=== PATIENT | male | born 1960 | race Caucasian/White ===

== ENCOUNTER 2016-05-26 13:34 | Inpatient (IN) ==
[2016-05-26] MEDS ORDERED: Ondansetron 4 MG/2 ML VIAL IV ONE (13:55)
[2016-05-26] MEDS ORDERED: Aspirin 81 MG TAB.CHEW PO ONE (13:55)
[2016-05-26] MEDS ORDERED: 0.9 % Sodium Chloride 1,000 ML IV SCH (14:00)
--- NOTE | 2016-05-26 14:17 | Emergency Department Note ---
Disposition Clinical Impression: Chest pain, Cough, Nausea and vomiting, Shortness of breath Disposition: Admitted As Inpatient Condition: Serious Referrals: Dara Perry MD [Primary Care Provider] - Forms: Work/School Release, ED Satisfaction Letter General Adult HPI - General Chief complaint: ED General Medical Stated complaint: body aches, yellow emesis Time Seen by Provider: 05/26/16 13:40 Source: patient Limitations: no limitations Nursing Notes Reviewed: Yes Vital Signs Reviewed: Yes - History of Present Illness Pain Scale: 9 - Related Data Home Medications Medication Instructions Recorded Confirmed BuPROPion XL (24 HR) [Wellbutrin 150 mg PO DAILY 12/31/15 05/26/16 XL] Cyclobenzaprine HCl 10 mg PO HS 12/31/15 05/26/16 Gabapentin [Neurontin] 1 - 2 cap PO BID 12/31/15 05/26/16 Lisinopril-HCTZ 10-12.5 [Prinzide 1 tab PO DAILY 12/31/15 05/26/16 10-12.5] Omeprazole [PriLOSEC] 40 mg PO DAILY 12/31/15 05/26/16 Tiotropium [Spiriva] 18 mcg IH DAILY 12/31/15 05/26/16 Etodolac [Lodine] 400 mg PO BID 05/26/16 05/26/16 Finasteride [Proscar] 5 mg PO DAILY 05/26/16 05/26/16 Tamsulosin HCl [Flomax] 0.4 mg PO DAILY 05/26/16 05/26/16 Allergies Allergy/AdvReac Type Severity Reaction Status Date / Time Penicillins [PCN] Allergy Hives Verified 05/26/16 14:35 Winston AdvReac Anaphylaxis Verified 05/26/16 14:35 Past Medical History - Past Medical History Medical history: Reports: COPD, GERD, hypertension, other Surgical history: Reports: appendectomy, herniorrhaphy, orthopedic, other Psychiatric history: Reports: no psych history - Social History Smoking Status: Current every day smoker Smokeless Tobacco Status: No Alcohol use: Reports: none Drug use: Reports: none Physical Exam - General Limitations: no limitations General appearance: alert, in no apparent distress Course Vital Signs Temperature 101 F H 05/26/16 13:36 Pulse Rate 108 05/26/16 13:36 Respiratory Rate 20 05/26/16 13:36 Blood Pressure 132/78 05/26/16 13:36 O2 Sat by Pulse Oximetry 93 L 05/26/16 13:36 Temperature 101 F H 05/26/16 13:36 Pulse Rate 108 05/26/16 14:39 Respiratory Rate 18 05/26/16 14:39 Blood Pressure 123/78 05/26/16 14:39 O2 Sat by Pulse Oximetry 92 L 05/26/16 14:39 Oxygen Delivery Oxygen Delivery Nasal Cannula Medical Decision Making - MDM Narrative Medical decision making narrative: I examined this patient and my medical decision-making was reviewed with the INSTRUMENT AND CONTROL TECHNICIAN/PA/Advanced Practice Nurse/Resident Physician. I agree with the documented findings, disposition and treatment plan as described except to the extent set forth below. Evaluate this patient on arrival with Dr. Barcenas, he presents today with chest pain, then resolved and back also fevers and not feeling well since this morning from 10:30. No cardiac history. Initial EKG was read as acute [place] by the computer when he compared to his old one it does not appear so. We sent it over to Dr. Bains and he says it is probably nonacute an MRI either he said to go ahead and work him up and speak with Dr. Gregoria Ross who is on for interventional cardiology. Nitroglycerin trial workup baby aspirin and reassess. Patient's in agreement with this plan. Chest X-Ray 05/26/16 13:55 IMPRESSION: Negative portable study. D/ / Caryn Jin Cha, MD / Caryn Jin Cha, MD Interpreting Provider: Caryn Jin Cha, MD 1426 hrs. Spoke with the broker associate they said do not call STEMI alert but he would like the patient tocome over to the Civil Technician now. They would lie Brelenta and aspirin. We will get that done and patient will be transferred over the Civil Technician labs are still pending chest x-ray looks good. No widened mediastinum. 1438 hrs.: Spoke with hospitalist also patient once he leaves Civil Technician wall seen a workup with his elevated LFTs. He does appear jaundiced to me also. Uncertain etiology. Patient has been taken by Civil Technician over to the catheter suite. - Lab Data Result diagrams: 05/26/16 14:19 05/26/16 14:19 Lab Results 05/26/16 05/26/16 05/26/16 Range/Units 14:19 14:19 14:19 WBC 14.6 H (4.3-11.1) K/mcL RBC 4.78 (4.19-5.50) M/mcL Hgb 14.4 (12.9-16.9) g/dL Hct 40.3 (37.5-50.1) % MCV 84.3 (83.0-100.0) fL MCH 30.1 (28.0-33.3) pg MCHC 35.7 H (31.6-35.5) g/dL RDW 18.6 H (11.5-14.5) % Plt Count 329 (140-400) K/mcL MPV 10.0 (9.4-12.4) fL Immature Gran % 0.3 (0-4) % Seg Neutrophils % 79.0 % Lymphocytes % 9.0 % Monocytes % 9.5 % Eosinophils % 1.7 % Basophils % 0.5 % Neutrophils # 11.5 H (1.6-8.9) K/mcL Lymphocytes # 1.3 (0.6-4.6) K/mcL Monocytes # 1.4 H (0.0-1.3) K/mcL Eosinophils # 0.3 (0.0-0.6) K/mcL Basophils # 0.1 (0.0-0.2) K/mcL PT 14.5 H (9.4-12.1) Seconds INR 1.3 APTT 30.5 (26.0-36.0) Seconds D-Dimer (0-500) ng/mLFEU Sodium 139 (136-145) mEq/L Potassium 4.4 (3.5-4.5) mEq/L Chloride 105 (98-109) mEq/L Carbon Dioxide 25 (19-29) mEq/L BUN 16 (8-26) mg/dL Creatinine 0.85 (0.72-1.25) mg/dL Est GFR ( Amer) > 60 (> 60) Est GFR (Non-Af Amer) > 60 (> 60) BUN/Creatinine Ratio 19 (6-26) Glucose 90 (70-99) mg/dL Calculated Osmolality 289 (280-300) Calcium 9.8 (8.6-10.8) mg/dL Total Bilirubin 5.4 H (0.2-1.2) mg/dL Direct Bilirubin 3.9 H (0.0-0.5) mg/dL Indirect Bilirubin 1.5 H (0.0-1.2) mg/dL AST 1332 H (5-34) Units/L ALT 1173 H (0-55) Units/L Alkaline Phosphatase 219 H (38-126) Units/L Troponin I (0-0.03) ng/mL Serum Total Protein 7.2 (6.0-8.3) g/dL Albumin 3.3 L (3.5-5.0) g/dL Globulin 3.9 H (2.4-3.5) g/dL Albumin/Globulin Ratio 0.8 L (1.1-2.2) Lipase 13 (8-78) Units/L 05/26/16 05/26/16 Range/Units 14:19 14:19 WBC (4.3-11.1) K/mcL RBC (4.19-5.50) M/mcL Hgb (12.9-16.9) g/dL Hct (37.5-50.1) % MCV (83.0-100.0) fL MCH (28.0-33.3) pg MCHC (31.6-35.5) g/dL RDW (11.5-14.5) % Plt Count (140-400) K/mcL MPV (9.4-12.4) fL Immature Gran % (0-4) % Seg Neutrophils % % Lymphocytes % % Monocytes % % Eosinophils % % Basophils % % Neutrophils # (1.6-8.9) K/mcL Lymphocytes # (0.6-4.6) K/mcL Monocytes # (0.0-1.3) K/mcL Eosinophils # (0.0-0.6) K/mcL Basophils # (0.0-0.2) K/mcL PT (9.4-12.1) Seconds INR APTT (26.0-36.0) Seconds D-Dimer 537 H (0-500) ng/mLFEU Sodium (136-145) mEq/L Potassium (3.5-4.5) mEq/L Chloride (98-109) mEq/L Carbon Dioxide (19-29) mEq/L BUN (8-26) mg/dL Creatinine (0.72-1.25) mg/dL Est GFR ( Amer) (> 60) Est GFR (Non-Af Amer) (> 60) BUN/Creatinine Ratio (6-26) Glucose (70-99) mg/dL Calculated Osmolality (280-300) Calcium (8.6-10.8) mg/dL Total Bilirubin (0.2-1.2) mg/dL Direct Bilirubin (0.0-0.5) mg/dL Indirect Bilirubin (0.0-1.2) mg/dL AST (5-34) Units/L ALT (0-55) Units/L Alkaline Phosphatase (38-126) Units/L Troponin I 0.00 (0-0.03) ng/mL Serum Total Protein (6.0-8.3) g/dL Albumin (3.5-5.0) g/dL Globulin (2.4-3.5) g/dL Albumin/Globulin Ratio (1.1-2.2) Lipase (8-78) Units/L
[2016-05-26] MEDS: Nitroglycerin 0.4 MG TAB.SUBL SL PRN ×3 (14:18→14:38)
[2016-05-26] MEDS ORDERED: *HR* Ticagrelor 90 MG TABLET PO ONE (14:26)
--- NOTE | 2016-05-26 14:26 | Emergency Department Note ---
Disposition Clinical Impression: Cough, Shortness of breath Chest pain Qualifiers: Chest pain type: unspecified Qualified Code(s): R07.9 - Chest pain, unspecified Nausea and vomiting Qualifiers: Vomiting type: unspecified Vomiting Intractability: non-intractable Qualified Code(s): R11.2 - Nausea with vomiting, unspecified Disposition: Admitted As Inpatient Condition: Serious Referrals: Dara Perry MD [Primary Care Provider] - Forms: ED Satisfaction Letter, Work/School Release Time of Disposition: 14:38 Chest Pain HPI - General Chief Complaint: ED General Medical Stated Complaint: body aches, yellow emesis Time Seen by Provider: 05/26/16 13:40 Source: patient Limitations: no limitations Vital Signs Reviewed: Yes Nursing Notes Reviewed: Yes - History of Present Illness HPI Narrative: Patient is a 56-year-old male with hypertension, COPD, GERD. He presents today due to chest pain, shortness of breath, productive cough, rigors. Patient said that the symptoms began this morning around 7 AM. He has had similar chest pain , no pressure, constant and worse with exertion. He has also had productive yellow phlegm. Patient has also had episodes of vomiting with yellow bile. He also admits to generalized abdominal pain. Admits to shortness of breath as well that worsens with exertion. Severity scale (1-10): 9 - Related Data Home Medications Medication Instructions Recorded Confirmed BuPROPion XL (24 HR) [Wellbutrin 150 mg PO DAILY 12/31/15 12/31/15 XL] Cyclobenzaprine HCl 10 mg PO HS 12/31/15 12/31/15 Gabapentin [Neurontin] 1 - 2 cap PO BID 12/31/15 12/31/15 Lisinopril-HCTZ 10-12.5 [Prinzide 1 tab PO DAILY 12/31/15 12/31/15 10-12.5] Omeprazole [PriLOSEC] 40 mg PO DAILY 12/31/15 12/31/15 Tiotropium [Spiriva] 18 mcg IH DAILY 12/31/15 12/31/15 Previous Rx's Medication Instructions Recorded Megestrol Acetate [Megace] 800 mg PO DAILY #400 mls 02/01/16 Hydrocodone/Acetaminophen [Bryant 1 tab PO Q6H PRN #8 tab 04/24/16 5-325 Tablet] Naproxen [Naprosyn] 500 mg PO BID PRN #10 tablet 04/24/16 Allergies Allergy/AdvReac Type Severity Reaction Status Date / Time Penicillins [PCN] AdvReac Hives Verified 04/24/16 17:40 Constitutional: Reports: chills, weakness Cardiovascular: Reports: chest pain Respiratory: Reports: cough, dyspnea Gastrointestinal: Reports: abdominal pain, nausea, vomiting Genitourinary: Denies: urgency, dysuria, frequency Musculoskeletal: Denies: back pain, neck pain Integumentary: Reports: rash Neurological: Reports: headache Chest Pain PMH - Past Medical History Medical history: Reports: COPD, GERD, hypertension, other Surgical history: Reports: appendectomy, herniorrhaphy, orthopedic, other Psychiatric history: Reports: no psych history - Social History Smoking Status: Current every day smoker Alcohol use: Reports: none Drug use: Reports: none Physical Exam - General Limitations: no limitations General appearance: alert, cachectic, other (Appears comfortable, lying on back in pain. ) - Head Head exam: atraumatic, normocephalic, normal inspection - Eye Eye exam: Present: normal appearance, PERRL, EOMI - ENT ENT exam: normal exam, normal oropharynx, mucous membranes moist - Neck Neck exam: Present: normal inspection, full ROM, trachea midline - Chest Chest inspection: Present: normal inspection, symmetric chest wall rise - Respiratory Respiratory exam: Present: wheezes (Mild wheeze in bilateral lower lobes) - Cardiovascular Cardiovascular exam: Present: normal rhythm, tachycardia, normal heart sounds - Abdominal Exam Abdominal exam: Present: soft, tenderness (Generalized abdominal tenderness). Absent: distention, guarding, rebound, rigidity - Extremities Exam Extremities exam: Present: normal inspection, full ROM. Absent: tenderness, pedal edema - Back Exam Back exam: Present: normal inspection, full ROM. Absent: tenderness - Neurological Exam Neurological exam: Present: alert, oriented X3, CN II-XII intact - Psychiatric Psychiatric exam: Present: normal affect, normal mood - Skin Skin exam: Present: warm, dry, intact, normal color Course Course Narrative: Patient is tachycardic, oxygen saturation 93% on room air. He appears cachectic , has active riders on exam. Appears uncomfortable. Complaining of chest pain centered rating it at a 10. We will give aspirin 325, nitroglycerin, his EKG showed elevation in lead V1, V2. This was discussed with both Dr. Bains and Dr. Kessler. Dr. Kessler did not want me to call STEMI but was concerned and wanted me to give the patient belligerent at 180, aspirin 325, and send the patient over to tanbark laborer without finishing his workup and then admit to medicine service. Dr. Chandra accepted patient for admission. Vital Signs Temperature 101 F H 05/26/16 13:36 Pulse Rate 108 05/26/16 13:36 Respiratory Rate 20 05/26/16 13:36 Blood Pressure 132/78 05/26/16 13:36 O2 Sat by Pulse Oximetry 93 L 05/26/16 13:36 Temperature 101 F H 05/26/16 13:36 Pulse Rate 92 05/26/16 14:19 Respiratory Rate 18 05/26/16 14:19 Blood Pressure 131/87 05/26/16 14:19 O2 Sat by Pulse Oximetry 95 05/26/16 14:19 Oxygen Delivery Oxygen Delivery Nasal Cannula Chest Pain - MDM Narrative Medical decision making narrative: Patient is tachycardic, oxygen saturation 93% on room air. He appears cachectic , has active riders on exam. Appears uncomfortable. Complaining of chest pain centered rating it at a 10. We will give aspirin 325, nitroglycerin, his EKG showed elevation in lead V1, V2. This was discussed with both Dr. Bains and Dr. Kessler. Dr. Kessler did not want me to call STEMI but was concerned and wanted me to give the patient belligerent at 180, aspirin 325, and send the patient over to tanbark laborer without finishing his workup and then admit to medicine service. Dr. Chandra accepted patient for admission. S.B.A.RSapphire - S.B.A.RSapphire Situation: Demographics, MOA Background: Presenting Complaint, Relevant PMH, Meds, & Allergies Assessment: Vital Signs, Course and respsone to treatment, Exam Concerns, Patient/Family Expectation, Pertinant Lab Results, Outstanding Labs Recommendation: Barrier(s) to disposition, Recommendation based on pending studies, treatments, or consults S.B.A.RSapphire Report Given to: Dr. Prateek Menezes Repor Time: 14:37
[2016-05-26 14:37] LABS: INR 1.3; Prothrombin Time 14.5 Seconds (9.4-12.1)
[2016-05-26 14:40] LABS: Activated Partial Thrombo Time 30.5 Seconds (26.0-36.0)
[2016-05-26 14:42] LABS: Alanine Aminotransferase 1173 Units/L (0-55); Albumin 3.3 g/dL (3.5-5.0); Albumin/Globulin Ratio 0.8 (1.1-2.2); Alkaline Phosphatase 219 Units/L (38-126); Aspartate Amino Transferase 1332 Units/L (5-34); BUN/Creatinine Ratio 19 (6-26); Bilirubin,Direct 3.9 mg/dL (0.0-0.5); Bilirubin,Indirect 1.5 mg/dL (0.0-1.2); Bilirubin,Total 5.4 mg/dL (0.2-1.2); Blood Urea Nitrogen 16 mg/dL (8-26); Calcium 9.8 mg/dL (8.6-10.8); Carbon Dioxide 25 mEq/L (19-29); Chloride 105 mEq/L (98-109); Globulin 3.9 g/dL (2.4-3.5); Glucose 90 mg/dL (70-99); Lipase 13 Units/L (8-78); Osmolality,Calculated 289 (280-300); Potassium 4.4 mEq/L (3.5-4.5); Sodium 139 mEq/L (136-145); Total Protein 7.2 g/dL (6.0-8.3); eGFR For African Americans > 60 (> 60); eGFR For Non-African Americans > 60 (> 60)
[2016-05-26 14:47] LABS: Basophils # 0.1 K/mcL (0.0-0.2); Basophils % 0.5 %; Eosinophils # 0.3 K/mcL (0.0-0.6); Eosinophils % 1.7 %; Hematocrit 40.3 % (37.5-50.1); Hemoglobin 14.4 g/dL (12.9-16.9); Immature Granulocytes % 0.3 % (0-4); Lymphocytes # 1.3 K/mcL (0.6-4.6); Mean Corpuscular HGB Conc 35.7 g/dL (31.6-35.5); Mean Corpuscular Hemoglobin 30.1 pg (28.0-33.3); Mean Corpuscular Volume 84.3 fL (83.0-100.0); Monocytes # 1.4 K/mcL (0.0-1.3); Monocytes % 9.5 %; Neutrophils # 11.5 K/mcL (1.6-8.9); Platelet Count 329 K/mcL (140-400); Red Blood Count 4.78 M/mcL (4.19-5.50); Red Cell Distribution Width 18.6 % (11.5-14.5)
[2016-05-26] MEDS ORDERED: *HR* Heparin 10,000 UNIT/10 ML VIAL ONE (14:53)
[2016-05-26] MEDS ORDERED: 0.9 % Sodium Chloride 1,000 ML ONE (14:53)
[2016-05-26] MEDS ORDERED: Heparin 1,000 UNITS/500 mL NS 500 ML ONE (14:53)
--- NOTE | 2016-05-26 14:56 | Cardiology Consult Note ---
Date of Encounter: 05/26/16 Time of Encounter: 14:55 Assessment and Plan (1) Unstable angina Current Visit: Yes Status: Acute Patient has ongoing it R 10 chest pain which he says is worse with exertion and associated with shortness of breath. He also has elevated LFTs suggestive of GI pathology. Workup in progress. Due to concerns with an abnormal EKG and ongoing severe chest pain which is concerning for unstable angina and is unrelieved patient will be will taken to the R[facility] Provider Relations. Risks benefits alternatives explained to patient all questions answered he agrees to proceed. He will also need to be worked up for his elevated LFTs fever cough and chills after his catheterization Discussion w patient/family: The assessment and plan as outlined above was discussed with the patient and/or family members who expressed understanding and agreement. All questions were answered. Thank you for involving us in the care of your patient. Please call with any questions. History of Present Illness Consult date: 05/26/16 Requesting physician: Kamari Sarabia Consult reason: Chest pain Chief complaint: Chest pain, unstable angina History of present illness: Mr. Cedeno is a 56 year old male with history of GERD COPD who presents with chest pain shortness of breath nausea vomiting abdominal pain. His EKG shows ST elevation in V1 and V2 and some suggestion of ST elevation 1 and aVL. Pattern somewhat similar to what he had with an EKG done in 2014. But patient complains of midsternal 8 out of 10 chest pain. He says chest pain is worse with exertion shortness of breath is worse with exertion and better with rest. He has no known history of coronary artery disease. His LFTs elevated. Chest x-ray was clear but he had productive cough and sputum was yellowish. On arrival to the catheter lab was complaining of severe irritation central chest pain which he said it started this morning with exertion. Past Med Surg Social Fam HX - Past Medical History Medical history: COPD, GERD, hypertension, other Psychiatric history: no psych history - Past Surgical History Surgical History: appendectomy, herniorrhaphy, orthopedic, other - Social History Smoking Status: Current every day smoker Smokeless Tobacco Status: No Alcohol use: none Drug use: none Medications and Allergies BuPROPion XL (24 HR) [Wellbutrin XL] 150 mg PO DAILY 12/31/15 [History] Cyclobenzaprine HCl 10 mg PO HS 12/31/15 [History] Gabapentin [Neurontin] 1 - 2 cap PO BID 12/31/15 [History] Lisinopril-HCTZ 10-12.5 [Prinzide 10-12.5] 1 tab PO DAILY 12/31/15 [History] Omeprazole [PriLOSEC] 40 mg PO DAILY 12/31/15 [History] Tiotropium [Spiriva] 18 mcg IH DAILY 12/31/15 [History] Etodolac [Lodine] 400 mg PO BID 05/26/16 [History] Finasteride [Proscar] 5 mg PO DAILY 05/26/16 [History] Tamsulosin HCl [Flomax] 0.4 mg PO DAILY 05/26/16 [History] Allergies Penicillins [PCN] Allergy (Verified 05/26/16 14:35) Hives Elkin Adverse Reaction (Verified 05/26/16 14:35) Anaphylaxis All Systems Review: A 10-system review of systems was performed and is negative for pertinent findings except as documented above in the HPI. Physical Examination Vital Signs, Last 4 Hours Temp Pulse Resp BP Pulse Ox 05/26/16 14:39 108 18 123/78 92 L 05/26/16 14:28 70 18 120/88 95 05/26/16 14:19 92 18 131/87 95 05/26/16 13:51 92 L 05/26/16 13:36 101 F H 108 20 132/78 93 L General: Conversant, No Apparent Distress HEENT: Atraumatic, Normocephaly, Mucus Membranes Moist Neck: No JVD, Normal carotid pulses Cardiac: Reg Rate and Rhythm, Normal S1 and S2, No Murmur Lungs: Normal Breath Sounds, No Wheeze, Rales, Rhonchi Neuro: Alert and responsive Abdomen: Soft Skin: No rashes noted on visualized skin Musculoskeletal: No Chest Wall Tenderness Extremities: No Clubbing, No Cyanosis, No Edema, Normal Pulses Results 05/26/16 14:19 05/26/16 14:19 Lab Results 05/26/16 05/26/16 05/26/16 14:19 14:19 14:19 WBC 14.6 H Hgb 14.4 Hct 40.3 Plt Count 329 INR 1.3 APTT 30.5 D-Dimer Sodium 139 Potassium 4.4 Chloride 105 Carbon Dioxide 25 BUN 16 Creatinine 0.85 Glucose 90 Calcium 9.8 Total Bilirubin 5.4 H AST 1332 H ALT 1173 H Alkaline Phosphatase 219 H Troponin I Lipase 13 05/26/16 05/26/16 14:19 14:19 WBC Hgb Hct Plt Count INR APTT D-Dimer 537 H Sodium Potassium Chloride Carbon Dioxide BUN Creatinine Glucose Calcium Total Bilirubin AST ALT Alkaline Phosphatase Troponin I 0.00 Lipase - EKG Interpretation EKG results cardiology: personally reviewed, normal ECG (ST elevations in V1 and V2, aVL. Pattern somewhat similar to EKG from August 2014) Consult Discharge Plan - Plan Referrals: Dara Perry MD [Primary Care Provider] -
[2016-05-26] MEDS ORDERED: Nitroglycerin 1,000 MCG/10 ML VIAL IV ONE (15:00)
--- NOTE | 2016-05-26 15:02 | Pre-Sedation Evaluation ---
Pre-sedation evaluation - Pre-sedation checklist Date of procedure: 05/26/16 Procedure: [facility] Recent Vitals: Last Vital Signs Temp 101 F H 05/26/16 13:36 Pulse 108 05/26/16 14:39 Resp 18 05/26/16 14:39 BP 123/78 05/26/16 14:39 Pulse Ox 92 L 05/26/16 14:39 H&P (including ROS) documented in medical record: Yes Previous reaction to sedatives/anesthetics: No Dietary Status: No solid food in preceding 4 hrs and no liquid in preceding 2 hrs Airway Assessment: Patient can open mouth completely, TMJ function normal Dentition: No loose teeth or bridges Possible difficult airway: No ASA Classification *see protocol: CLASS III-Severe systemic disease Plan of Care: Pt appropriate candidate for procedure/moderate/conscious sedation , Risks/benefits of procedure/sedation discussed w/ patient/family, If not NPO; Risk of intake outweiged by necessity to perform procedure
[2016-05-26] MEDS ORDERED: *HR* FentaNYL (PF) 100 MCG/2 ML VIAL ONE (15:09)
[2016-05-26] MEDS ORDERED: *HR* Midazolam HCl 5 MG/5 ML VIAL IVP ONE (15:09)
[2016-05-26] MEDS ORDERED: 0.9 % Sodium Chloride 1,000 ML IVC SCH ×2 (15:30→21:30)
--- NOTE | 2016-05-26 15:51 | Invasive Diagnostic Lab ---
Name: Christian Cedeno Date of Study: 05/26/2016 Date: 1960 Ht: 178.0 cm /70.1 in Medical Record#: [id number] Age: 56 Wt: 61.2 kg / 134.99 lb Account/Order#: [id number] Gender: Male BSA: 1.77 Order #: [id number] Fluoro Dose: 65 mGy BMI: 19.33 Procedure Physician: Gilles Kessler MD Referring MD: Referring MD: Procedures Performed: LEFT HEART CATH Indications: Unstable Angina Impressions: Coronary arteries are angiographically normal. The left ventricle is normal and has normal contractility EF 60% Recommendations: Optimal medical therapy of patient's disease. Aggressive risk factor modification. History/Risk Factors: Chest Pain GERD Hypertension Current/Recent Smoker Chronic Lung Disease Procedure Access obtained in the right Femoral artery by percutaneous puncture Complications: None, None, None Contrast: Isovue 63ml Closure Device: Perclose ProGlide Hemodynamics: Pressures Site Systolic/ A Wave Diastolic/ V Wave End Diastolic/ Mean HR LV 133 -6 11 96 LV 125 55 67 104 AO 100 39 74 89 LV 137 55 82 91 AO 97 58 77 93 LV Ventriculography Ejection Method: LV Gram Ejection Fraction: 60% Wall Motion: BADILLO Anterobasal Normal Anterolateral Normal Apical: Normal Inferoapical Normal Inferobasal Normal Coronary Dominance: right Lesion Findings/Interventions * Left Main Coronary Artery The LMCA is angiographically free of disease. * Left Anterior Descending The LAD is angiographically free of disease. The 1st Diagonal is angiographically free of disease. * Circumflex The Circumflex is angiographically free of disease. The 1st Marginal is angiographically free of disease. * Right Coronary Artery The RCA is angiographically free of disease. The Right PDA is angiographically free of disease. Updated by RT Kishan (R) on 05/26/2016 3:46:06 PM Gilles Kessler MD electronically signed on 05/26/2016 3:46:42 PM with status of Final
[2016-05-26] MEDS ORDERED: Acetaminophen 325 MG TABLET PO ONE (16:23)
[2016-05-26] MEDS ORDERED: 0.9 % Sodium Chloride 1,000 ML IVC ONE ×3 (16:23→21:30)
[2016-05-26] MEDS ORDERED: MetroNIDAZOLE 500 MG/100 ML 500 MG/100 ML BAG IVPB STA (16:25)
--- NOTE | 2016-05-26 16:25 | Invasive Diagnostic Lab Proc ---
Name: Christian Cedeno Date of Study: 05/26/2016 Date: 1960 Ht: 70.1in Medical Record#: [id number] Age: 56 Wt: 134.99lb Gender: Male BSA: 1.77 Order #: [id number] BMI: 19.33 Physicians Procedure Physician: Gilles Kessler MD Referring MD: Referring MD: Staff Name Position Time In Madi Bustillo RN [place] Boner 03:14 PM Caroline Donovan RT (R) Scrub 03:14 PM Virginia Chase RN Monitor 03:15 PM Indications Indication Unstable Angina Procedures Performed Procedure L HRT ARTERY/VENTRICLE ANGIO Pre-Procedure Checklist Informed consent is complete signed and on chart. H\\T\\P is on chart. ID band is on and ID verified with patient. Patient NPO for procedure The procedure was described for the patient and questions were answered. Blood Pressure: 113/81 ECG is on chart. Rhythm: NSR Plan of Care Patient will tolerate the procedure without complications. Adequate level of comfort will be maintained. Hemodynamics will remain stable Patient will recover from procedure without complications. Respiratory function will be maintained. Cardiac rhythm will remain stable. Patient temperature will be maintained. Patient and/or family have verbalized understanding of the procedure. Patient Education Chief Complaint/Reason for Test: Cardiac Cath Developmental Category: Adult (18-64 years) Developmentally Appropriate for Age: Yes Learning Barriers: None Education Needs: Procedure Education Method: Verbal Information Taught: Cardiac Cath Educational Evaluation: Able to repeat information Intravenous Access Time IV Size Location DC'd Fluid/Drip Rate Units RN 03:02 PM 18g 1 1/4" Patent On Arrival Lt Antecubital 0.9NaCl 25 ml/hr Virginia Chase RN 03:02 PM 18g 1 1/4" Patent On Arrival Rt Antecubital Allergies Penicillin strawberries PCN Vital Signs Time BP (mmHg) HR (bpm) O2 Sat. RR (bpm) LOC 03:03 PM 123 / 78 108 92 % 18 5 = Fully awake and oriented or at pre-proc level 03:16 PM / % 5 = Fully awake and oriented or at pre-proc level 03:16 PM / % 4 = Oriented but drowsy 03:15 PM 113 / 83 74 93 % 17 03:20 PM 120 / 73 86 93 % 30 03:25 PM 108 / 70 91 94 % 32 03:30 PM 126 / 76 91 95 % 28 03:48 PM 104 / 75 110 93 % 22 4 = Oriented but drowsy Procedural Medications Time Medication Dose Units Method Given By 03:15 PM Oxygen 2 L/min nasal cannula Madi Bustillo RN 03:16 PM Versed 1 mg Intravenous Madi Bustillo RN 03:16 PM Fentanyl 50 mcg Intravenous Madi Bustillo RN 03:18 PM Lidocaine 2% 18 ml Subcutaneous Gilles Kessler MD ASA Classification: CLASS III- Severe systemic disease (i.e. prior AMI, diabetes with vascular complications, morbid obesity) Lexii Score Preprocedure Postprocedure Activity 2- Moves 4 extremities sustained head lift Activity 2- Moves 4 extremities sustained head lift Circulation 2- SBP +/= 20 points of pre-anesthetic level Circulation 2- SBP +/= 20 points of pre-anesthetic level Consciousness 2- Awake and alert oriented x 3 Consciousness 2- Awake and alert oriented x 3 O2 Saturation 2- Able to maintain O2 satruation of 92% on room air O2 Saturation 2- Able to maintain O2 satruation of 92% on room air Respiratory 2- Able to deep breathe and cough well Respiratory 2- Able to deep breathe and cough well Total Score 10 Total Score 10 Contrast Agent: Isovue Diagnostic Contrast: 63 ml Total Contrast: 63 ml Fluoro Dose: 65 mGy Procedure Log Time Note Enter By 03:05 PM CathStat 03:10 PM Pt arrived to [facility] 1 at 15:10 dspell 03:10 PM Physician arrived 15:10 03:10 PM Ash and radha completed 03:10 PM Sign in performed according to hospital policy. 03:10 PM Procedure start 15:10 03:14 PM Vitals capture started with the following parameters, Patient=Adult, Interval=5 min, Initial Klyddxbr=215 mmHg, Deflation Rate=5 mmHg 03:14 PM Madi Bustillo RN Position: [place]er Time in: 15:14 03:15 PM Caroline Donovan RT (R) Position: Scrub Time in: 15:14 [facility] 03:15 PM Virginia Chase RN Position: Monitor Time in: 15:15 [facility] 03:15 PM Patient charges- Angio tray pack, Navilyst 3mm J, Pulse Oximetry and ACIST tubing and transducer dspell 03:15 PM Case Delayed No dspell 03:15 PM HR=74 bpm, CKOQ=359/83 mmhg, SpO2=93.0 %, Resp=17 B/min, Comment=nsr 03:15 PM Hair removed from procedure site in procedure lab using clippers. Bilateral groin prepped with Chloraprep by Angie Solorio RT (R) then patient draped. Skin intact. dsp 03:15 PM Time: 15:15 Oxygen on at 2 L/min per nasal cannula by Madi Bustillo RN kayleen 03:16 PM Time: 15:16 Versed 1 mg Intravenous Given by Madi Bustillo RN 03:16 PM Time: 15:16 Fentanyl 50 mcg Intravenous Given by Madi Bustillo RN 03:16 PM Time: 15:16 Patient comfortable and pain free: Yes dsp:16 PM Time: 15:16LOC: 5 = Fully awake and oriented or at pre-proc level dsp 03:16 PM Clinical Presentation: Unstable angina dsp 03:17 PM Recorded ECG: HR=89 Condition=Condition 1 03:18 PM Time out performed according to hospital policy dsp 03:20 PM Time: 15:18 18 ml Lidocaine 2% to right groin Subcutaneous Given by Gilles Kessler MD 03:20 PM HR=86 bpm, GOJD=537/73 mmhg, SpO2=93.0 %, Resp=30 B/min, Comment=nsr 03:20 PM Access obtained by percutaneous puncture. 6Fr 10cm Terumo [place] sheath placed in right Femoral artery. [id number] dspell 03:20 PM 5Fr FL 4 catheter inserted over the wire DN dspell 03:21 PM LCA angiography performed in multiple views. dspell 03:21 PM Catheter removed dspell 03:22 PM 5Fr FR 4 catheter inserted over the wire [facility] dspell 03:23 PM RCA angiography performed in multiple views. dspell 03:24 PM Catheter removed dspell 03:24 PM 5Fr Pigtail catheter inserted over the wire [facility] dspell 03:24 PM Recorded Pressure: LV, HR=96, Condition=Condition 1 (Left Ventricle) LV 133/-6/11 03:24 PM Recorded Pressure: LV, Ao, HR=92, Condition=Condition 1 (Left Ventricle) LV 137/55/82, (Aorta) Ao 97/58/77 03:24 PM Recorded Pressure: LV, Ao, HR=90, Condition=Condition 1 (Left Ventricle) LV 125/55/67, (Aorta) Ao 100/39/74 03:25 PM Catheter removed dspell 03:25 PM Coronary Dominance: right dspell 03:25 PM HR=91 bpm, FMIA=860/70 mmhg, SpO2=94.0 %, Resp=32 B/min, Comment=nsr 03:28 PM Procedure completed at 15:28 dspell 03:29 PM Sign out completed: Radiation Dose 65 mGy Fluoro Time: 1.1 Isovue 370 - 200ml contrast 63 ml given by Gilles Kessler MD. Complications: NoneCardiac Rehab Consult needed: NoConfirmed administered medications: Yes dspellman 03:29 PM Isovue 370 - 200ml,1 Bottle(s) used. dspell 03:30 PM Arterial sheath pulled, Perclose closure device used and was Successful S/N. dspellman 03:30 PM Post ECG NSR dspellman 03:30 PM HR=91 bpm, TEYN=737/76 mmhg, SpO2=95.0 %, Resp=28 B/min, Comment=nsr 03:30 PM Post Blood Pressure 126/76 dspellman 03:30 PM 15:30 Post Pulses Bilateral DP \\T\\ PT 1+ dspell 03:31 PM Information taught Cardiac Cath dspell 03:31 PM Education needs Procedure, Plan of Care, and Responsibilities of Patient in Care dspell 03:31 PM Learning barriers :None dspell 03:31 PM Education Methods Verbal dspell 03:31 PM Education evaluation Able to repeat information dspell 03:31 PM Site status No bleeding/hematoma - Rt Groin as reported by Carmen West RT at 15:31 dspell 03:31 PM Opsite applied dspell 03:31 PM Plavix, Effient or Brilinta given No dspellman 03:31 PM Delay to floor No dspellman 03:32 PM Time: 15:16LOC: 4 = Oriented but drowsy dspellman 03:32 PM Patient out of room: 15:32 dspellman 03:32 PM Family placed in consult room. dspellman 03:32 PM Complications: None dspellman 03:32 PM Fluoro Time: 1.1 dspellman 03:32 PM Isovue 370 - 200ml contrast 63 ml given by Gilles Kessler MD. dspellman 03:33 PM Radiation Dose 65 mGy dspellman 03:44 PM Report given to Fany ODELL Pt taken to E Room #14. 15:44 dspellman 03:44 PM Plavix, Effient or Brilinta given No dspellman 03:44 PM Delay to floor Room is dirty dspellman 03:45 PM Patient out of room: 15:45 dspellman 03:45 PM Family placed in consult room. dspellman 03:45 PM Complications: None dspellman 03:47 PM patient arrive to holding room 2 mprater 03:[address] ng aware of temp 101.5 tempanic , no new orders mprater 04:00 PM transfered patient to [facility], report given to fany sen Complications Complication None None None Hemodynamics Pressures Site Systolic/A Wave Diastolic/V Wave Mean LV 133 -6 11 LV 125 55 67 AO 100 39 74 LV 137 55 82 AO 97 58 77 Post Procedure Information Blood Pressure: 126/76 mmHg Rhythm: NSR Post procedural instructions were given Closure Device Time Device Success/Fail 05/26/2016 3:33:00 PM Perclose ProGlide Successful Site Checks Time Location Status Staff Sheath In? Note 03:31 PM Rt Groin No bleeding/hematoma Carmen West RT 03:48 PM Rt Groin No bleeding/ No Hematoma Zabrina Dunlap RN Pulses Time Site Pre-Procedure Post-Procedure Note 3:30:00 PM Bilateral DP \\T\\ PT 1+ 05/26/2016 3:00:00 PM Bilateral DP \\T\\ PT 1+ 05/26/2016 3:48:00 PM Bilateral DP \\T\\ PT 1+ Updated by Zabrina Dunlap RN on 05/26/2016 4:18:22 PM Zabrina Dunlap RN electronically signed on 05/26/2016 4:19:16 PM with status of Final
[2016-05-26] MEDS ORDERED: Naloxone 0.4 MG/ML INJ IVP PRN ×2 (16:29→21:30)
[2016-05-26] MEDS ORDERED: Acetaminophen 325 MG TABLET PO PRN ×2 (16:29→21:30)
[2016-05-26] MEDS ORDERED: *HR* Morphine 2 MG/ML SYRINGE IVP PRN ×2 (16:29→21:30)
[2016-05-26] MEDS ORDERED: Ondansetron 4 MG/2 ML VIAL IVP PRN ×2 (16:29→21:30)
[2016-05-26] MEDS ORDERED: Levofloxacin 500 MG/100 ML 500 MG/100 ML BAG IVPB ONE (17:00)
--- NOTE | 2016-05-26 17:16 | Internal Med History&Physical ---
Date of Encounter: 05/26/16 Time of Encounter: 17:30 Assessment and Plan (1) Sepsis Current visit: Yes Status: Acute source could be abdominal. LFT elevated: AST 1332. ALT 1173. TB 5.4. IV fluids. IV levaquin. IV flagyl. NPO. check UA. CT abdomen. US abdomen. Qualifiers: Sepsis type: sepsis due to unspecified organism Qualified Code(s): A41.9 - Sepsis, unspecified organism (2) Nausea and vomiting Current visit: Yes Status: Acute plan as above. Qualifiers: Vomiting type: unspecified Vomiting Intractability: non-intractable Qualified Code(s): R11.2 - Nausea with vomiting, unspecified Internal Medicine - H&P: HPI Chief complaint: nausea, vomiting, cough and chest pain this morning Admitted From: Home Plans for Post Hospital Care: Home History of present illness: Mr. Cedeno is a 56 year old male with past medical history of COPD, and HTN who felt sick yesterday evening but went to bed and slept well. This morning, he felt nauseous and vomited multiple times. He also complaint of cough and epigastric and mid-sternal chest pain. In our ED, his initial EKG showed possible STEMI, they called interventional cardiology who cancel the STEMi but took patient to cardiac cath technician. LHC showed normal coronaries. On arrival to the floor , patient was febrile temp 101.7, HR 92, RR 26, BP 152/81. Past Med Surg Social Fam HX - Past Medical History Medical history: COPD, GERD, hypertension, other Psychiatric history: no psych history - Past Surgical History Surgical History: appendectomy, herniorrhaphy, orthopedic, other - Social History Smoking Status: Current every day smoker Smokeless Tobacco Status: No Alcohol use: none Drug use: none - Family History Mother Hx Family Cardiac Disorders: Yes (diabetes) Internal Medicine - H&P: Meds BuPROPion XL (24 HR) [Wellbutrin XL] 150 mg PO DAILY 12/31/15 [History] Cyclobenzaprine HCl 10 mg PO HS 12/31/15 [History] Gabapentin [Neurontin] 1 - 2 cap PO BID 12/31/15 [History] Lisinopril-HCTZ 10-12.5 [Prinzide 10-12.5] 1 tab PO DAILY 12/31/15 [History] Omeprazole [PriLOSEC] 40 mg PO DAILY 12/31/15 [History] Tiotropium [Spiriva] 18 mcg IH DAILY 12/31/15 [History] Etodolac [Lodine] 400 mg PO BID 05/26/16 [History] Finasteride [Proscar] 5 mg PO DAILY 05/26/16 [History] Tamsulosin HCl [Flomax] 0.4 mg PO DAILY 05/26/16 [History] Allergies Penicillins [PCN] Allergy (Verified 05/26/16 14:35) Hives [place] Adverse Reaction (Verified 05/26/16 14:35) Anaphylaxis All Systems PM: A 10-system review of systems was performed and is negative for pertinent findings except as documented above in the HPI. - Constitutional Vitals: Temp Pulse Resp BP Pulse Ox 102.9 F H 92 24 152/81 92 L 05/26/16 16:30 05/26/16 16:30 05/26/16 16:30 05/26/16 16:30 05/26/16 16:30 General appearance: Present: cooperative, mild distress, A&O X 3, pleasant, answers questions appropriately - Eye Eye exam: Present: PERRL, scleral icterus - ENT ENT exam: Present: mucous membranes dry - Neck Neck exam general surgery: Present: supple, trachea midline. Absent: lymphadenopathy - Respiratory Respiratory exam: Present: CTAB. Absent: wheezes - Cardiovascular Cardiovascular exam: Present: tachycardia - GI/Abdominal GI/Abdominal exam: Present: soft. Absent: tenderness - Back Exam Back exam: Absent: CVA tenderness (L), CVA tenderness (R) - Neurological Exam Neurological exam: Present: alert, oriented X3, no focal deficits. Absent: facial droop, speech deficit - Skin Additional comments: jaundice Internal Med - H&P Results - Labs CBC & Chem 7: 05/26/16 14:19 05/26/16 14:19
[2016-05-26] MEDS ORDERED: *HR* Heparin 5,000 UNIT/ML VIAL SQ SCH (19:00)
[2016-05-26] MEDS ORDERED: Nitroglycerin 0.4 MG TAB.SUBL SL PRN (21:30)
[2016-05-26 21:46] LABS: Salicylate < 5.0 mg/dL (15-30)
[2016-05-26] MEDS ORDERED: Ketorolac 30 MG/ML VIAL IVP STA (22:27)
[2016-05-26] MEDS: Ipratropium/Albuterol Neb 3 ML IH SCH (22:27)
[2016-05-26] MEDS ORDERED: Ipratropium/Albuterol Neb 3 ML IH SCH (23:00)
[2016-05-26] MEDS: *HR* Morphine 2 MG/ML SYRINGE IVP PRN (23:50)
[2016-05-27] MEDS ORDERED: 0.9 % Sodium Chloride 500 ML ONE (00:07)
[2016-05-27 00:18] LABS: Basophils % 0.2 %; Hematocrit 29.7 % (37.5-50.1); Immature Granulocytes % 0.6 % (0-4); Immature Platelets 4.8 % (1.1-6.1); Lymphocytes # 1.9 K/mcL (0.6-4.6); Lymphocytes % 7.9 %; Mean Corpuscular Hemoglobin 30.6 pg (28.0-33.3); Mean Corpuscular Volume 84.9 fL (83.0-100.0); Monocytes # 2.1 K/mcL (0.0-1.3); Monocytes % 8.6 %; Platelet Count 312 K/mcL (140-400); Red Cell Distribution Width 18.8 % (11.5-14.5); Segmented Neutrophils % 82.7 %
[2016-05-27 00:19] LABS: Basophils # 0.1 K/mcL (0.0-0.2); Hemoglobin 10.7 g/dL (12.9-16.9)
[2016-05-27 00:23] LABS: INR 1.8; Prothrombin Time 19.5 Seconds (9.4-12.1)
[2016-05-27] MEDS ORDERED: MetroNIDAZOLE 500 MG/100 ML 500 MG/100 ML BAG IVPB SCH (00:30)
[2016-05-27 00:33] LABS: Alanine Aminotransferase 764 Units/L (0-55); Albumin/Globulin Ratio 0.9 (1.1-2.2); Alkaline Phosphatase 150 Units/L (38-126); Aspartate Amino Transferase 737 Units/L (5-34); BUN/Creatinine Ratio 18 (6-26); Bilirubin,Indirect 1.5 mg/dL (0.0-1.2); Blood Urea Nitrogen 19 mg/dL (8-26); Carbon Dioxide 18 mEq/L (19-29); Chloride 107 mEq/L (98-109); Globulin 2.8 g/dL (2.4-3.5); Glucose 126 mg/dL (70-99); Osmolality,Calculated 288 (280-300); Phosphorous 4.5 mg/dL (2.3-4.7); Potassium 4.1 mEq/L (3.5-4.5); Sodium 137 mEq/L (136-145); eGFR For African Americans > 60 (> 60); eGFR For Non-African Americans > 60 (> 60)
[2016-05-27 00:34] LABS: Albumin 2.5 g/dL (3.5-5.0); Bilirubin,Total 4.5 mg/dL (0.2-1.2); Calcium 8.1 mg/dL (8.6-10.8); Total Protein 5.3 g/dL (6.0-8.3)
[2016-05-27] MEDS ORDERED: *HR* Morphine 2 MG/ML SYRINGE IVP ONE ×2 (00:47→00:48)
[2016-05-27] MEDS ORDERED: 0.9 % Sodium Chloride 1,000 ML ONE ×4 (00:57→08:01)
--- NOTE | 2016-05-27 01:10 | Event Note ---
Date of Encounter: 05/27/16 Time of Encounter: 01:07 - Cardiology Event Note Patient had a left heart catheter earlier today. Following the catheter he had some mild mild abdominal pain. He had also presented with abdominal pain prior to the catheter. He had some oozing around the catheter site area and the nurse held pressure for 45 minutes. This was around 6:00 in the evening. At 9: 00 he had some oral oozing and pressure was applied for about 20 minutes with resolution. At that time his heart rate was in 80s blood pressure in the 120s. At close to midnight he developed some firmness in the abdomen. Prior to that he was coughing. There is noted he was tachycardic and his blood pressure dropped into the 70s systolic. CT abdomen showed a retroperitoneal bleed. Pressure was applied again and patient was transferred to the ICU. On examination ICU patient was tachycardic blood pressure in the 1 teens on 5 mics of dopamine. He received 2 units of blood getting 2 more units of blood. I manually applied pressure for 20+ minutes and then then placed a femstop device. Currently hemodynamically stable. He is also on a BiPAP. He will be monitored closely in ICU with further blood products as needed. Also appears to now be septic. Being treated for that. We will continue to monitor him closely.
--- NOTE | 2016-05-27 01:17 | Event Note ---
Date of Encounter: 05/26/16 Time of Encounter: 23:45 Rapid Response Called to bedside at 2344 hrs. to evaluate patient with rapid decline in mental status and vital signs. Patient had underwent left heart catheterization the day. He was made of possible right femoral pseudoaneurysm and retroperitoneal bleed. Patient was transferred from to unit from higher level medical attention. Left heart catheterization femoral artery artery approach showed evidence of oozing blood and enlarging groin hematoma. Blood pressure dropped from 126/87 at 2230 hrs. to 90/78 at 2344 hrs. Heart rate increased from 88 at 2230 hrs. to 121 at 2344 hrs. Respiratory rate at 2230 hrs. 18 at 2344 hrs. 26. Patient arousable but lethargic. Reporting pain at a 10 out of 10 in severity right lower quadrant. Direct application of pressure to femoral artery applied for compression tamponade. CT of abdomen and pelvis with intravenous contrast demonstrated a large right hematoma with evidence of active extravasation arising from the right external iliac/femoral artery extending retroperitoneal and intraperitoneal. Likely secondary to a ruptured pseudoaneurysm or cerebrovascular injury. Lesion measuring approximately 5.9 x 8.4 cm in axial dimension and 15.4 cm in craniocaudad extension. Mild patchy airspace opacities at the lung bases seen. Likely due to atelectasis versus edema versus infiltrate. Emergent interventions included: Infusion of 2 units universal donor/O negative/ packed red blood cells+ 2 units fresh frozen plasma+ 10 mg of vitamin K IV. Type and screen for 4 units of packed red blood cells plus additional blood products as indicated. IV dopamine drip+ 0.9 normal saline IV infusions. BiPAP application for respiratory support. IV morphine and Zofran for analgesic and antiemetic support. Services notified: Interventional cardiology, cardiology consulting service and vascular surgery. Patient transferred from to intensive care unit bed 4. Orders written. Vital Signs Temp Pulse Resp BP Pulse Ox 05/27/16 01:12 120 26 105/89 100 05/27/16 01:00 129 26 92/72 125 H 05/27/16 00:45 99.5 F 123 30 116/90 122 H 05/27/16 00:19 30 98 05/26/16 22:38 20 89 L 05/26/16 19:57 99.6 F 89 32 111/80 88 L 05/26/16 18:10 100.9 F H 86 18 126/82 94 L 05/26/16 17:45 102.7 F H 85 20 125/81 94 L 05/26/16 17:30 101.3 F H 83 20 127/86 94 L 05/26/16 17:15 102.3 F H 83 22 129/81 91 L 05/26/16 17:00 103.9 F H 88 22 150/79 94 L 05/26/16 16:45 102.9 F H 87 24 146/74 93 L 05/26/16 16:30 102.9 F H 92 24 152/81 92 L 05/26/16 16:15 101.7 F H 87 26 131/76 92 L 05/26/16 15:08 18 121/81 05/26/16 14:39 108 18 123/78 92 L 05/26/16 14:28 70 18 120/88 95 05/26/16 14:19 92 18 131/87 95 05/26/16 13:51 92 L 05/26/16 13:36 101 F H 108 20 132/78 93 L Intake and Output 05/26/16 05/26/16 05/27/16 15:59 23:59 07:59 Intake Total 3001 / 3001 Output Total 625 / 625 Balance -625 / -625 3001 / 3001 Intake: IV Fluids 2351 / 2351 0.9 % Sodium Chloride 1, 1000 / 1000 000 ML @ 500 mls/hr IV CONT CORTNEY Rx#:[id number] 0.45% Sodium Chloride 300 / 300 1000 Ml 1000 Ml 1,000 ML @ 100 mls/hr IVC .Q10H CORTNEY Rx#:[id number] 0.9 % Sodium Chloride 1, 1000 / 1000 000 ML @ 3750 mls/hr IVC .Q16M ONE Rx#:[id number] AquaMephyton 10 MG In 0.9 51 / 51 % Sodium Chloride 50 ML @ 100 mls/hr IVPB ONCE STA Rx#:[id number] Blood Product 650 / 650 Rbcs Leuko Poor As-1 325 / 325 Unit [id number] Rbcs Leuko Poor As-1 325 / 325 Unit [id number] Output: Urine 625 / 625 Other: Weight 61.235 kg 59.9 kg Blood Glucose* 122 Short CBC 05/27/16 05/26/16 Range/Units 00:08 14:19 WBC 24.2 H D 14.6 H (4.3-11.1) K/mcL Hgb 10.7 L D 14.4 (12.9-16.9) g/dL Hct 29.7 L 40.3 (37.5-50.1) % Plt Count 312 329 (140-400) K/mcL Neutrophils # 20.0 H 11.5 H (1.6-8.9) K/mcL BMP 05/27/16 05/26/16 Range/Units 00:08 14:19 Sodium 137 139 (136-145) mEq/L Potassium 4.1 4.4 (3.5-4.5) mEq/L Chloride 107 105 (98-109) mEq/L Carbon Dioxide 18 L 25 (19-29) mEq/L BUN 19 16 (8-26) mg/dL Creatinine 1.06 0.85 (0.72-1.25) mg/dL Glucose 126 H 90 (70-99) mg/dL Calcium 8.1 L D 9.8 (8.6-10.8) mg/dL Cardiac Enzymes 05/26/16 Range/Units 14:19 Troponin I 0.00 (0-0.03) ng/mL Liver Function 05/27/16 05/26/16 Range/Units 00:08 14:19 Total Bilirubin 4.5 H 5.4 H (0.2-1.2) mg/dL Direct Bilirubin 3.0 H 3.9 H (0.0-0.5) mg/dL AST 737 H 1332 H (5-34) Units/L ALT 764 H 1173 H (0-55) Units/L Alkaline Phosphatase 150 H 219 H (38-126) Units/L Albumin 2.5 L D 3.3 L (3.5-5.0) g/dL Abnormal lab results WBC 24.2 K/mcL (4.3-11.1) H D 05/27/16 00:08 RBC 3.50 M/mcL (4.19-5.50) L 05/27/16 00:08 Hgb 10.7 g/dL (12.9-16.9) L D 05/27/16 00:08 Hct 29.7 % (37.5-50.1) L 05/27/16 00:08 MCHC 36.0 g/dL (31.6-35.5) H 05/27/16 00:08 RDW 18.8 % (11.5-14.5) H 05/27/16 00:08 Neutrophils # 20.0 K/mcL (1.6-8.9) H 05/27/16 00:08 Monocytes # 2.1 K/mcL (0.0-1.3) H 05/27/16 00:08 PT 19.5 Seconds (9.4-12.1) H 05/27/16 00:08 D-Dimer 537 ng/mLFEU (0-500) H 05/26/16 14:19 Carbon Dioxide 18 mEq/L (19-29) L 05/27/16 00:08 Glucose 126 mg/dL (70-99) H 05/27/16 00:08 POC Glucose 122 (58-89) H 05/27/16 00:47 Calcium 8.1 mg/dL (8.6-10.8) L D 05/27/16 00:08 Magnesium 1.0 mg/dL (1.6-2.6) L 05/27/16 00:08 Total Bilirubin 4.5 mg/dL (0.2-1.2) H 05/27/16 00:08 Direct Bilirubin 3.0 mg/dL (0.0-0.5) H 05/27/16 00:08 Indirect Bilirubin 1.5 mg/dL (0.0-1.2) H 05/27/16 00:08 AST 737 Units/L (5-34) H 05/27/16 00:08 ALT 764 Units/L (0-55) H 05/27/16 00:08 Alkaline Phosphatase 150 Units/L (38-126) H 05/27/16 00:08 Serum Total Protein 5.3 g/dL (6.0-8.3) L D 05/27/16 00:08 Albumin 2.5 g/dL (3.5-5.0) L D 05/27/16 00:08 Albumin/Globulin Ratio 0.9 (1.1-2.2) L 05/27/16 00:08 Salicylates < 5.0 mg/dL (15-30) L 02/06/17 21:18 Acetaminophen 3.0 mcg/mL (10-30) L 05/26/16 21:18 Chest X-Ray 05/26/16 13:55 IMPRESSION: Negative portable study. D/ / Caryn Jin Cha, MD / Caryn Jin Cha, MD Interpreting Provider: Caryn Jin Cha, MD Abdomen Ultrasound 05/26/16 16:27 IMPRESSION: 1. 0.35 cm gallbladder polyp or non shadowing gallstone. No evidence of cholecystitis. D/ / Jorge Gandara MD / Jorge Gandara MD Interpreting Provider: Jorge Gandara MD Abdomen/Pelvis CT 05/26/16 17:46 IMPRESSION: 1. Large right hematoma with evidence of active extravasation arising from the right external iliac/femoral artery extending both retroperitoneal and intraperitoneal. This could be secondary to a ruptured pseudoaneurysm or other vascular injury. 2. Mild patchy airspace opacities at the lung bases could be due to atelectasis, edema, or infiltrate. Critical results were called by Dr. Kevin Brown to Dr. Carr on 05/26/2016 at 21:12. D/ / Kevin Brown MD / Kevin Brown MD Interpreting Provider: Kevin Brown MD
[2016-05-27] MEDS ORDERED: Ondansetron 4 MG/2 ML VIAL IVP PRN (01:19)
[2016-05-27] MEDS ORDERED: *HR* LORazepam 2 MG/ML VIAL IVP PRN (01:19)
[2016-05-27] MEDS ORDERED: *HR* Morphine 2 MG/ML SYRINGE IVP PRN (01:19)
[2016-05-27] MEDS ORDERED: Metoclopramide 10 MG/2 ML VIAL IVP PRN (01:19)
--- NOTE | 2016-05-27 01:27 | Vascular/Endovasc Consult Note ---
Date of Encounter: 05/27/16 Time of Encounter: 01:10 Assessment and Plan (1) Retroperitoneal hematoma Current Visit: Yes Status: Acute CT scan reviewed. The patient has a large right retroperitoneal hematoma. Contrast enhanced hematoma is noted to be present along the right external iliac artery on the CT scan. He has received PRBCs and FFP. He was initially on dopamine, but is have been discontinued. He was tachycardia, but nos is in normal sinus rhythms and is normotensive. Direct pressure was held over his hematoma and a FEM-Stop is now in place. He has a right lower quadrant hematoma. Continue with rescuscitation and correction of coagulopathy. Follow serial hemoglobins and coags. If the patient does not improve clinically, will consider angiography with possible intervention versus surgical exploration. Patient discussed with interventional cardiology. (2) Hypertension Current Visit: Yes Status: Chronic Qualifiers: Hypertension type: essential hypertension Qualified Code(s): I10 - Essential (primary) hypertension (3) Tobacco abuse Current Visit: Yes Status: Chronic - History of Present Illness Consult date: 05/27/16 Requesting physician: Bethel Carr Consult reason: Retroperitoneal hematoma Chief complaint: Hypotension after left heart cath History of present illness: Mr. Cedeno is a 56 year old male who present to [facility] with abdominal and chest pain. The patient underwent a left heart cath via the right common femoral artery. The left heart cath was unremarkable. The patient was transferred to the floor. After the procedure, the patient developed a hematoma and had saturation of several bandages. He then was transferred to to . An ultrasound revealed a retroperitoneal bleed. The patient then underwent a CT scan that revealed a retroperitoneal hematoma. The patient became progressively hypotensive. He was seen by the Hospitalist Service and then given crystalloid and PRBCs. He was noted to have an elevated INR and FFP was given as well. He was started on Dopamine and transferred to the ICU where he is now normotensive and no longer requiring pressors. He remains tachycardic. He has COPD and is now receiving BIPAP. He is responsive and alert. Complains of right lower quadrant pain. Past Med Surg Social Fam HX - Past Medical History Medical history: COPD, GERD, hypertension, other Psychiatric history: no psych history - Past Surgical History Surgical History: appendectomy, herniorrhaphy, orthopedic, other - Social History Smoking Status: Current every day smoker Smokeless Tobacco Status: No Alcohol use: none Drug use: none - Family History Father History Unknown: Yes Mother Hx Family Cardiac Disorders: Yes (diabetes) Medications and Allergies BuPROPion XL (24 HR) [Wellbutrin XL] 150 mg PO DAILY 12/31/15 [History] Cyclobenzaprine HCl 10 mg PO HS 12/31/15 [History] Gabapentin [Neurontin] 1 - 2 cap PO BID 12/31/15 [History] Lisinopril-HCTZ 10-12.5 [Prinzide 10-12.5] 1 tab PO DAILY 12/31/15 [History] Omeprazole [PriLOSEC] 40 mg PO DAILY 12/31/15 [History] Tiotropium [Spiriva] 18 mcg IH DAILY 12/31/15 [History] Etodolac [Lodine] 400 mg PO BID 05/26/16 [History] Finasteride [Proscar] 5 mg PO DAILY 05/26/16 [History] Tamsulosin HCl [Flomax] 0.4 mg PO DAILY 05/26/16 [History] Allergies Penicillins [PCN] Allergy (Verified 05/26/16 14:35) Hives [place] Adverse Reaction (Verified 05/26/16 14:35) Anaphylaxis All Systems Review: A 10-system review of systems was performed and is negative for pertinent findings except as documented above in the HPI. Exam Vital Signs, Last 4 Hours Temp Pulse Resp BP Pulse Ox 05/27/16 01:15 110 48 114/86 99 05/27/16 01:12 120 26 105/89 100 05/27/16 01:05 123 28 110/80 100 05/27/16 01:00 129 26 92/72 100 05/27/16 00:45 99.5 F 123 30 116/90 100 05/27/16 00:19 30 98 05/26/16 22:38 20 89 L General: Present: Conversant HEENT: Present: Trachea midline, Pupils equal Neck: Absent: JVD Cardiac: Present: Reg Rate and Rhythm, Normal S1 and S2, No Murmur Lungs: Present: Normal Breath Sounds Neuro: Present: Alert and responsive, No focal deficits noted, Motor nerves grossly intact, Sensory nerves grossly intact Abdomen: Present: Soft (except at right lower quadrant. Patient has RLQ hematoma and tenderness) Vascular: Present: Normal capillary refill, Pulse, normal, Other (nor right femoral hematoma). Absent: Cyanosis, Edema Skin: Present: No rashes noted on visualized skin Musculoskeletal: Present: No Chest Wall Tenderness Consult Discharge Plan - Plan Referrals: Dara Perry MD [Primary Care Provider] -
[2016-05-27 01:48] LABS: Alanine Aminotransferase 763 Units/L (0-55); Albumin 2.5 g/dL (3.5-5.0); Albumin/Globulin Ratio 0.9 (1.1-2.2); Alkaline Phosphatase 151 Units/L (38-126); Aspartate Amino Transferase 739 Units/L (5-34); BUN/Creatinine Ratio 18 (6-26); Blood Urea Nitrogen 19 mg/dL (8-26); Carbon Dioxide 16 mEq/L (19-29); Chloride 107 mEq/L (98-109); Globulin 2.8 g/dL (2.4-3.5); Glucose 125 mg/dL (70-99); Osmolality,Calculated 288 (280-300); Potassium 4.2 mEq/L (3.5-4.5); Sodium 137 mEq/L (136-145); Total Protein 5.3 g/dL (6.0-8.3); eGFR For African Americans > 60 (> 60); eGFR For Non-African Americans > 60 (> 60)
[2016-05-27 01:49] LABS: Bilirubin,Total 4.5 mg/dL (0.2-1.2)
[2016-05-27] MEDS: MetroNIDAZOLE 500 MG/100 ML 500 MG/100 ML BAG IVPB SCH ×4 (02:08→23:25)
[2016-05-27] MEDS: *HR* Morphine 2 MG/ML SYRINGE IVP PRN ×5 (02:09→20:42)
[2016-05-27] MEDS ORDERED: 0.9 % Sodium Chloride 250 ML ONE ×2 (03:11→09:00)
[2016-05-27 03:16] LABS: Bilirubin,Urine Small (Negative); Blood,Urine Negative (Negative); Clarity,Urine Clear (Clear); Color,Urine Dark Yellow (Yellow); Glucose,Urine (UA) Normal (Normal); Ketones,Urine Negative (Negative); Leukocyte Esterase,Urine Negative (Negative); Nitrite,Urine Negative (Negative); PH,Urine 5.5 pH Units (5.0-8.0); Protein,Urine Negative (Neg-Trace); Specific Gravity,Urine > 1.030 (1.010-1.025); Urobilinogen,Urine Normal (Normal)
[2016-05-27 03:23] LABS: Amphetamine Screen,Urine Negative ng/mL (Cutoff=1000); Barbiturate Screen,Urine Negative ng/mL (Cutoff=200); Benzodiazepines Screen,Urine Positive ng/mL (Cutoff=200); Cannabinoid Screen,Urine Positive ng/mL (Cutoff = 50); Cocaine Screen,Urine Negative ng/mL (Cutoff= 300); Opiate Screen,Urine Positive ng/mL (Cutoff=300); Phencyclidine Screen,Urine Negative ng/mL (Cutoff=25)
[2016-05-27] MEDS: 0.9 % Sodium Chloride 1,000 ML IVC SCH ×2 (03:34→12:21)
[2016-05-27 06:12] LABS: Phosphorous 3.7 mg/dL (2.3-4.7)
[2016-05-27 06:46] LABS: INR 1.4; Prothrombin Time 15.7 Seconds (9.4-12.1)
[2016-05-27] MEDS ORDERED: Albumin 25% 25gram/100mL 25 GM/100 ML IV.SOLN ONE (07:02)
[2016-05-27] MEDS ORDERED: 0.9 % Sodium Chloride 500 ML IVC STA (07:08)
[2016-05-27] MEDS ORDERED: Potassium Phosphate 44 MEQ in 0.9 % Sodium Chloride 250 ML IVPB PRN (07:17)
[2016-05-27] MEDS ORDERED: Potassium Chloride 40 MEQ/200 ML BAG IVPB PRN (07:17)
[2016-05-27] MEDS ORDERED: Sodium Phosphate 30 MMOL in D5% in Water 100 ML IVPB PRN (07:17)
[2016-05-27 07:22] LABS: ABG Base Excess -9.9 mEq/L (-2.0 to 3.0); ABG HCO3 14.8 mEQ/L (21-27); ABG Oxygen Saturation 97 % (95-98); ABG PCO2 28 mmHg (35-45); ABG PH 7.33 pH Units (7.32-7.45); ABG PO2 92 mmHg (85-104); ABG TCO2 15.7 mEq/L (20-26)
[2016-05-27 07:23] LABS: Blood Gas FiO2 30 %
[2016-05-27 07:23] LABS: Hematocrit 34.3 % (37.5-50.1); Hemoglobin 11.9 g/dL (12.9-16.9); Mean Corpuscular HGB Conc 34.7 g/dL (31.6-35.5); Mean Corpuscular Hemoglobin 30.6 pg (28.0-33.3); Mean Corpuscular Volume 88.2 fL (83.0-100.0); Mean Platelet Volume 10.3 fL (9.4-12.4); Platelet Count 196 K/mcL (140-400); Red Blood Count 3.89 M/mcL (4.19-5.50); Red Cell Distribution Width 17.2 % (11.5-14.5)
[2016-05-27] MEDS ORDERED: *HR* Heparin 10,000 UNIT/10 ML VIAL ONE (07:28)
[2016-05-27] MEDS ORDERED: Heparin 1,000 UNITS/500 mL NS 500 ML ONE (07:28)
[2016-05-27] MEDS: Ipratropium/Albuterol Neb 3 ML IH SCH ×3 (07:33→23:27)
[2016-05-27 07:49] LABS: Hematocrit 31.7 % (37.5-50.1); Hemoglobin 10.7 g/dL (12.9-16.9); Mean Corpuscular HGB Conc 33.8 g/dL (31.6-35.5); Mean Corpuscular Hemoglobin 30.4 pg (28.0-33.3); Mean Corpuscular Volume 90.1 fL (83.0-100.0); Platelet Count 193 K/mcL (140-400); Red Blood Count 3.52 M/mcL (4.19-5.50); Red Cell Distribution Width 17.2 % (11.5-14.5)
[2016-05-27 07:54] LABS: INR 1.5; Prothrombin Time 16.2 Seconds (9.4-12.1)
[2016-05-27 07:59] LABS: Ionized Calcium 0.98 mmol/L (1.15-1.35)
[2016-05-27] MEDS: Magnesium Sulfate 2 GM in D5% in Water 100 ML IVPB PRN ×2 (08:00→17:39)
[2016-05-27 08:06] LABS: Alanine Aminotransferase 496 Units/L (0-55); Albumin/Globulin Ratio 1.3 (1.1-2.2); Alkaline Phosphatase 108 Units/L (38-126); Aspartate Amino Transferase 434 Units/L (5-34); BUN/Creatinine Ratio 20 (6-26); Blood Urea Nitrogen 22 mg/dL (8-26); Calcium 7.8 mg/dL (8.6-10.8); Carbon Dioxide 15 mEq/L (19-29); Chloride 110 mEq/L (98-109); Globulin 2.4 g/dL (2.4-3.5); Glucose 137 mg/dL (70-99); Magnesium 1.2 mg/dL (1.6-2.6); Osmolality,Calculated 295 (280-300); Phosphorous 4.8 mg/dL (2.3-4.7); Potassium 4.5 mEq/L (3.5-4.5); Sodium 140 mEq/L (136-145); Total Protein 5.6 g/dL (6.0-8.3); eGFR For African Americans > 60 (> 60); eGFR For Non-African Americans > 60 (> 60)
[2016-05-27 08:07] LABS: Albumin 3.2 g/dL (3.5-5.0); Bilirubin,Total 4.5 mg/dL (0.2-1.2)
[2016-05-27 08:09] LABS: Lymphocytes # 2.3 K/mcL (0.6-4.6); Monocytes # 1.9 K/mcL (0.0-1.3); Neutrophils # 19.2 K/mcL (1.6-8.9); Platelet Estimate Normal (Normal)
[2016-05-27 08:11] LABS: Anisocytosis 1+ (Not Present)
[2016-05-27 08:18] LABS: Lymphocytes # 0.9 K/mcL (0.6-4.6); Monocytes # 1.7 K/mcL (0.0-1.3); Neutrophils # 19.1 K/mcL (1.6-8.9); Platelet Estimate Normal (Normal)
[2016-05-27 08:19] LABS: Anisocytosis 1+ (Not Present)
--- NOTE | 2016-05-27 08:24 | Procedure Note ---
Date of procedure: 05/27/16 Pre-op diagnosis: Acute retroperitoneal hemorrhage Post-op diagnosis: same Procedure: 1. Abdominal aortogram. 2. Right lower extremity selective angiogram. 3. Placement of right external iliac artery 7 x 38mm Atrium covered stent. Anesthesia: local Surgeon: Joe Spain Estimated blood loss (cc): 5 Pathology: none sent Condition: stable (no complications) Disposition: ICU
--- NOTE | 2016-05-27 08:37 | Invasive Diagnostic Lab Proc ---
Name: Christian Cedeno Date of Study: 05/27/2016 Date: 1960 Ht: 178.0 in Medical Record#: [id number] Age: 56 Wt: 60 lb Gender: Male BSA: 1.75 Order #: [id number] BMI: 18.94 Physicians Performing MD: Joe Spain MD Referring MD: Referring MD: Staff Name Position Time In Jenna Carmen RT Scrub Radha Burnham RN Machine Zipper Trimmer Angie Solorio RT (R) Monitor Virginia Chase RN Machine Zipper Trimmer Indications Groin Hematoma Procedures Performed AORTOGRAPHY, ABDOMINAL S\\T\\I ILIAC REVASC W/STENT Add'l Complete exam Pre-Procedure Checklist Informed consent is complete signed and on chart. H\\T\\P is on chart. ID band is on and ID verified with patient. Patient NPO for procedure The procedure was described for the patient and questions were answered. Blood Pressure: 135/91 ECG is on chart. Rhythm: Sinus Tachycardia Plan of Care Patient will tolerate the procedure without complications. Adequate level of comfort will be maintained. Hemodynamics will remain stable Patient will recover from procedure without complications. Respiratory function will be maintained. Cardiac rhythm will remain stable. Patient temperature will be maintained. Patient and/or family have verbalized understanding of the procedure. Patient Education Chief Complaint/Reason for Test: Peripheral angiogram Developmental Category: Adult (18-64 years) Learning Barriers: None Education Needs: Procedure Education Method: Verbal Information Taught: Peripheral angiogram Educational Evaluation: Able to repeat information Intravenous Access Time IV Size Location DC'd Fluid/Drip Rate Units RN 07:55 18g 1 1/4" Patent On Arrival Rt Hand magnesium 50 ml/hr 07:55 18g 1 1/4" Patent On Arrival Rt Antecubital Blood 07:55 18g 1 1/4" Patent On Arrival Lt Arm 0.9NaCl 25 ml/hr Allergies Penicillins [place] Penicillin strawberries PCN Vital Signs Time BP Systolic BP Diastolic HR O2 Sats ASA 07:52 AM 135 91 100 98 07:58 AM 135 91 103 08:03 AM 135 85 92 92 08:08 AM 123 81 96 08:13 AM 147 85 92 08:18 AM 148 80 103 99 08:23 AM 146 82 91 99 Procedure Medications Time Medication Dose Units Method Route 07:51 AM Oxygen 8 L/min 07:58 AM Lidocaine 2% 4 ml Subcutaneous 08:14 AM Lidocaine 2% 10 ml Subcutaneous ASA Classification: CLASS II- Mild systemic disease (i.e. well-controlled diabetes, hypertension, asthma, cigarette smoking) Lexii Score Preprocedure Postprocedure Activity 2- Moves 4 extremities sustained head lift Activity 2- Moves 4 extremities sustained head lift Circulation 2- SBP +/= 20 points of pre-anesthetic level Circulation 2- SBP +/= 20 points of pre-anesthetic level Consciousness 2- Awake and alert oriented x 3 Consciousness 2- Awake and alert oriented x 3 O2 Saturation 1- Needs O2 inhalation to maintain O2 saturation of 90% O2 Saturation 1- Needs O2 inhalation to maintain O2 saturation of 90% Respiratory 1- Labored or limited respiration requires airway Respiratory 1- Labored or limited respiration requires airway Total Score 8 Total Score 8 Contrast: Isovue 250- 150ml Contrast Amount: 20 ml Fluoro Dose: 188 mGy Procedure Log Time Note Entered By 07:50 AM 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 Bilateral groin prepped with Chloraprep by Barbara Long RT (R) then patient draped. Skin intact. [email or web address] 07:51 AM Physician arrived 07:51 [email or web address] 07:51 AM Ash and radha completed [email or web address] 07:51 AM Sign in performed according to hospital policy. [email or web address] 07:51 AM Procedure start 07:51 [email or web address] 07:52 AM 07:51 Oxygen at 8 L/min per mechanical ventilator by [email or web address] 07:52 AM Time: 07:52 Is patient comfortable and pain free?: Yes [email or web address] 07:52 AM Time: 07:52LOC: 4 = Oriented but drowsy [email or web address] 07:57 AM Time out perfomed [email or web address] 07:58 AM 07:58 4 ml Lidocaine 2% to left groin Subcutaneous Given By Joe Spain MD [email or web address] 07:59 AM Access obtained in the left femoral artery by percutaneous puncture. 4 Fr. 10 cm Terumo [place] sheath placed in left femoral artery [email or web address] 07:59 AM 0.035 180cm Bentson wire utilized to assist with catheter placement [email or web address] 08:00 AM 4Fr Omniflush catheter inserted over the wire [email or web address] 08:01 AM Abdominal aorta angiography performed in 10 contrast injected 20 mls. [email or web address] 08:02 AM Catheter repositioned up and over to Rt iliac artery. [email or web address] 08:03 AM Right common femoralc angiography performed in AP contrast injected 4/10 mls. [email or web address] 08:05 AM Catheter removed [email or web address] 08:06 AM Sheath exchanged for a 7 Fr 45 cm Terumo Destination sheath inserted into left femoral artery [email or web address] 08:07 AM Critical lab result Lactic acid 6.6 [email or web address] 08:08 AM 4 mls of contrast injected into Rt PIZZA DRIVER. [email or web address] 08:09 AM Inflation device [email or web address] 08:10 AM 7 mm x 38 mm Atrium iCast covered stent placed in right external iliac Serial number- [id number] [email or web address] 08:11 AM Balloon inflated @ 8 bing for 15 seconds [email or web address] 08:12 AM Stent delivery system removed intact [email or web address] 08:12 AM Blood administration complete and no reactions noted. [email or web address] 08:12 AM 4 mls contrast injected into rt Iliac artery. [email or web address] 08:13 AM BP 123/81 NSR HR 92. [email or web address] 08:13 AM Procedure completed at 08:13 [email or web address] 08:14 AM Sign Out completed: Radiation Dose 187.84 mGy Fluoro Time: 2.9 minutes. Isovue 250- 150ml contrast 20 ml given by Joe Spain MD. Complications: None. Confirmed administered medications:Yes [email or web address] 08:14 AM 08:14 10 ml Lidocaine 2% to left groin Subcutaneous Given By Joe Spain MD [email or web address] 08:14 AM Arterial sheath pulled. [email or web address] Starclose closure device used and was Successful S/N. [email or web address] 08:15 AM Post Blood Pressure: 147/85 [email or web address] 08:15 AM Post EKG: NSR [email or web address] 08:15 AM Information taught: Peripheral angiogram and Starclose [email or web address] 08:15 AM Education needs: Procedure and Plan of Care [email or web address] 08:15 AM Learning barriers: None [email or web address] 08:15 AM Education methods: Verbal [email or web address] 08:15 AM Education evaluation: Able to repeat information [email or web address] 08:15 AM Delay to floor: No [email or web address] 08:15 AM Pt taken to ICU Room# 4 [email or web address] 08:15 AM Complications: None [email or web address] 08:16 AM Fluoro Time: 2.9 minutes [email or web address] 08:19 AM Manual pressure held to rt groin by Carmen West RTR [email or web address] 08:23 AM Site status No bleeding/hematoma - Lt Groin as reported by Carmen West RT at 08:23 [email or web address] 08:03 AM HR=92 bpm, CTYA=922/85 mmhg, SpO2=92.0 %, Resp=21 B/min, Comment=NSR 08:08 AM HR=96 bpm, CJSL=430/81 mmhg, Resp=24 B/min, Comment=NSR 08:10 AM Recorded ECG: HR=98 Condition=Condition 1 08:13 AM HR=92 bpm, UPBO=228/85 mmhg, Resp=25 B/min, Comment=NSR 08:18 AM ZV=212 bpm, BINA=037/80 mmhg, SpO2=99.0 %, Resp=24 B/min, Comment=NSR 08:23 AM HR=91 bpm, KAJF=907/82 mmhg, SpO2=99.0 %, Resp=24 B/min, Comment=NSR 07:47 AM NIBP STAT measurement started. 07:49 AM PVIStat 07:49 AM Recorded ECG: UE=749 Condition=Condition 1 07:49 AM Vitals capture stopped. 07:50 AM Vitals capture started with the following parameters, Patient=Adult, Interval=5 min, Initial Nrqjviga=197 mmHg, Deflation Rate=5 mmHg 07:50 AM Vitals capture stopped. 07:57 AM Vitals capture started with the following parameters, Patient=Adult, Interval=5 min, Initial Czbdoaeb=550 mmHg, Deflation Rate=5 mmHg 07:58 AM RK=969 bpm, XNVE=686/91 mmhg, Resp=30 B/min, Comment=ST 08:00 AM Recorded ECG: BF=745 Condition=Condition 1 08:23 AM Opsite applied [email or web address] 08:[address] Spain aware of critical lab result. [email or web address] 08:26 AM Report given to Dayanara ODELL. Pt taken to ICU, Room # 4 08:26 [email or web address] 08:28 AM Family placed not available. [email or web address] 08:29 AM Patient out of room 08:29 [email or web address] Post Procedure Information Blood Pressure: 147/85 mmHg Rhythm: NSR Site Checks Time Location Status Staff Sheath In? Note 8:23:00 AM Lt Carmen Elizabeth RT Pulses Time Site Pre Procedure Post Procedure Note 05/27/2016 7:57:00 AM Bilateral DP \\T\\ PT 1+ 1+ Updated by Angie Solorio, RT(R) on 05/27/2016 8:29:42 AM electronically signed on 05/27/2016 8:30:27 AM with status of Final
--- NOTE | 2016-05-27 08:53 | Invasive Diagnostic Lab ---
Name: Christian Cedeno Date of Study: 05/27/2016 Date: 1960 Ht: 178.0 in Medical Record#: [id number] Age: 56 Wt: 60 lb Gender: Male BSA: 1.75 Order #: [id number] Fluoro: 188 mGy BMI: 18.94 Procedure MD: Joe Spain MD Procedures Performed: AORTOGRAPHY, ABDOMINAL S\T\I ILIAC REVASC W/STENT Add'l Complete exam ANGIOGRAM, EXT UNILAT S\T\I Indications: Retroperitoneal hematoma Right external iliac artery laceration with active hemorrhage Impressions: The renal arteries are patent. The aorta is patent. The bilateral iliac and femoral arteries are patent. Acute arterial hemorrhage was identifed arising from the right extrenal iliac artery. Successful treatment of acute right external iliac artery hemorrhage with 7 x 38mm Atrium covered stent. No residual extravasation of contrast noted after stent placement. No complications. Recommendations: Bedrest today. Clopidogrel 75mg daily. History/ Risk Factors: Technique: The patient was identified in the preoperative area and taken to the catheterization lab. The patient was prepped and draped in the normal sterile fashion. After the timeout procedure was performed, local anesthetic was infused over the left groin. Under ultrasound guidance, the left common femoral artery was cannulated with a large bore needle. A Graymaticsson wire was advanced though the needle into the aorta under fluoroscopic view. The needle was exchanged for a 4 bolivian sheath and an omniflush catheter was advanced into the suprarenal aorta. The wire was removed and an abdominal aortogram was performed. The catheter was then withdrawn to the aortic bifurcation and the right common iliac artery was selected with a catheter and a wire was advanced into the right superficial femoral artery. The catheter was then advanced over the wire into the right external iliac artery and additional selective imaging was then performed to further evaluate the right iliac vessels. At this time it was noted that the patient had signficcant extravasation of contrast from the right extrenal iliac artery. The 4 bolivian sheath was exchanged over the wire for a long 7 bolivian sheath. The tip of the sheath was positioned in the right external iliac artery. An agiogram was then performed to identify the exact location of the hemorrhage. A 7 x 38mm Atrium covered stent was advanced over the wire and deployed across the area of hemorrhage. A completion angiogram revealed no evidence of contrast extravasation and patentcy of all [place] vessels. The sheath was then removed over a wire and a starclose device was deployed in the usual fashion to aid in hemostasis. Pressure was used to further aid in hemostasis with a V-Pad. A sterile bandage was applied and the patient was taken to the intensive care unit in stable condition. Vessel Findings: * Upper Extremity/Thoracic Arteries The Desc. thoracic aorta is angiographically free of disease. * Abdominal Arteries The Right internal iliac is angiographically free of disease. The Left internal iliac is angiographically free of disease. The Left external iliac is angiographically free of disease. The Celiac trunk is angiographically free of disease. The Left renal is angiographically free of disease. The Right renal is angiographically free of disease. The Abd. aorta infrarenal is angiographically free of disease. The Superior mesenteric is angiographically free of disease. The Inferior mesenteric is angiographically free of disease. The Right common iliac is angiographically free of disease. The Left common iliac is angiographically free of disease. * Lower Extremity Arteries The Right Femoral is angiographically free of disease. The Left Femoral is angiographically free of disease. There is acute hemorrhage present in the Right External Iliac. A covered stent was placed in the Right External Iliac. There were no complications in the vessel segment during the procedure. 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
[2016-05-27] MEDS: Albumin 25% 25gram/100mL 25 GM/100 ML IV.SOLN IVPB SCH ×4 (09:15→15:14)
[2016-05-27] MEDS: Nystatin SUSP 5 ML UD.LIQ PO SCH ×4 (09:15→20:24)
--- NOTE | 2016-05-27 09:51 | Event Note ---
Date of Encounter: 05/27/16 Time of Encounter: 20:00 Pt came back from candlemaking laborer after vascular procedure to stop the active bleeding. Saw pt bedside, still weak, c/o cold. Pt has tachypnea, SpO2 is 97% on 3L NC O2. BP is stable. Severe abd pain on right side. Pt's active bleeding has been stopped per vascular surgeon. He still has lactic acidosis and tachypnea, need close monitoring in ICU. Value Stream Manager consult was called and sign out to ICU attending.
--- NOTE | 2016-05-27 10:27 | Pulmonology Consult Note ---
<Justin Parker - Last Filed: 05/27/16 11:52> Date of Encounter: 05/27/16 Time of Encounter: 10:27 Assessment and Plan (1) Transaminitis Current Visit: Yes Status: Acute Patient presented to the ED with complaint of nausea, vomiting, generalized abdominal pain x1 day prior to admission. Patient denies history of liver disease, gallbladder disease, or taking large amounts of medications. Labs on admission revealed AST 1332, ALT 1173, Total bili 5.4, Direct bili 3.9, and Indirect bili 1.5. Acetaminophen level of 3.0, salicylate level <5.0, and Ethyl alcohol level <10. Labs today revealed AST 434, ALT 496, Total bili 4., Direct bili 3.0, and Indirect bili 1.5. CT abdomen pelvis reveals no liver abnormalities, small gallbladder polyp noted. Exam reveals a mildly cachectic, jaundiced, and scleral icteric individual. Suspect acute transaminitis as most likely cause of nausea and vomiting upon admission. Possibly secondary to acute viral infection vs ingestion of unknown hepatotoxic substance. GI consulted Continue to follow Liver enzymes Hepatitis profile ordered. (2) Sepsis Current Visit: Yes Status: Acute Patient developed fever, tachypnea, hypotension, and has had borderline tachycardia throughout the morning. Hospitalist suspected sepsis from unknown source last evening when patient returned from biological lab technician. Urine was negative, Influenza panel negative. Blood cultures ordered and received. CXR negative. CT abdomen/pelvis revealed large right hematoma, mild patchy airspace opacities in lung bases. WBC elevated at 21.7 from 14.6. Lactic acid 6.6 Review of current vitals is stable. Temp 97.6, pulse 76, Respiration 20, bp 133 /87, and 97% on 3L nasal cannula. Suspect sepsis-like presentation likely due to hemorrhagic shock due to retroperitoneal bleed complication of heart cath. Elevated WBC likely due to stress reaction in the absence of source of infection. Lactic acidosis likely due to decreased perfusion resulting from hemorrhagic shock. Infection cannot fully be ruled out at this time, workup is currently pending including hepatitis panel and blood cultures. Continue with levaquin and flagyl Continue following labs and vitals. Repeat CMP and lactic acid levels ordered. Qualifiers: Sepsis type: sepsis due to unspecified organism Qualified Code(s): A41.9 - Sepsis, unspecified organism (3) Retroperitoneal hematoma Current Visit: Yes Status: Acute Secondary to cath complication. Likely cause of hemorrhagic shock. Per Dr. Spain, covered stent placement this morning in right external iliac artery. Vitals have been stable. Continue to monitor serial Hb/Hct and monitor vitals. (4) Unstable angina Current Visit: Yes Status: Acute Chest pain present upon admission with ST elevations on V1 and V2 in ED and troponins 0.00. Patient underwent left heart cath which was unremarkable. Continue to follow cardio recommendations for management. (5) Hypertension Current Visit: Yes Status: Chronic Bp stable, vitals stable. Continue to monitor. Qualifiers: Hypertension type: essential hypertension Qualified Code(s): I10 - Essential (primary) hypertension (6) Tobacco abuse Current Visit: Yes Status: Chronic Nicotine patch ordered. (7) DVT prophylaxis Current Visit: Yes Status: Acute Continue per cardio recommendations. Plavix started, Heparin held. History of Present Illness Consult date: 05/27/16 Requesting physician: Pratibha Mancuso Reason for consult: other (hemorrhagic shock, acidosis) Chief complaint: Transaminitis, hemorrhagic shock, lactic acidosis History of present illness: Mr. Cedeno is a 56 year old male with history of COPD, htn, gerd, unexplained weight loss (12/2015 seen by oncology with negative workup including CT chest abd/pelvis and gallbladder us) and surgical history of appendectomy and hernia repair who presented to the ED yesterday with nausea and multiple episodes of yellow emesis in addition to 9/10 epigastric and mid- sternal chest pain with shortness of breath and productive cough. Patient reported the chest pain was constant and worse with exertion. Patient reports that he did not feel very well the evening before and went to bed at home. ED workup revealed possible STEMI with ST elevations in V1 and V2, troponin was 0.00. Patient was taken to biological lab technician and left heart cath was unremarkable. Upon return to the floor the patient was febrile and tachypneic. Hospitalist suspected sepsis from possible abdominal source and started patient on levaquin and flagyl. On exam, patient had scleral icterus and global jaundice. Labs on admission revealed AST 1332, ALT 1173, Total bili 5.4, Direct bili 3., and Indirect bili 1.5. Toxicology revealed <5.0 salicylates, acetaminophen 3.0, and ethyl alcohol <10. Complete abdominal ultrasound revealed 0.35cm gallbladder polyp or non-shadowing gallstone without evidence of cholecystitis, liver with normal echogenicity without ductal dilation, kidneys without hydronephrosis, and unremarkable spleen. CT abdomen/pelvis revealed large right hematoma with evidence of active extravasation arising from the right external iliac/femoral artery extending both retroperitoneal and intraperitoneal. Critical results were called 21:12pm to night hospitalist. Overnight rapid response was called on patient due to declining mental status, drop in bp, tachycardia, tachypnea, oozing around catheter site area. 2 Units pRBC, 2 Units FFP, vit K, fluids, and dopamine drip was ordered. Patient was transferred to the ICU this morning. Dr. Spain reviewed the case and performed an adominal aortoram, right lower extremity angiogram, and placed a covered right external iliac artery stent. Critical care was consulted for hemorrhagic shock, sepsis, and transaminitis. Patient currently conversing and reports he is doing better. Denies current fevers, chills, sweats, headache, dizziness, lightheadedness, chest pain, shortness of breath, dysuria, weakness, or loss of sensation. Patient does report RLQ abdominal pain and groin pain. Past Med Surg Social Fam HX - Past Medical History Medical history: COPD, GERD, hypertension, other Psychiatric history: no psych history - Past Surgical History Surgical History: appendectomy, herniorrhaphy, orthopedic, other - Social History Smoking Status: Current every day smoker Smokeless Tobacco Status: No Alcohol use: none Drug use: none - Family History Father History Unknown: Yes Mother Hx Family Cardiac Disorders: Yes (diabetes) Medications and Allergies BuPROPion XL (24 HR) [Wellbutrin XL] 150 mg PO DAILY 12/31/15 [History] Cyclobenzaprine HCl 10 mg PO HS 12/31/15 [History] Gabapentin [Neurontin] 1 - 2 cap PO BID 12/31/15 [History] Lisinopril-HCTZ 10-12.5 [Prinzide 10-12.5] 1 tab PO DAILY 12/31/15 [History] Omeprazole [PriLOSEC] 40 mg PO DAILY 12/31/15 [History] Tiotropium [Spiriva] 18 mcg IH DAILY 12/31/15 [History] Etodolac [Lodine] 400 mg PO BID 05/26/16 [History] Finasteride [Proscar] 5 mg PO DAILY 05/26/16 [History] Tamsulosin HCl [Flomax] 0.4 mg PO DAILY 05/26/16 [History] Allergies Penicillins [PCN] Allergy (Verified 05/26/16 14:35) Hives [place] Adverse Reaction (Verified 05/26/16 14:35) Anaphylaxis All Systems: A 10-system review of systems was performed and is negative for pertinent findings except as documented above in the HPI. - Constitutional Constitutional: as per HPI, weight loss, no chills, no fatigue, no fever(s), no headache(s), no weakness - EENT Eyes: as per HPI Ears: as per HPI Nose, mouth and throat: as per HPI, no dysphagia, no headache(s), no neck pain - Cardiovascular Cardiovascular: as per HPI, chest pain, chest pain with activity, dyspnea, dyspnea on exertion, no edema, no lightheadedness, no palpitations - Respiratory Respiratory: as per HPI, cough, dyspnea, dyspnea on exertion, no wheezing - Gastrointestinal Gastrointestinal: as per HPI, abdominal pain, nausea, vomiting, no diarrhea, no hematemesis - Genitourinary Genitourinary: as per HPI, no dysuria, no flank pain, no hematuria - Musculoskeletal Musculoskeletal: joint pain, as per HPI - Integumentary Integumentary: as per HPI, no erythema, no rash - Neurological Neurological: as per HPI, no confusion, no headache(s), no weakness Physical Examination Vital Signs: Vital Signs, Last 4 Hours Temp Pulse Resp BP Pulse Ox 05/27/16 10:10 76 20 96 05/27/16 09:56 97.7 F 95 22 126/82 97 05/27/16 09:55 97.7 F 77 20 134/88 97 05/27/16 09:41 97.6 F 95 22 126/82 97 05/27/16 09:40 80 22 126/82 97 05/27/16 09:25 82 20 121/87 97 05/27/16 09:10 82 20 112/82 97 05/27/16 09:00 99 22 120/84 96 05/27/16 08:50 100 22 125/81 96 05/27/16 08:40 97.2 F L 102 22 124/89 99 05/27/16 08:11 91 146/82 05/27/16 07:52 97.4 F L 102 22 105/66 98 05/27/16 07:20 97.4 F L 105 34 86/77 05/27/16 07:00 116 29 129/51 90 L 05/27/16 06:45 112 38 86/69 98 Results - Laboratory Findings CBC and BMP: 05/27/16 07:40 05/27/16 07:40 ABG ABG pH 7.33 pH Units (7.32-7.45) 05/27/16 07:15 ABG pCO2 28 mmHg (35-45) L 05/27/16 07:15 ABG pO2 92 mmHg (85-104) 05/27/16 07:15 ABG O2 Saturation 97 % (95-98) 05/27/16 07:15 PT/INR, D-dimer PT 16.2 Seconds (9.4-12.1) H 05/27/16 07:40 D-Dimer 537 ng/mLFEU (0-500) H 05/26/16 14:19 Abnormal lab findings: Abnormal lab results WBC 21.7 K/mcL (4.3-11.1) H 05/27/16 07:40 RBC 3.52 M/mcL (4.19-5.50) L 05/27/16 07:40 Hgb 10.7 g/dL (12.9-16.9) L 05/27/16 07:40 Hct 31.7 % (37.5-50.1) L 05/27/16 07:40 RDW 17.2 % (11.5-14.5) H 05/27/16 07:40 Band Neutrophils % 6.0 % (0-4) H 05/27/16 07:40 Neutrophils # 19.1 K/mcL (1.6-8.9) H 05/27/16 07:40 Monocytes # 1.7 K/mcL (0.0-1.3) H 05/27/16 07:40 Anisocytosis 1+ (Not Present) A 05/27/16 07:40 PT 16.2 Seconds (9.4-12.1) H 05/27/16 07:40 D-Dimer 537 ng/mLFEU (0-500) H 05/26/16 14:19 ABG pCO2 28 mmHg (35-45) L 05/27/16 07:15 ABG HCO3 14.8 mEQ/L (21-27) L 05/27/16 07:15 ABG Total CO2 15.7 mEq/L (20-26) L 05/27/16 07:15 ABG Base Excess -9.9 mEq/L (-2.0 to 3.0) L 05/27/16 07:15 Chloride 110 mEq/L (98-109) H 05/27/16 07:40 Carbon Dioxide 15 mEq/L (19-29) L 05/27/16 07:40 Glucose 137 mg/dL (70-99) H 05/27/16 07:40 POC Glucose 146 (58-89) H 05/27/16 08:40 Lactic Acid 6.6 mmol/L (0.5-2.2) H* 05/27/16 07:40 Calcium 7.8 mg/dL (8.6-10.8) L 05/27/16 07:40 Ionized Calcium 0.98 mmol/L (1.15-1.35) L 05/27/16 07:40 Phosphorus 4.8 mg/dL (2.3-4.7) H 05/27/16 07:40 Magnesium 1.2 mg/dL (1.6-2.6) L 05/27/16 07:40 Total Bilirubin 4.5 mg/dL (0.2-1.2) H 05/27/16 07:40 Direct Bilirubin 3.0 mg/dL (0.0-0.5) H 05/27/16 00:08 Indirect Bilirubin 1.5 mg/dL (0.0-1.2) H 05/27/16 00:08 AST 434 Units/L (5-34) H 05/27/16 07:40 ALT 496 Units/L (0-55) H 05/27/16 07:40 Serum Total Protein 5.6 g/dL (6.0-8.3) L 05/27/16 07:40 Albumin 3.2 g/dL (3.5-5.0) L D 05/27/16 07:40 Ur Specific [place] > 1.030 (1.010-1.025) H 05/27/16 02:55 Urine Bilirubin Small (Negative) H 05/27/16 02:55 Salicylates < 5.0 mg/dL (15-30) L 05/26/16 21:18 Urine Opiates Screen Positive ng/mL (Czschp=304) H 05/27/16 02:55 Acetaminophen 3.0 mcg/mL (10-30) L 05/26/16 21:18 U Benzodiazepines Scrn Positive ng/mL (Mminqc=934) H 05/27/16 02:55 U Marijuana (THC) Screen Positive ng/mL (Cutoff = 50) H 05/27/16 02:55 - Clinical Findings Intake & Output: Intake & Output 05/26/16 05/27/16 05/27/16 23:59 07:59 15:59 Intake Total 6913 / 6913 1454 / 1454 Output Total 325 / 625 475 / 475 Balance -325 / -625 6438 / 6438 1454 / 1454 Weight 59.9 kg Consult Discharge Plan - Plan Referrals: Dara Perry MD [Primary Care Provider] - <Aayush Almanzar - Last Filed: 05/27/16 12:58> All Systems: A 10-system review of systems was performed and is negative for pertinent findings except as documented above in the HPI. Physical Examination Vital Signs: Vital Signs, Last 4 Hours Temp Pulse Resp BP Pulse Ox 05/27/16 12:26 97.6 F 05/27/16 12:04 97.7 F 78 20 127/88 97 05/27/16 12:00 97.6 F 79 20 127/88 96 05/27/16 11:10 97.6 F 76 20 133/87 97 05/27/16 11:00 97.6 F 86 18 133/87 96 05/27/16 10:40 72 20 132/81 96 05/27/16 10:10 76 20 96 05/27/16 10:00 77 20 134/88 97 05/27/16 09:56 97.7 F 95 22 126/82 97 05/27/16 09:55 97.7 F 77 20 134/88 97 05/27/16 09:41 97.6 F 95 22 126/82 97 05/27/16 09:40 80 22 126/82 97 05/27/16 09:25 82 20 121/87 97 05/27/16 09:10 82 20 112/82 97 05/27/16 09:00 99 22 120/84 96 05/27/16 08:50 100 22 125/81 96 Results - Laboratory Findings CBC and BMP: 05/27/16 07:40 05/27/16 07:40 ABG ABG pH 7.33 pH Units (7.32-7.45) 05/27/16 07:15 ABG pCO2 28 mmHg (35-45) L 05/27/16 07:15 ABG pO2 92 mmHg (85-104) 05/27/16 07:15 ABG O2 Saturation 97 % (95-98) 05/27/16 07:15 PT/INR, D-dimer PT 16.2 Seconds (9.4-12.1) H 05/27/16 07:40 D-Dimer 537 ng/mLFEU (0-500) H 05/26/16 14:19 Abnormal lab findings: Abnormal lab results WBC 21.7 K/mcL (4.3-11.1) H 05/27/16 07:40 RBC 3.52 M/mcL (4.19-5.50) L 05/27/16 07:40 Hgb 10.7 g/dL (12.9-16.9) L 05/27/16 07:40 Hct 31.7 % (37.5-50.1) L 05/27/16 07:40 RDW 17.2 % (11.5-14.5) H 05/27/16 07:40 Band Neutrophils % 6.0 % (0-4) H 05/27/16 07:40 Neutrophils # 19.1 K/mcL (1.6-8.9) H 05/27/16 07:40 Monocytes # 1.7 K/mcL (0.0-1.3) H 05/27/16 07:40 Anisocytosis 1+ (Not Present) A 05/27/16 07:40 PT 16.2 Seconds (9.4-12.1) H 05/27/16 07:40 D-Dimer 537 ng/mLFEU (0-500) H 05/26/16 14:19 ABG pCO2 28 mmHg (35-45) L 05/27/16 07:15 ABG HCO3 14.8 mEQ/L (21-27) L 05/27/16 07:15 ABG Total CO2 15.7 mEq/L (20-26) L 05/27/16 07:15 ABG Base Excess -9.9 mEq/L (-2.0 to 3.0) L 05/27/16 07:15 Chloride 110 mEq/L (98-109) H 05/27/16 07:40 Carbon Dioxide 15 mEq/L (19-29) L 05/27/16 07:40 Glucose 137 mg/dL (70-99) H 05/27/16 07:40 POC Glucose 160 (58-89) H 05/27/16 11:14 Lactic Acid 6.6 mmol/L (0.5-2.2) H* 05/27/16 07:40 Calcium 7.8 mg/dL (8.6-10.8) L 05/27/16 07:40 Ionized Calcium 0.98 mmol/L (1.15-1.35) L 05/27/16 07:40 Phosphorus 4.8 mg/dL (2.3-4.7) H 05/27/16 07:40 Magnesium 1.2 mg/dL (1.6-2.6) L 05/27/16 07:40 Total Bilirubin 4.5 mg/dL (0.2-1.2) H 05/27/16 07:40 Direct Bilirubin 3.0 mg/dL (0.0-0.5) H 05/27/16 00:08 Indirect Bilirubin 1.5 mg/dL (0.0-1.2) H 05/27/16 00:08 AST 434 Units/L (5-34) H 05/27/16 07:40 ALT 496 Units/L (0-55) H 05/27/16 07:40 Troponin I 0.04 ng/mL (0-0.03) H* 05/27/16 11:45 Serum Total Protein 5.6 g/dL (6.0-8.3) L 05/27/16 07:40 Albumin 3.2 g/dL (3.5-5.0) L D 05/27/16 07:40 Ur Specific [place] > 1.030 (1.010-1.025) H 05/27/16 02:55 Urine Bilirubin Small (Negative) H 05/27/16 02:55 Salicylates < 5.0 mg/dL (15-30) L 05/26/16 21:18 Urine Opiates Screen Positive ng/mL (Excpau=940) H 05/27/16 02:55 Acetaminophen 3.0 mcg/mL (10-30) L 05/26/16 21:18 U Benzodiazepines Scrn Positive ng/mL (Sswvgo=299) H 05/27/16 02:55 U Marijuana (THC) Screen Positive ng/mL (Cutoff = 50) H 05/27/16 02:55 - Clinical Findings Intake & Output: Intake & Output 05/26/16 05/27/16 05/27/16 23:59 07:59 15:59 Intake Total 6913 / 6913 2027 Output Total 325 / 625 475 / 475 400 / 400 Balance -325 / -625 6438 / 6438 1628 / 1628 Weight 59.9 kg - Attending Attestation I examined this patient and my medical decision-making was reviewed with the TECH ED/WOODSHOP TEACHER/PA/Advanced Practice Nurse/Resident Physician. I agree with the documented findings, disposition and treatment plan as described except to the extent set forth below. Patient seen and examined at bedside Labs, radiology, chart personally reviewed. Neuropsych: Awake and alert no distress. Pulm: Acute respiratory failure s/t volume overload possibly complicated by PNA. No evidence of TRALI/ARDS. Cont supplemental O2. Strict monitoring of volume status. NIPPV if needed. Cont ABx. Wean Fio2 to keep sats 92-94% Cards: Concern for UA s/p LHC complicated by RP bleeding s/p iliac stent placement by Vasc Surgery. Shock overnight likely s/t hemorrhage now resolved and off pressor. Trend lactate expect lag in clearance with acute liver injury FEN-GI: Acute transaminitis in a direct liver injury pattern of unclear etiology (imaging iwthout clear cause). Viral Panel Pending. APAP level WNL but concern for chronic ingestion of large amounts of APAP (no other ingestions suggested from history taking or lab values). Currently Transmaninatis are half of previous days values with no signficant RUQ pain. In this situation use of NAC as antidote of very limited utility. GI consult pending. Overall picture likely worsened by chronic weight loss/malnutrition Renal: Stable kindey function monitor UOP. ID: Severe sepsis ?CAP vs intraabdominal source. cont Levaquin and Flagyl Heme/Onc: Mechanical SCDs at this time given concern for hemorrhage Endo: Glucose monitored Integ/MSK: No evidence of skin break down cont IMPORT/EXPORT CLERK protocol to prevent ulcers CODE: Full family including updated at bedside.
[2016-05-27] MEDS: Calcium Gluconate 1,000 MG in D5% in Water 100 ML IVPB PRN ×2 (10:39→17:39)
--- NOTE | 2016-05-27 11:06 | Cardiology Progress Note ---
Date of Encounter: 05/27/16 Time of Encounter: 10:30 Assessment and Plan (1) Retroperitoneal hematoma Current Visit: Yes Status: Acute Mgmt per Vascular surgery--Dr. Spain following. CT demonstrated RP bleed; s/p multiple PRBC infusions. s/p successful treatment of acute right external iliac artery hemorrhage with covered stent (Atrium 7x38 mm) per Dr. Spain--started on Plavix 75 mg daily. Hemodynamically stable, not on pressors upon exam. (2) Chest pain Current Visit: Yes Status: Acute ECG upon presentation demonstrated ST elevation in V1, V2, 1, and avL--similar to previous ECG however noted to be more pronounced. He was taken urgently to the clinical laboratory manager; LHC demonstrated angiographically normal coronary arteries, EF 60%. Unfortunately developed RP bleed late last night with subsequent placement of covered stent to external iliac artery hemorrhage per Dr. Spain. No further inpt. Cardiology recommendations. Qualifiers: Chest pain type: precordial pain Qualified Code(s): R07.2 - Precordial pain (3) Transaminitis Current Visit: Yes Status: Acute Initial presentation nausea and vomiting. Markedly elevated AST/ALT upon presentation; improved this AM. Appears jaundiced upon exam. Critical care following. Discussion w patient/family: The assessment and plan as outlined above was discussed with the patient and/or family members who expressed understanding and agreement. All questions were answered. Thank you for involving us in the care of your patient. Please call with any questions. The patient will be discussed and reviewed with Dr. Lloyd Bains; changes to be made accordingly. Subjective Principal diagnosis: Chest pain; n/v; RP bleed Interval history: Seen and examined. Lying supine s/p covered stent placement this AM. Off pressors--hemodynamically stable. Alert and oriented x3. Objective Vital Signs, Last 4 Hours Temp Pulse Resp BP Pulse Ox 05/27/16 10:40 72 20 132/81 96 05/27/16 10:10 76 20 96 05/27/16 10:00 77 20 134/88 97 05/27/16 09:56 97.7 F 95 22 126/82 97 05/27/16 09:55 97.7 F 77 20 134/88 97 05/27/16 09:41 97.6 F 95 22 126/82 97 05/27/16 09:40 80 22 126/82 97 05/27/16 09:25 82 20 121/87 97 05/27/16 09:10 82 20 112/82 97 05/27/16 09:00 99 22 120/84 96 05/27/16 08:50 100 22 125/81 96 05/27/16 08:40 97.2 F L 102 22 124/89 99 05/27/16 08:11 91 146/82 05/27/16 07:52 97.4 F L 102 22 105/66 98 05/27/16 07:20 97.4 F L 105 34 86/77 General: Conversant, Other (jaunice appearing) HEENT: Atraumatic, Normocephaly Cardiac: Reg Rate and Rhythm, Normal S1 and S2 Lungs: Normal Breath Sounds (anterior only) Neuro: Alert and responsive Abdomen: Soft Extremities: No Edema, Other (R PT/DP +2; L PT/DP +1) Other: R groin cath site 05/26/16: open to air, mild amount of bruising at site, no oozing. L groin cath site 05/27/16: dressing C/D/I Results 05/27/16 07:40 05/27/16 07:40 Lab Results 05/27/16 05/27/16 05/27/16 00:08 00:08 00:08 WBC 24.2 H D Hgb 10.7 L D Hct 29.7 L Plt Count 312 INR 1.8 Sodium 137 Potassium 4.1 Chloride 107 Carbon Dioxide 18 L BUN 19 Creatinine 1.06 Glucose 126 H Calcium 8.1 L D Magnesium 1.0 L Total Bilirubin 4.5 H AST 737 H ALT 764 H Alkaline Phosphatase 150 H Troponin I 05/27/16 05/27/16 05/27/16 00:08 05:49 05:49 WBC Hgb Hct Plt Count INR 1.4 Sodium 137 Potassium 4.2 Chloride 107 Carbon Dioxide 16 L BUN 19 Creatinine 1.06 Glucose 125 H Calcium 8.0 L Magnesium 1.0 L Total Bilirubin 4.5 H AST 739 H ALT 763 H Alkaline Phosphatase 151 H Troponin I 05/27/16 05/27/16 05/27/16 05:49 06:49 07:40 WBC 23.4 H 21.7 H Hgb 11.9 L 10.7 L Hct 34.3 L 31.7 L Plt Count 196 193 INR Sodium Potassium Chloride Carbon Dioxide BUN Creatinine Glucose Calcium Magnesium Total Bilirubin AST ALT Alkaline Phosphatase Troponin I 0.03 05/27/16 05/27/16 07:40 07:40 WBC Hgb Hct Plt Count INR 1.5 Sodium 140 Potassium 4.5 Chloride 110 H Carbon Dioxide 15 L BUN 22 Creatinine 1.09 Glucose 137 H Calcium 7.8 L Magnesium 1.2 L Total Bilirubin 4.5 H AST 434 H ALT 496 H Alkaline Phosphatase 108 Troponin I - Imaging and Cardiology Chest Xray: report reviewed Cardiac cath: report reviewed Other Results: Telemetry review: avg HR=89 SR. Occasional PVC. - EKG Interpretation EKG results cardiology: personally reviewed Consult Discharge Plan - Plan Referrals: Dara Perry MD [Primary Care Provider] -
--- NOTE | 2016-05-27 11:33 | Gastroenterology Consult Note ---
<Jai David Christina - Last Filed: 05/27/16 11:31> Date of Encounter: 05/27/16 Time of Encounter: 10:50 - Assessment and plan (1) Nausea and vomiting Current Visit: Yes Status: Acute Assessment and plan: Improved. Continue antiemetics. Qualifiers: Vomiting type: unspecified Vomiting Intractability: non-intractable Qualified Code(s): R11.2 - Nausea with vomiting, unspecified (2) Retroperitoneal hematoma Current Visit: Yes Status: Acute Assessment and plan: He had a covered stent placed in right external iliac artery today. (3) Sepsis Current Visit: Yes Status: Acute Assessment and plan: Management per primary team Qualifiers: Sepsis type: sepsis due to unspecified organism Qualified Code(s): A41.9 - Sepsis, unspecified organism (4) Transaminitis Current Visit: Yes Status: Acute Assessment and plan: Concern for cholangitis with elevated WBC and transaminitis. On admission labs revealed TB 5.4, DB 3.9, AST 1332, and ALT 1173. Today labs are improved TB 4.5 , DB 3, AST 434, ALT 496. Complete MRCP today if newly placed stent compatible with MRI. (5) Unstable angina Current Visit: Yes Status: Acute Assessment and plan: Management per Cardiology. - Time Spent With Patient Total time spent is greater than 50% in coordination of care (as documented) at patient's floor/unit and/or counseling patient: GI History of Present Illness - Data of Consult Patient: new to practice Consult date: 05/27/16 Requesting Physician: Pratibha Mancuso MD - Consult Narrative Reason for consult: Transaminitis History of present illness: Mr. Cedeno is a 56 year old male with PMHx of GERD, COPD, HTN who presented to the ED with SOB, chest pain, nausea, vomiting, and abdominal pain. 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 He became febrile and tachycardic. Abdominal US showed 0.35cm gallbladder polyn or non-shadowing gall stone without evidence of cholecystitis, liver with normal echogenicity without ductal dilation, kidneys without hydronephrosis, and unremarkable spleen. CT demonstrated retroperitoneal bleed. He had a covered stent placed in right external iliac artery today. On admission labs revealed TB 5.4, DB 3.9, AST 1332, and ALT 1173. Procedures: EGD 06/27/[address] Nix: Chronic gastritis and medium-sized hiatal hernia. NSAIDs: None Anticoagulation: None Past Med Surg Social Fam HX - Past Medical History Medical history: COPD, GERD, hypertension, other Psychiatric history: no psych history - Past Surgical History Surgical History: appendectomy, herniorrhaphy, orthopedic, other - Social History Smoking Status: Current every day smoker Smokeless Tobacco Status: No Alcohol use: none Drug use: none - Family History Father History Unknown: Yes Mother Hx Family Cardiac Disorders: Yes (diabetes) - Gastrointestinal Gastrointestinal: Present: as per HPI - Constitutional Constitutional: as per HPI - EENT Eyes: as per HPI Ears: Present: as per HPI Nose, mouth and throat: Present: as per HPI - Cardiovascular Cardiovascular ROS: Present: as per HPI - Respiratory Respiratory IM: Present: as per HPI - Genitourinary Genitourinary: Absent: change in color, Urinary frequency - Neurological ROS Neurological GI: Present: as per HPI - Hematologic/Lymphatic Hematologic/Lymphatic pediatric: Present: as per HPI - Musculoskeletal Musculoskeletal ROS GI: Present: as per HPI - Integumentary Integumentary GI: Present: as per HPI - Psychiatric ROS Psychiatric GI: Present: as per HPI - Endocrine Endocrine IM: Present: as per HPI - Constitutional Vitals: Temp Pulse Resp BP Pulse Ox 97.7 F 72 20 132/81 96 05/27/16 09:56 05/27/16 10:40 05/27/16 10:40 05/27/16 10:40 05/27/16 10:40 General appearance: Present: cooperative, A&O X 3, no acute distress, answers questions appropriately - Head Head exam: Present: atraumatic, normocephalic - Eye Eye exam: Present: scleral icterus - ENT ENT exam: Present: mucous membranes dry - Neck Neck exam general surgery: Present: normal inspection, trachea midline - Respiratory Respiratory exam: Present: CTAB. Absent: rales, rhonchi - Cardiovascular Cardiovascular exam: Present: RRR, +S1, +S2 - GI/Abdominal GI/Abdominal exam: Present: soft, no peritoneal signs. Absent: distended, firm , guarding, tenderness - Rectal Rectal exam: Present: deferred - Extremities Exam Extremities exam: Present: warm - Neurological Exam Neurological exam: Present: no focal deficits - Psychiatric Psychiatric exam: Present: normal affect, normal mood - Skin Skin exam: Present: dry, intact, warm Additional comments: Jaundiced Results - Labs CBC & Chem 7: 05/27/16 07:40 05/27/16 07:40 Labs: Last Result Calcium 7.8 mg/dL (8.6-10.8) L 05/27/16 07:40 Troponin I 0.03 ng/mL (0-0.03) 05/27/16 05:49 Salicylates < 5.0 mg/dL (15-30) L 05/26/16 21:18 Urine Opiates Screen Positive ng/mL (Qrtamh=326) H 05/27/16 02:55 Entire Visit Hgb 10.7 g/dL (12.9-16.9) L 05/27/16 07:40 Hct 31.7 % (37.5-50.1) L 05/27/16 07:40 PT 16.2 Seconds (9.4-12.1) H 05/27/16 07:40 Total Bilirubin 4.5 mg/dL (0.2-1.2) H 05/27/16 07:40 AST 434 Units/L (5-34) H 05/27/16 07:40 ALT 496 Units/L (0-55) H 05/27/16 07:40 Lipase 13 Units/L (8-78) 05/26/16 14:19 Acetaminophen 3.0 mcg/mL (10-30) L 05/26/16 21:18 - ABG ABG results: ABG ABG pH 7.33 pH Units (7.32-7.45) 05/27/16 07:15 ABG pCO2 28 mmHg (35-45) L 05/27/16 07:15 ABG pO2 92 mmHg (85-104) 05/27/16 07:15 ABG O2 Saturation 97 % (95-98) 05/27/16 07:15 PT/INR, D-dimer PT 16.2 Seconds (9.4-12.1) H 05/27/16 07:40 D-Dimer 537 ng/mLFEU (0-500) H 05/26/16 14:19 - Impressions Impressions Chest X-Ray 05/27/16 04:00 IMPRESSION: Negative portable chest. D/ / Román Perez MD / Román Perez MD Interpreting Provider: Román Perez MD Consult Discharge Plan - Plan Referrals: Dara Perry MD [Primary Care Provider] - <Qasim Augustine - Last Filed: 05/27/16 17:58> Time of Encounter: 15:00 - Time Spent With Patient Total time spent is greater than 50% in coordination of care (as documented) at patient's floor/unit and/or counseling patient: GI History of Present Illness - Data of Consult Requesting Physician: Pratibha Mancuso MD - Consult Narrative History of present illness: Mr. Cedeno is a 56 year old male - Constitutional Vitals: Temp Pulse Resp BP Pulse Ox 98.2 F 96 20 126/83 93 L 05/27/16 15:26 05/27/16 17:00 05/27/16 17:00 05/27/16 17:00 05/27/16 17:00 Results - Labs CBC & Chem 7: 05/27/16 16:17 05/27/16 13:06 Labs: Last Result Calcium 8.4 mg/dL (8.6-10.8) L 05/27/16 13:06 Troponin I 0.04 ng/mL (0-0.03) H* 05/27/16 11:45 Salicylates < 5.0 mg/dL (15-30) L 05/26/16 21:18 Urine Opiates Screen Positive ng/mL (Cnweez=278) H 05/27/16 02:55 Entire Visit Hgb 7.3 g/dL (12.9-16.9) L 05/27/16 16:17 Hct 20.2 % (37.5-50.1) L 05/27/16 16:17 PT 16.0 Seconds (9.4-12.1) H 05/27/16 16:17 Total Bilirubin 3.9 mg/dL (0.2-1.2) H 05/27/16 13:06 AST 309 Units/L (5-34) H 05/27/16 13:06 ALT 346 Units/L (0-55) H 05/27/16 13:06 Lipase 13 Units/L (8-78) 05/26/16 14:19 Acetaminophen < 1.0 mcg/mL (10-30) L 05/27/16 11:45 - ABG ABG results: ABG ABG pH 7.33 pH Units (7.32-7.45) 05/27/16 07:15 ABG pCO2 28 mmHg (35-45) L 05/27/16 07:15 ABG pO2 92 mmHg (85-104) 05/27/16 07:15 ABG O2 Saturation 97 % (95-98) 05/27/16 07:15 PT/INR, D-dimer PT 16.0 Seconds (9.4-12.1) H 05/27/16 16:17 D-Dimer 537 ng/mLFEU (0-500) H 05/26/16 14:19 - Impressions Impressions Chest X-Ray 05/27/16 04:00 IMPRESSION: Negative portable chest. D/ / Román Perez MD / Román Perez MD Interpreting Provider: Román Perez MD Retroperitoneum Ultrasound 05/27/16 14:00 IMPRESSION: Minimal right-sided hydronephrosis. There is a small amount fluid within the hepatorenal recess which may be related to the patient's known hematoma. D/ / Radha Cassidy MD / Radha Cassidy MD Interpreting Provider: Radha Cassidy MD - Attending Attestation I examined this patient and my medical decision-making was reviewed with the ADMINISTRATIVE SERVICES MANAGER/PA/Advanced Practice Nurse/Resident Physician. I agree with the documented findings, disposition and treatment plan as described except to the extent set forth below. abnormal LFTs. As has a positive urine tox for marijuana and positive hepatitis B surface antigen. Rest of hepatitis B labs are pending. As patient on admission did had several onset of abdominal pain and also he had a high white count I will do an MRCP to make sure he does not have any CBD stone that could be causing obstruction with cholangitis.
[2016-05-27] MEDS: *HR* Heparin 5,000 UNIT/ML VIAL SQ SCH (12:18)
[2016-05-27] MEDS: Vasopressin 40 UNIT in D5% in Water 100 ML IV SCH (12:21)
[2016-05-27] MEDS: Nicotine 14 MG PATCH.TD24 TD SCH (12:44)
[2016-05-27 13:00] LABS: Hepatitis B Surface Antigen Reactive (Nonreactive)
[2016-05-27 13:25] LABS: Hematocrit 22.1 % (37.5-50.1)
[2016-05-27 13:27] LABS: Hemoglobin 7.7 g/dL (12.9-16.9)
[2016-05-27 13:40] LABS: Alanine Aminotransferase 346 Units/L (0-55); Albumin/Globulin Ratio 2.1 (1.1-2.2); Alkaline Phosphatase 74 Units/L (38-126); Aspartate Amino Transferase 309 Units/L (5-34); BUN/Creatinine Ratio 23 (6-26); Bilirubin,Total 3.9 mg/dL (0.2-1.2); Blood Urea Nitrogen 28 mg/dL (8-26); Calcium 8.4 mg/dL (8.6-10.8); Carbon Dioxide 20 mEq/L (19-29); Chloride 107 mEq/L (98-109); Globulin 1.9 g/dL (2.4-3.5); Glucose 123 mg/dL (70-99); Osmolality,Calculated 293 (280-300); Potassium 3.9 mEq/L (3.5-4.5); Sodium 138 mEq/L (136-145); Total Protein 5.9 g/dL (6.0-8.3); eGFR For African Americans > 60 (> 60); eGFR For Non-African Americans > 60 (> 60)
--- NOTE | 2016-05-27 13:47 | Invasive Diagnostic Lab Proc ---
Name: Christian Cedeno Date of Study: 05/26/2016 Date: 1960 Ht: 70.1in Medical Record#: [id number] Age: 56 Wt: 134.99lb Gender: Male BSA: 1.77 Order #: [id number] BMI: 19.33 Physicians Procedure Physician: Gilles Kessler MD Referring MD: Referring MD: Staff Name Position Time In Madi Bustillo RN Mail Distributor 03:14 PM Caroline Donovan RT (R) Scrub 03:14 PM Virginia Chase RN Monitor 03:15 PM Indications Indication Unstable Angina Procedures Performed Procedure L HRT ARTERY/VENTRICLE ANGIO Pre-Procedure Checklist Informed consent is complete signed and on chart. H\\T\\P is on chart. ID band is on and ID verified with patient. Patient NPO for procedure The procedure was described for the patient and questions were answered. Blood Pressure: 113/81 ECG is on chart. Rhythm: NSR Plan of Care Patient will tolerate the procedure without complications. Adequate level of comfort will be maintained. Hemodynamics will remain stable Patient will recover from procedure without complications. Respiratory function will be maintained. Cardiac rhythm will remain stable. Patient temperature will be maintained. Patient and/or family have verbalized understanding of the procedure. Patient Education Chief Complaint/Reason for Test: Cardiac Cath Developmental Category: Adult (18-64 years) Developmentally Appropriate for Age: Yes Learning Barriers: None Education Needs: Procedure Education Method: Verbal Information Taught: Cardiac Cath Educational Evaluation: Able to repeat information Intravenous Access Time IV Size Location DC'd Fluid/Drip Rate Units RN 03:02 PM 18g 1 14" Patent On Arrival Lt Antecubital 0.9NaCl 25 ml/hr Virginia Chase RN 03:02 PM 18g 1 1/4" Patent On Arrival Rt Antecubital Allergies Penicillins [place] Penicillin strawberries PCN Vital Signs Time BP (mmHg) HR (bpm) O2 Sat. RR (bpm) LOC 03:03 PM 123 / 78 108 92 % 18 5 = Fully awake and oriented or at pre-proc level 03:16 PM / % 5 = Fully awake and oriented or at pre-proc level 03:16 PM / % 4 = Oriented but drowsy 03:15 PM 113 / 83 74 93 % 17 03:20 PM 120 / 73 86 93 % 30 03:25 PM 108 / 70 91 94 % 32 03:30 PM 126 / 76 91 95 % 28 03:48 PM 104 / 75 110 93 % 22 4 = Oriented but drowsy Procedural Medications Time Medication Dose Units Method Given By 03:15 PM Oxygen 2 L/min nasal cannula Madi Bustillo RN 03:16 PM Versed 1 mg Intravenous Madi Bustillo RN 03:16 PM Fentanyl 50 mcg Intravenous Madi Bustillo RN 03:18 PM Lidocaine 2% 18 ml Subcutaneous Gilles Kessler MD ASA Classification: CLASS III- Severe systemic disease (i.e. prior AMI, diabetes with vascular complications, morbid obesity) Lexii Score Preprocedure Postprocedure Activity 2- Moves 4 extremities sustained head lift Activity 2- Moves 4 extremities sustained head lift Circulation 2- SBP +/= 20 points of pre-anesthetic level Circulation 2- SBP +/= 20 points of pre-anesthetic level Consciousness 2- Awake and alert oriented x 3 Consciousness 2- Awake and alert oriented x 3 O2 Saturation 2- Able to maintain O2 satruation of 92% on room air O2 Saturation 2- Able to maintain O2 satruation of 92% on room air Respiratory 2- Able to deep breathe and cough well Respiratory 2- Able to deep breathe and cough well Total Score 10 Total Score 10 Contrast Agent: Isovue Diagnostic Contrast: 63 ml Total Contrast: 63 ml Fluoro Dose: 65 mGy Procedure Log Time Note Enter By 03:05 PM CathStat 03:10 PM Pt arrived to laboratory inspector 1 at 15:10 dspell 03:10 PM Physician arrived 15:10 03:10 PM Meet and greet completed 03:10 PM Sign in performed according to hospital policy. 03:10 PM Procedure start 15:10 03:14 PM Vitals capture started with the following parameters, Patient=Adult, Interval=5 min, Initial Pqihcmtz=421 mmHg, Deflation Rate=5 mmHg 03:14 PM Madi Bustillo RN Position: Mail Distributor Time in: 15:14 dsp 03:15 PM Caroline Donovan RT (R) Position: Scrub Time in: 15:14 dspeast [facility] 03:15 PM Virginia Chase RN Position: Monitor Time in: 15:15 dspell 03:15 PM Patient charges- Angio tray pack, Navilyst 3mm J, Pulse Oximetry and ACIST tubing and transducer dspell 03:15 PM Case Delayed No ell 03:15 PM HR=74 bpm, HWLS=873/83 mmhg, SpO2=93.0 %, Resp=17 B/min, Comment=nsr 03:15 PM Hair removed from procedure site in procedure lab using clippers. Bilateral groin prepped with Chloraprep by Angie Solorio RT (R) then patient draped. Skin intact. 03:15 PM Time: 15:15 Oxygen on at 2 L/min per nasal cannula by Madi Bustillo RN kayleen 03:16 PM Time: 15:16 Versed 1 mg Intravenous Given by Madi Bustillo RN kayleen :16 PM Time: 15:16 Fentanyl 50 mcg Intravenous Given by Madi Bustillo RN kayleen 03:16 PM Time: 15:16 Patient comfortable and pain free: Yes 16 PM Time: 15:16LOC: 5 = Fully awake and oriented or at pre-proc level dsp 03:16 PM Clinical Presentation: Unstable angina dsp 03:17 PM Recorded ECG: HR=89 Condition=Condition 1 03:18 PM Time out performed according to hospital policy :20 PM Time: 15:18 18 ml Lidocaine 2% to right groin Subcutaneous Given by Gilles Kessler MD 03:20 PM HR=86 bpm, JODI=138/73 mmhg, SpO2=93.0 %, Resp=30 B/min, Comment=nsr 03:20 PM Access obtained by percutaneous puncture. 6Fr 10cm Terumo Mylo sheath placed in right Femoral artery. [id number] dspell 03:20 PM 5Fr FL 4 catheter inserted over the wire DN dspell 03:21 PM LCA angiography performed in multiple views. dspell 03:21 PM Catheter removed dspell 03:22 PM 5Fr FR 4 catheter inserted over the wire [facility] dsp 03:23 PM RCA angiography performed in multiple views. dspell 03:24 PM Catheter removed dspell 03:24 PM 5Fr Pigtail catheter inserted over the wire [facility] dspell 03:24 PM Recorded Pressure: LV, HR=96, Condition=Condition 1 (Left Ventricle) LV 133/-6/11 03:24 PM Recorded Pressure: LV, Ao, HR=92, Condition=Condition 1 (Left Ventricle) LV 137/55/82, (Aorta) Ao 97/58/77 03:24 PM Recorded Pressure: LV, Ao, HR=90, Condition=Condition 1 (Left Ventricle) LV 125/55/67, (Aorta) Ao 100/39/74 03:25 PM Catheter removed dspell 03:25 PM Coronary Dominance: right dspell 03:25 PM HR=91 bpm, BUQZ=245/70 mmhg, SpO2=94.0 %, Resp=32 B/min, Comment=nsr 03:28 PM Procedure completed at 15:28 dspell 03:29 PM Sign out completed: Radiation Dose 65 mGy Fluoro Time: 1.1 Isovue 370 - 200ml contrast 63 ml given by Gilles Kessler MD. Complications: NoneCardiac Rehab Consult needed: NoConfirmed administered medications: Yes dspell 03:29 PM Isovue 370 - 200ml,1 Bottle(s) used. dspell 03:30 PM Arterial sheath pulled, Starclose closure device used and was Successful S/N. dspellman 03:30 PM Post ECG NSR dspell 03:30 PM HR=91 bpm, UYOK=319/76 mmhg, SpO2=95.0 %, Resp=28 B/min, Comment=nsr 03:30 PM Post Blood Pressure 126/76 dspellman 03:30 PM 15:30 Post Pulses Bilateral DP \\T\\ PT 1+ dspell 03:31 PM Information taught Cardiac Cath dspell 03:31 PM Education needs Procedure, Plan of Care, and Responsibilities of Patient in Care dspell 03:31 PM Learning barriers :None dspell 03:31 PM Education Methods Verbal dspell 03:31 PM Education evaluation Able to repeat information dspell 03:31 PM Site status No bleeding/hematoma - Rt Groin as reported by Carmen West RT at 15:31 dspell 03:31 PM Opsite applied dspell 03:31 PM Plavix, Effient or Brilinta given No dspellman 03:31 PM Delay to floor No dspellman 03:32 PM Time: 15:16LOC: 4 = Oriented but drowsy dspellman 03:32 PM Patient out of room: 15:32 dspellman 03:32 PM Family placed in consult room. dspellman 03:32 PM Complications: None dspellman 03:32 PM Fluoro Time: 1.1 dspellman 03:32 PM Isovue 370 - 200ml contrast 63 ml given by Gilles Kessler MD. dspellman 03:33 PM Radiation Dose 65 mGy dspellman 03:44 PM Report given to Fany ODELL Pt taken to E Room #14. 15:44 dspellman 03:44 PM Plavix, Effient or Brilinta given No dspellman 03:44 PM Delay to floor Room is dirty dspellman 03:45 PM Patient out of room: 15:45 dspellman 03:45 PM Family placed in consult room. dspellman 03:45 PM Complications: None dspellman 03:47 PM patient arrive to holding room 2 mprater 03:[address] ng aware of temp 101.5 tempanic , no new orders mprater 04:00 PM transfered patient to [facility], report given to fany sen Complications Complication None None None Hemodynamics Pressures Site Systolic/A Wave Diastolic/V Wave Mean LV 133 -6 11 LV 125 55 67 AO 100 39 74 LV 137 55 82 AO 97 58 77 Post Procedure Information Blood Pressure: 126/76 mmHg Rhythm: NSR Post procedural instructions were given Closure Device Time Device Success/Fail 05/26/2016 3:33:00 PM Starclose Vascular Magda Sys Successful Site Checks Time Location Status Staff Sheath In? Note 03:31 PM Rt Groin No bleeding/hematoma Carmen West RT 03:48 PM Rt Groin No bleeding/ No Hematoma Zabrina Dunlap RN Pulses Time Site Pre-Procedure Post-Procedure Note 3:30:00 PM Bilateral DP \\T\\ PT 1+ 05/26/2016 3:00:00 PM Bilateral DP \\T\\ PT 1+ 05/26/2016 3:48:00 PM Bilateral DP \\T\\ PT 1+ Updated by Barbara Arguelles RT (R) on 05/27/2016 1:41:04 PM Barbara Arguelles RT electronically signed on 05/27/2016 1:41:51 PM with status of Final
--- NOTE | 2016-05-27 14:46 | Electrocardiograph Report ---
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
--- NOTE | 2016-05-27 15:18 | Electrocardiograph Report ---
[place] [address] Test Date: 2016-05-26 Pat Name: Christian Cedeno Department: 104 Room: [facility] Gender: M Director Of Maintenance: : 1960 Requested By: Pratibha Mancuso Order Number: [id number] Reading MD: Dara Bains Measurements Intervals [place] Rate: 88 P: 69 NE: 138 QRS: 45 QRSD: 78 T: 73 QT: 313 QTc: 358 Interpretive Statements SINUS RHYTHM WITH SINUS ARRHYTHMIA Nonspecific ST-T wave changes in septal leads Electronically Signed On 05-27-2016 15:17:01 EST by Dara Bains
[2016-05-27 16:35] LABS: INR 1.5; Ionized Calcium 1.07 mmol/L (1.15-1.35)
[2016-05-27 16:36] LABS: Magnesium 1.7 mg/dL (1.6-2.6)
[2016-05-27 16:37] LABS: Hematocrit 20.2 % (37.5-50.1); Hemoglobin 7.3 g/dL (12.9-16.9); Immature Platelets 6.3 % (1.1-6.1); Mean Corpuscular HGB Conc 36.1 g/dL (31.6-35.5); Mean Corpuscular Hemoglobin 30.4 pg (28.0-33.3); Mean Corpuscular Volume 84.2 fL (83.0-100.0); Platelet Count 121 K/mcL (140-400)
[2016-05-27] MEDS ORDERED: *HR* Phytonadione 10 MG/ML AMPUL SQ SCH (16:45)
[2016-05-27] MEDS ORDERED: Levofloxacin 500 MG/100 ML 500 MG/100 ML BAG IVPB SCH (17:00)
[2016-05-27] MEDS: Levofloxacin 500 MG/100 ML 500 MG/100 ML BAG IVPB SCH (17:03)
[2016-05-27 17:06] LABS: Lymphocytes # 2.7 K/mcL (0.6-4.6); Monocytes # 1.4 K/mcL (0.0-1.3)
[2016-05-27] MEDS: Pantoprazole 40 MG VIAL IVP SCH (17:06)
[2016-05-27 17:07] LABS: Platelet Estimate Slight Decrease (Normal)
[2016-05-27] MEDS ORDERED: Pantoprazole 40 MG VIAL IVP SCH (18:00)
[2016-05-27 21:59] LABS: Hematocrit 19.1 % (37.5-50.1); Hemoglobin 6.8 g/dL (12.9-16.9)
[2016-05-27 22:15] LABS: BUN/Creatinine Ratio 27 (6-26); Blood Urea Nitrogen 29 mg/dL (8-26); Calcium 8.9 mg/dL (8.6-10.8); Carbon Dioxide 21 mEq/L (19-29); Chloride 106 mEq/L (98-109); Glucose 124 mg/dL (70-99); Osmolality,Calculated 293 (280-300); Potassium 3.8 mEq/L (3.5-4.5); Sodium 138 mEq/L (136-145); eGFR For African Americans > 60 (> 60); eGFR For Non-African Americans > 60 (> 60)
[2016-05-28] MEDS: *HR* Morphine 2 MG/ML SYRINGE IVP PRN ×5 (01:42→17:35)
[2016-05-28 03:37] LABS: Hematocrit 18.7 % (37.5-50.1); Hemoglobin 6.7 g/dL (12.9-16.9); Immature Platelets 5.5 % (1.1-6.1); Mean Corpuscular HGB Conc 35.8 g/dL (31.6-35.5); Mean Corpuscular Hemoglobin 30.3 pg (28.0-33.3); Mean Corpuscular Volume 84.6 fL (83.0-100.0); Mean Platelet Volume 10.1 fL (9.4-12.4); Platelet Count 128 K/mcL (140-400); Red Blood Count 2.21 M/mcL (4.19-5.50); Red Cell Distribution Width 16.8 % (11.5-14.5)
[2016-05-28 03:47] LABS: INR 1.4; Prothrombin Time 15.6 Seconds (9.4-12.1)
[2016-05-28 03:51] LABS: Alanine Aminotransferase 292 Units/L (0-55); Albumin 3.8 g/dL (3.5-5.0); Alkaline Phosphatase 68 Units/L (38-126); Aspartate Amino Transferase 243 Units/L (5-34); BUN/Creatinine Ratio 27 (6-26); Blood Urea Nitrogen 28 mg/dL (8-26); Calcium 8.9 mg/dL (8.6-10.8); Carbon Dioxide 22 mEq/L (19-29); Chloride 105 mEq/L (98-109); Globulin 1.9 g/dL (2.4-3.5); Glucose 112 mg/dL (70-99); Osmolality,Calculated 286 (280-300); Phosphorous 2.5 mg/dL (2.3-4.7); Potassium 4.3 mEq/L (3.5-4.5); Sodium 135 mEq/L (136-145); Total Protein 5.7 g/dL (6.0-8.3); eGFR For African Americans > 60 (> 60); eGFR For Non-African Americans > 60 (> 60)
[2016-05-28 04:30] LABS: Lymphocytes # 0.8 K/mcL (0.6-4.6); Monocytes # 0.8 K/mcL (0.0-1.3); Neutrophils # 12.1 K/mcL (1.6-8.9); Platelet Estimate Slight Decrease (Normal)
[2016-05-28] MEDS: Vasopressin 40 UNIT in D5% in Water 100 ML IV SCH (05:19)
--- NOTE | 2016-05-28 07:01 | Pulmonology Progress Note ---
<Aayush Almanzar W - Last Filed: 05/28/16 09:38> Objective PUL Vital signs: Last Vital Signs Temp 97.7 F 05/28/16 08:33 Pulse 80 05/28/16 08:33 Resp 24 05/28/16 08:33 BP 121/85 05/28/16 08:33 Pulse Ox 95 05/28/16 08:33 Results - Laboratory Findings CBC and BMP: 05/28/16 03:23 05/28/16 03:23 ABG ABG pH 7.33 pH Units (7.32-7.45) 05/27/16 07:15 ABG pCO2 28 mmHg (35-45) L 05/27/16 07:15 ABG pO2 92 mmHg (85-104) 05/27/16 07:15 ABG O2 Saturation 97 % (95-98) 05/27/16 07:15 PT/INR, D-dimer PT 15.6 Seconds (9.4-12.1) H 05/28/16 03:23 D-Dimer 537 ng/mLFEU (0-500) H 05/26/16 14:19 Abnormal lab findings: Abnormal lab results WBC 13.8 K/mcL (4.3-11.1) H 05/28/16 03:23 RBC 2.21 M/mcL (4.19-5.50) L 05/28/16 03:23 Hgb 6.7 g/dL (12.9-16.9) L 05/28/16 03:23 Hct 18.7 % (37.5-50.1) L 05/28/16 03:23 MCHC 35.8 g/dL (31.6-35.5) H 05/28/16 03:23 RDW 16.8 % (11.5-14.5) H 05/28/16 03:23 Plt Count 128 K/mcL (140-400) L 05/28/16 03:23 Band Neutrophils % 18.0 % (0-4) H 05/28/16 03:23 Neutrophils # 12.1 K/mcL (1.6-8.9) H 05/28/16 03:23 Platelet Estimate Slight Decrease (Normal) L 05/28/16 03:23 Anisocytosis 1+ (Not Present) A 05/27/16 07:40 PT 15.6 Seconds (9.4-12.1) H 05/28/16 03:23 D-Dimer 537 ng/mLFEU (0-500) H 05/26/16 14:19 ABG pCO2 28 mmHg (35-45) L 05/27/16 07:15 ABG HCO3 14.8 mEQ/L (21-27) L 05/27/16 07:15 ABG Total CO2 15.7 mEq/L (20-26) L 05/27/16 07:15 ABG Base Excess -9.9 mEq/L (-2.0 to 3.0) L 05/27/16 07:15 Sodium 135 mEq/L (136-145) L 05/28/16 03:23 BUN 28 mg/dL (8-26) H 05/28/16 03:23 BUN/Creatinine Ratio 27 (6-26) H 05/28/16 03:23 Glucose 112 mg/dL (70-99) H 05/28/16 03:23 POC Glucose 104 (58-89) H 05/28/16 07:18 Total Bilirubin 4.0 mg/dL (0.2-1.2) H 05/28/16 03:23 Direct Bilirubin 3.0 mg/dL (0.0-0.5) H 05/27/16 00:08 Indirect Bilirubin 1.5 mg/dL (0.0-1.2) H 05/27/16 00:08 AST 243 Units/L (5-34) H 05/28/16 03:23 ALT 292 Units/L (0-55) H 05/28/16 03:23 Troponin I 0.04 ng/mL (0-0.03) H* 05/27/16 11:45 Serum Total Protein 5.7 g/dL (6.0-8.3) L 05/28/16 03:23 Globulin 1.9 g/dL (2.4-3.5) L 05/28/16 03:23 Ur Specific [place] > 1.030 (1.010-1.025) H 05/27/16 02:55 Urine Bilirubin Small (Negative) H 05/27/16 02:55 Salicylates < 5.0 mg/dL (15-30) L 05/26/16 21:18 Urine Opiates Screen Positive ng/mL (Rxbuyt=546) H 05/27/16 02:55 Acetaminophen < 1.0 mcg/mL (10-30) L 05/27/16 11:45 U Benzodiazepines Scrn Positive ng/mL (Cgvqnz=901) H 05/27/16 02:55 U Marijuana (THC) Screen Positive ng/mL (Cutoff = 50) H 05/27/16 02:55 Hep Bs Antigen Reactive (Nonreactive) H 05/27/16 11:45 - Clinical Findings Intake & Output: Intake & Output 05/27/16 05/28/16 05/28/16 23:59 07:59 15:59 Intake Total 414 / 414 500 / 500 0 / 0 Output Total 400 / 400 500 / 500 Balance 0 / 0 0 / 0 Weight 66.905 kg Consult Discharge Plan - Plan Referrals: Dara Perry MD [Primary Care Provider] - - Attending Attestation I examined this patient and my medical decision-making was reviewed with the NURSE DISCHARGE/PA/Advanced Practice Nurse/Resident Physician. I agree with the documented findings, disposition and treatment plan as described except to the extent set forth below. Patient seen and examined at bedside Labs, radiology, chart personally reviewed All lines exained w/o evidence of infection . Neuropsych: Awake and alert no distress. Pulm: Acute respiratory failure s/t volume overload possibly complicated by PNA. Cont ABx. Wean Fio2 to keep sats 92-94% NIPPV if needed. Cards: Concern for UA s/p LHC complicated by RP bleeding s/p iliac stent placement by Vasc Surgery. no evidence of sig CAD on cath. Now with likely pulmonary edema. (Likely) Distributive Shock with elevated lactate now resolved FEN-GI: Acute transaminitis in a hepatocellular injury pattern of unclear etiology (imaging iwthout clear cause including MRCP). HEP B sAg+ rest of panel pending APAP level WNL but concern for chronic ingestion of large amounts Transaminases cont to trend down today and are nearing normalization values with no signficant RUQ pain. F/u viral panel. GI consulted , ADAT Renal: Stable kindey function monitor UOP small dose of loop diuretic. ID: Severe sepsis ?CAP vs intraabdominal source (although imaging negative) vs Acute Viral Hepatitis. cont Levaquin and Flagyl will consider ID consult Heme/Onc: H/H essentially stable overnight post RP bleed from Cath with stenting by Vasc Surgery. Small decline in h/h overnight now Hgb <7 and will transfuse 1uPRBC today Endo: Glucose monitored Integ/MSK: No evidence of skin break down cont MARBLE FINISHER protocol to prevent ulcers CODE: Full family including updated at bedside. <Sabrina Boo - Last Filed: 05/28/16 11:08> Date of Encounter: 05/28/16 Time of Encounter: 06:40 Assessment and Plan (1) Transaminitis Current Visit: Yes Status: Acute Presented to ED with complaint of nausea, vomiting, abdominal pain x1 day prior to admission No history of liver disease, gallbladder disease or taking large amounts of medication Acetaminophen level was 3.0, Salicylate level <5.0, Ethyl Alcohol level <10 on admission GI consulted MRCP completed yesterday with no evidence of cholangitis Hepatitis B surface antigen positive, awaiting complete hepatitis panel results AST:243 (decreased from 309 yesterday) ALT:292 (decreased from 346 yesterday) (2) Retroperitoneal hematoma Current Visit: Yes Status: Acute Secondary to left heart cath complication Likely cause of hemorrhagic shock Dr. [place] completed covered stent placement in right external iliac artery yesterday Incisions sites are clean, intact, with no drainage Hgb:6.7 today, transfused 1unit RBCs, continue to monitor Hgb/Hct Will follow transfusion with dose of lasix (3) Sepsis Current Visit: Yes Status: Acute Patient had fever, tachypnea, hypotension and borderline tachycardia yesterday morning Sepsis was suspected the night prior when pt returned from heart cath. Urine was negative Influenza negative Blood cultures negative CXR was negative at that time CT abdomen/pelvis demonstrated a large right hematoma, mild patchy airspace opacities in lung bases Suspect sepsis-like presentation due to hemorrhagic shock due to retroperitoneal bleed from heart cath complications Elevated WBC (21.7 yesterday) likely due to stress reaction. WBC:13.8 today Lactic acidosis (6.6 yesterday) likely due decreased perfusion Workup for hepatitis demonstrated reactive Hepatitis B Antigen, other labs still pending Continue Levaquin, flagyl Continue to follow labs and vitals Qualifiers: Sepsis type: sepsis due to unspecified organism Qualified Code(s): A41.9 - Sepsis, unspecified organism (4) Unstable angina Current Visit: Yes Status: Acute Chest pain present on admission with ST elevations on V1, V2. Troponin was 0.00 Underwent left heart cath which was unremarkable Will follow cardio recommendations for management (5) Hypertension Current Visit: Yes Status: Chronic BP and vitals stable, continue to monitor Qualifiers: Hypertension type: essential hypertension Qualified Code(s): I10 - Essential (primary) hypertension (6) Tobacco abuse Current Visit: Yes Status: Chronic Nicotine patch ordered (7) DVT prophylaxis Current Visit: Yes Status: Acute Currently on Plavix Subjective Principal diagnosis: Chest pain; n/v; RP bleed Interval history: Pt currently on BiPAP. States he is feeling better than yesterday, but continues to have pain in the right side of his back. According to nursing, he became anxious over night, nearly getting out of bed, however that has resolved now. Objective PUL Vital signs: Last Vital Signs Temp 98.8 F 05/28/16 04:00 Pulse 80 05/28/16 06:00 Resp 24 05/28/16 06:00 BP 121/85 05/28/16 06:00 Pulse Ox 95 05/28/16 06:00 General appearance: no acute distress Eyes: nonicteric ENT: oropharynx moist Neck: supple Effort: other (BiPAP for oxygen supplementation) Auscultation: bilateral: wheezes, rhonchi Cardiovascular: regular rate and rhythm Gastrointestinal: normoactive bowel sounds, soft, non-tender, non-distended Extremities: no cyanosis, no edema, no clubbing, pink and warm Musculoskeletal: no deformities non-focal exam mood appropriate, affect normal Results - Laboratory Findings CBC and BMP: 05/28/16 03:23 05/28/16 03:23 ABG ABG pH 7.33 pH Units (7.32-7.45) 05/27/16 07:15 ABG pCO2 28 mmHg (35-45) L 05/27/16 07:15 ABG pO2 92 mmHg (85-104) 05/27/16 07:15 ABG O2 Saturation 97 % (95-98) 05/27/16 07:15 PT/INR, D-dimer PT 15.6 Seconds (9.4-12.1) H 05/28/16 03:23 D-Dimer 537 ng/mLFEU (0-500) H 05/26/16 14:19 Abnormal lab findings: Abnormal lab results WBC 13.8 K/mcL (4.3-11.1) H 05/28/16 03:23 RBC 2.21 M/mcL (4.19-5.50) L 05/28/16 03:23 Hgb 6.7 g/dL (12.9-16.9) L 05/28/16 03:23 Hct 18.7 % (37.5-50.1) L 05/28/16 03:23 MCHC 35.8 g/dL (31.6-35.5) H 05/28/16 03:23 RDW 16.8 % (11.5-14.5) H 05/28/16 03:23 Plt Count 128 K/mcL (140-400) L 05/28/16 03:23 Band Neutrophils % 18.0 % (0-4) H 05/28/16 03:23 Neutrophils # 12.1 K/mcL (1.6-8.9) H 05/28/16 03:23 Platelet Estimate Slight Decrease (Normal) L 05/28/16 03:23 Anisocytosis 1+ (Not Present) A 05/27/16 07:40 PT 15.6 Seconds (9.4-12.1) H 05/28/16 03:23 D-Dimer 537 ng/mLFEU (0-500) H 05/26/16 14:19 ABG pCO2 28 mmHg (35-45) L 05/27/16 07:15 ABG HCO3 14.8 mEQ/L (21-27) L 05/27/16 07:15 ABG Total CO2 15.7 mEq/L (20-26) L 05/27/16 07:15 ABG Base Excess -9.9 mEq/L (-2.0 to 3.0) L 05/27/16 07:15 Sodium 135 mEq/L (136-145) L 05/28/16 03:23 BUN 28 mg/dL (8-26) H 05/28/16 03:23 BUN/Creatinine Ratio 27 (6-26) H 05/28/16 03:23 Glucose 112 mg/dL (70-99) H 05/28/16 03:23 POC Glucose 142 (58-89) H 05/27/16 19:18 Total Bilirubin 4.0 mg/dL (0.2-1.2) H 05/28/16 03:23 Direct Bilirubin 3.0 mg/dL (0.0-0.5) H 05/27/16 00:08 Indirect Bilirubin 1.5 mg/dL (0.0-1.2) H 05/27/16 00:08 AST 243 Units/L (5-34) H 05/28/16 03:23 ALT 292 Units/L (0-55) H 05/28/16 03:23 Troponin I 0.04 ng/mL (0-0.03) H* 05/27/16 11:45 Serum Total Protein 5.7 g/dL (6.0-8.3) L 05/28/16 03:23 Globulin 1.9 g/dL (2.4-3.5) L 05/28/16 03:23 Ur Specific [place] > 1.030 (1.010-1.025) H 05/27/16 02:55 Urine Bilirubin Small (Negative) H 05/27/16 02:55 Salicylates < 5.0 mg/dL (15-30) L 05/26/16 21:18 Urine Opiates Screen Positive ng/mL (Hogcue=443) H 05/27/16 02:55 Acetaminophen < 1.0 mcg/mL (10-30) L 05/27/16 11:45 U Benzodiazepines Scrn Positive ng/mL (Thvtrd=999) H 05/27/16 02:55 U Marijuana (THC) Screen Positive ng/mL (Cutoff = 50) H 05/27/16 02:55 Hep Bs Antigen Reactive (Nonreactive) H 05/27/16 11:45 - Clinical Findings Intake & Output: Intake & Output 05/27/16 05/27/16 05/28/16 15:59 23:59 07:59 Intake Total 2544 / 2544 414 / 414 500 / 500 Output Total 625 / 625 400 / 400 350 / 350 Balance 1918 / 1918 150 / 150 Weight 66.905 kg
[2016-05-28] MEDS: Ipratropium/Albuterol Neb 3 ML IH SCH ×3 (07:39→21:24)
[2016-05-28] MEDS ORDERED: Furosemide 20 MG/2 ML VIAL IVP ONE ×2 (07:44→09:25)
[2016-05-28] MEDS: Nicotine 14 MG PATCH.TD24 TD SCH (11:21)
[2016-05-28] MEDS: *HR* Heparin 5,000 UNIT/ML VIAL SQ SCH ×2 (11:22→20:43)
[2016-05-28] MEDS: Nystatin SUSP 5 ML UD.LIQ PO SCH ×3 (11:22→20:42)
[2016-05-28] MEDS: Pantoprazole 40 MG VIAL IVP SCH (11:23)
[2016-05-28] MEDS: MetroNIDAZOLE 500 MG/100 ML 500 MG/100 ML BAG IVPB SCH ×2 (11:23→16:35)
[2016-05-28 11:29] LABS: Hepatitis A Antibody IgM Nonreactive (Nonreactive); Hepatitis C Virus Antibody Nonreactive (Nonreactive)
[2016-05-28 11:37] LABS: Hepatitis B Core IgM Reactive (Nonreactive)
[2016-05-28 11:58] LABS: Hematocrit 22.5 % (37.5-50.1); Hemoglobin 7.9 g/dL (12.9-16.9)
--- NOTE | 2016-05-28 12:35 | Gastroenterology Progress Note ---
<Jai David Christina - Last Filed: 05/28/16 12:32> Date of Encounter: 05/28/16 Time of Encounter: 11:20 - Assessment and plan (1) Transaminitis Current Visit: Yes Status: Acute Assessment and plan: Likely secondary to Hepatitis B as Hep B surface antigen positive. Awaiting remaining hepatitis panel. On admission labs revealed TB 5.4, DB 3.9, AST 1332, and ALT 1173. On 05/27 labs TB 4.5, DB 3, AST 434, ALT 496, today (05/28) TB 4, AST 243, ALT 292, Alk phos 68. MRCP negative for cholangitis. (2) Nausea and vomiting Current Visit: Yes Status: Acute Assessment and plan: Improved. Continue antiemetics. Qualifiers: Vomiting type: unspecified Vomiting Intractability: non-intractable Qualified Code(s): R11.2 - Nausea with vomiting, unspecified (3) Sepsis Current Visit: Yes Status: Acute Assessment and plan: Management per primary team Qualifiers: Sepsis type: sepsis due to unspecified organism Qualified Code(s): A41.9 - Sepsis, unspecified organism - Time Spent With Patient Total time spent is greater than 50% in coordination of care (as documented) at patient's floor/unit and/or counseling patient: - Subjective Interval history: Patient currently on BiPAP. His only complaint at this time is not being able to "catch his breath". MRI showed no cholangitis. - Constitutional Vitals: Temp Pulse Resp BP Pulse Ox 99.2 F 86 22 123/90 93 L 05/28/16 12:05 05/28/16 12:00 05/28/16 12:00 05/28/16 12:00 05/28/16 12:00 General appearance: Present: cooperative, A&O X 3, no acute distress, answers questions appropriately - Head Head exam: Present: atraumatic, normocephalic - Eye Eye exam: Present: normal appearance, sclera anicteric - ENT ENT exam: Present: mucous membranes dry - Neck Neck exam general surgery: Present: normal inspection, trachea midline - Respiratory Respiratory exam: Present: decreased breath sounds, CTAB - Cardiovascular Cardiovascular exam: Present: RRR, +S1, +S2 - GI/Abdominal GI/Abdominal exam: Present: soft, no peritoneal signs. Absent: distended, firm , guarding, tenderness - Rectal Rectal exam: Present: deferred - Extremities Exam Extremities exam: Present: warm - Neurological Exam Neurological exam: Present: no focal deficits - Psychiatric Psychiatric exam: Present: normal affect, normal mood - Skin Skin exam: Present: dry, intact, normal color, warm Results - Labs CBC & Chem 7: 05/28/16 11:43 05/28/16 03:23 Labs: Last Result Calcium 8.9 mg/dL (8.6-10.8) 05/28/16 03:23 Troponin I 0.04 ng/mL (0-0.03) H* 05/27/16 11:45 Salicylates < 5.0 mg/dL (15-30) L 05/26/16 21:18 Urine Opiates Screen Positive ng/mL (Vitdto=014) H 05/27/16 02:55 Entire Visit Hgb 7.9 g/dL (12.9-16.9) L 05/28/16 11:43 Hct 22.5 % (37.5-50.1) L 05/28/16 11:43 PT 15.6 Seconds (9.4-12.1) H 05/28/16 03:23 Total Bilirubin 4.0 mg/dL (0.2-1.2) H 05/28/16 03:23 AST 243 Units/L (5-34) H 05/28/16 03:23 ALT 292 Units/L (0-55) H 05/28/16 03:23 Lipase 13 Units/L (8-78) 05/26/16 14:19 Acetaminophen < 1.0 mcg/mL (10-30) L 05/27/16 11:45 - ABG ABG results: ABG ABG pH 7.33 pH Units (7.32-7.45) 05/27/16 07:15 ABG pCO2 28 mmHg (35-45) L 05/27/16 07:15 ABG pO2 92 mmHg (85-104) 05/27/16 07:15 ABG O2 Saturation 97 % (95-98) 05/27/16 07:15 PT/INR, D-dimer PT 15.6 Seconds (9.4-12.1) H 05/28/16 03:23 D-Dimer 537 ng/mLFEU (0-500) H 05/26/16 14:19 - Impressions Impressions Abdomen MRI 05/27/16 10:38 IMPRESSION: 1. No evidence of cholangitis. Assessment is somewhat limited due to motion and lack of intravenous contrast. 2. Blood and free fluid in the right abdomen which appear mildly increased since comparison examination. D/ / Jorge Gandara MD / Jorge Gandara MD Interpreting Provider: Jorge Gandara MD Retroperitoneum Ultrasound 05/27/16 14:00 IMPRESSION: Minimal right-sided hydronephrosis. There is a small amount fluid within the hepatorenal recess which may be related to the patient's known hematoma. D/ / Radha Cassidy MD / Radha Cassidy MD Interpreting Provider: Radha Cassidy MD Chest X-Ray 05/28/16 00:00 IMPRESSION: Bilateral atelectasis and/or pneumonia. D/ / Román Perez MD / Román Perez MD Interpreting Provider: Román Perez MD Consult Discharge Plan - Plan Referrals: Dara Perry MD [Primary Care Provider] - <Qasim Augustine - Last Filed: 05/28/16 18:30> Time of Encounter: 17:00 - Time Spent With Patient Total time spent is greater than 50% in coordination of care (as documented) at patient's floor/unit and/or counseling patient: - Constitutional Vitals: Temp Pulse Resp BP Pulse Ox 98.6 F 108 25 136/89 90 L 05/28/16 15:35 05/28/16 17:00 05/28/16 17:00 05/28/16 17:00 05/28/16 17:00 Results - Labs CBC & Chem 7: 05/28/16 11:43 05/28/16 17:04 Labs: Last Result Calcium 8.9 mg/dL (8.6-10.8) 05/28/16 17:04 Troponin I 0.04 ng/mL (0-0.03) H* 05/27/16 11:45 Salicylates < 5.0 mg/dL (15-30) L 05/26/16 21:18 Urine Opiates Screen Positive ng/mL (Nupmus=410) H 05/27/16 02:55 Entire Visit Hgb 7.9 g/dL (12.9-16.9) L 05/28/16 11:43 Hct 22.5 % (37.5-50.1) L 05/28/16 11:43 PT 15.6 Seconds (9.4-12.1) H 05/28/16 03:23 Total Bilirubin 4.0 mg/dL (0.2-1.2) H 05/28/16 03:23 AST 243 Units/L (5-34) H 05/28/16 03:23 ALT 292 Units/L (0-55) H 05/28/16 03:23 Lipase 13 Units/L (8-78) 05/26/16 14:19 Acetaminophen < 1.0 mcg/mL (10-30) L 05/27/16 11:45 - ABG ABG results: ABG ABG pH 7.33 pH Units (7.32-7.45) 05/27/16 07:15 ABG pCO2 28 mmHg (35-45) L 05/27/16 07:15 ABG pO2 92 mmHg (85-104) 05/27/16 07:15 ABG O2 Saturation 97 % (95-98) 05/27/16 07:15 PT/INR, D-dimer PT 15.6 Seconds (9.4-12.1) H 05/28/16 03:23 D-Dimer 537 ng/mLFEU (0-500) H 05/26/16 14:19 - Impressions Impressions Chest X-Ray 05/28/16 00:00 IMPRESSION: Bilateral atelectasis and/or pneumonia. D/ / Román Perez MD / Román Perez MD Interpreting Provider: Román Perez MD - Attending Attestation I examined this patient and my medical decision-making was reviewed with the PRODUCT MARKETING COORDINATOR/PA/Advanced Practice Nurse/Resident Physician. I agree with the documented findings, disposition and treatment plan as described except to the extent set forth below. Patient with elevated LFTs due to acute hepatitis B. do not need treatment for acute hepatitis B. Labs in 3 month to make sure that his B has not become chronic
[2016-05-28] MEDS ORDERED: MethylPREDNISolone 40 MG/ML VIAL ONE (13:42)
[2016-05-28] MEDS: Levofloxacin 500 MG/100 ML 500 MG/100 ML BAG IVPB SCH (16:35)
[2016-05-28 17:41] LABS: BUN/Creatinine Ratio 25 (6-26); Blood Urea Nitrogen 29 mg/dL (8-26); Calcium 8.9 mg/dL (8.6-10.8); Carbon Dioxide 20 mEq/L (19-29); Chloride 104 mEq/L (98-109); Glucose 152 mg/dL (70-99); Osmolality,Calculated 289 (280-300); Potassium 4.4 mEq/L (3.5-4.5); Sodium 135 mEq/L (136-145); eGFR For African Americans > 60 (> 60); eGFR For Non-African Americans > 60 (> 60)
[2016-05-28] MEDS ORDERED: *HR* Morphine 2 MG/ML SYRINGE IVP PRN ×2 (19:42)
[2016-05-28] MEDS ORDERED: Metoclopramide 10 MG/2 ML VIAL IVP PRN (19:42)
[2016-05-28] MEDS ORDERED: Naloxone 0.4 MG/ML INJ IVP PRN (19:42)
[2016-05-28] MEDS ORDERED: Ondansetron 4 MG/2 ML VIAL IVP PRN (19:42)
[2016-05-28] MEDS ORDERED: Nitroglycerin 0.4 MG TAB.SUBL SL PRN (19:42)
[2016-05-28] MEDS: *HR* LORazepam 2 MG/ML VIAL IVP PRN (20:42)
[2016-05-28] MEDS ORDERED: Ipratropium/Albuterol Neb 3 ML IH SCH (22:00)
[2016-05-29] MEDS ORDERED: MetroNIDAZOLE 500 MG/100 ML 500 MG/100 ML BAG IVPB SCH (00:30)
[2016-05-29] MEDS: Ipratropium/Albuterol Neb 3 ML IH SCH ×4 (04:08→22:40)
[2016-05-29 04:17] LABS: Basophils % 0.2 %; Hemoglobin 8.5 g/dL (12.9-16.9); Immature Granulocytes % 1.7 % (0-4); Lymphocytes # 1.1 K/mcL (0.6-4.6); Lymphocytes % 8.3 %; Mean Corpuscular Hemoglobin 29.8 pg (28.0-33.3); Mean Corpuscular Volume 87.7 fL (83.0-100.0); Monocytes % 7.9 %; Neutrophils # 10.3 K/mcL (1.6-8.9); Nucleated Red Blood Cells 0.2 /100 WBC (0); Platelet Count 180 K/mcL (140-400); Red Blood Count 2.85 M/mcL (4.19-5.50); Segmented Neutrophils % 81.9 %
[2016-05-29 04:32] LABS: Ionized Calcium 1.17 mmol/L (1.15-1.35)
[2016-05-29 04:40] LABS: Phosphorous 3.6 mg/dL (2.3-4.7)
[2016-05-29 04:43] LABS: Alanine Aminotransferase 303 Units/L (0-55); Albumin 3.6 g/dL (3.5-5.0); Albumin/Globulin Ratio 1.4 (1.1-2.2); Alkaline Phosphatase 87 Units/L (38-126); Aspartate Amino Transferase 215 Units/L (5-34); BUN/Creatinine Ratio 28 (6-26); Blood Urea Nitrogen 30 mg/dL (8-26); Calcium 9.2 mg/dL (8.6-10.8); Carbon Dioxide 24 mEq/L (19-29); Chloride 104 mEq/L (98-109); Globulin 2.5 g/dL (2.4-3.5); Glucose 121 mg/dL (70-99); Osmolality,Calculated 293 (280-300); Potassium 4.3 mEq/L (3.5-4.5); Sodium 138 mEq/L (136-145); Total Protein 6.1 g/dL (6.0-8.3); eGFR For African Americans > 60 (> 60); eGFR For Non-African Americans > 60 (> 60)
[2016-05-29 04:45] LABS: Bilirubin,Total 3.5 mg/dL (0.2-1.2); Magnesium 1.8 mg/dL (1.6-2.6)
[2016-05-29] MEDS ORDERED: Furosemide 20 MG/2 ML VIAL IVP ONE (06:50)
--- NOTE | 2016-05-29 07:06 | Pulmonology Progress Note ---
<Aayush Almanzar W - Last Filed: 05/29/16 08:02> Objective PUL Vital signs: Last Vital Signs Temp 97.9 F 05/29/16 07:45 Pulse 71 05/29/16 06:00 Resp 17 05/29/16 06:00 BP 118/81 05/29/16 06:00 Pulse Ox 91 L 05/29/16 06:00 Results - Laboratory Findings CBC and BMP: 05/29/16 02:58 05/29/16 02:59 ABG ABG pH 7.33 pH Units (7.32-7.45) 05/27/16 07:15 ABG pCO2 28 mmHg (35-45) L 05/27/16 07:15 ABG pO2 92 mmHg (85-104) 05/27/16 07:15 ABG O2 Saturation 97 % (95-98) 05/27/16 07:15 PT/INR, D-dimer PT 15.6 Seconds (9.4-12.1) H 05/28/16 03:23 D-Dimer 537 ng/mLFEU (0-500) H 05/26/16 14:19 Abnormal lab findings: Abnormal lab results WBC 12.6 K/mcL (4.3-11.1) H 05/29/16 02:58 RBC 2.85 M/mcL (4.19-5.50) L 05/29/16 02:58 Hgb 8.5 g/dL (12.9-16.9) L 05/29/16 02:58 Hct 25.0 % (37.5-50.1) L 05/29/16 02:58 RDW 17.0 % (11.5-14.5) H 05/29/16 02:58 Band Neutrophils % 18.0 % (0-4) H 05/28/16 03:23 Neutrophils # 10.3 K/mcL (1.6-8.9) H 05/29/16 02:58 Nucleated RBCs/100 WBC 0.2 /100 WBC (0) H 05/29/16 02:58 Platelet Estimate Slight Decrease (Normal) L 05/28/16 03:23 Anisocytosis 1+ (Not Present) A 05/27/16 07:40 PT 15.6 Seconds (9.4-12.1) H 05/28/16 03:23 D-Dimer 537 ng/mLFEU (0-500) H 05/26/16 14:19 ABG pCO2 28 mmHg (35-45) L 05/27/16 07:15 ABG HCO3 14.8 mEQ/L (21-27) L 05/27/16 07:15 ABG Total CO2 15.7 mEq/L (20-26) L 05/27/16 07:15 ABG Base Excess -9.9 mEq/L (-2.0 to 3.0) L 05/27/16 07:15 BUN 30 mg/dL (8-26) H 05/29/16 02:59 BUN/Creatinine Ratio 28 (6-26) H 05/29/16 02:59 Glucose 121 mg/dL (70-99) H 05/29/16 02:59 POC Glucose 122 (58-89) H 05/29/16 07:28 Total Bilirubin 3.5 mg/dL (0.2-1.2) H 05/29/16 02:59 Direct Bilirubin 3.0 mg/dL (0.0-0.5) H 05/27/16 00:08 Indirect Bilirubin 1.5 mg/dL (0.0-1.2) H 05/27/16 00:08 AST 215 Units/L (5-34) H 05/29/16 02:59 ALT 303 Units/L (0-55) H 05/29/16 02:59 Troponin I 0.04 ng/mL (0-0.03) H* 05/27/16 11:45 Ur Specific [place] > 1.030 (1.010-1.025) H 05/27/16 02:55 Urine Bilirubin Small (Negative) H 05/27/16 02:55 Salicylates < 5.0 mg/dL (15-30) L 05/26/16 21:18 Urine Opiates Screen Positive ng/mL (Atvxhi=151) H 05/27/16 02:55 Acetaminophen < 1.0 mcg/mL (10-30) L 05/27/16 11:45 U Benzodiazepines Scrn Positive ng/mL (Ugnvbb=131) H 05/27/16 02:55 U Marijuana (THC) Screen Positive ng/mL (Cutoff = 50) H 05/27/16 02:55 Hep Bs Antigen Reactive (Nonreactive) H 05/27/16 11:45 Hep B Core IgM Ab Reactive (Nonreactive) H 05/27/16 11:45 - Clinical Findings Intake & Output: Intake & Output 05/28/16 05/29/16 05/29/16 23:59 07:59 15:59 Intake Total 200 / 200 300 / 300 Output Total 575 / 575 125 / 125 Balance -375 / -375 175 / 175 Weight 66.769 kg Consult Discharge Plan - Plan Referrals: Dara Perry MD [Primary Care Provider] - - Attending Attestation I examined this patient and my medical decision-making was reviewed with the CHANGE MANAGEMENT COORDINATOR/PA/Advanced Practice Nurse/Resident Physician. I agree with the documented findings, disposition and treatment plan as described except to the extent set forth below. Patient seen and examined at bedside Labs, radiology, chart personally reviewed All lines exained w/o evidence of infection . Neuropsych: Awake and alert no distress. Pulm: Acute respiratory failure s/t volume overload possibly complicated by PNA. Cont ABx. Wean Fio2 to keep sats 92-94% much improved overnight with diuresis Cards: Concern for UA s/p LHC complicated by RP bleeding s/p iliac stent placement no evidence of sig CAD on cath. Stable on TELE FEN-GI: Acute transaminitis in Hepatocellular pattern s/t to Acute Hep B. GI following no treatment indicated acutely. Improving. ADAT Renal: Stable kindey function remove hoover catheter. one time dose of loop diuretic again today. ID: Severe sepsis ?CAP with Acute Viral Hepatitis. 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 <Sabrina Boo - Last Filed: 05/29/16 08:36> Date of Encounter: 05/29/16 Time of Encounter: 06:35 Assessment and Plan (1) Transaminitis Current Visit: Yes Status: Acute Presented to ED with complaint of nausea, vomiting, abdominal pain x1 day prior to admission No history of liver disease, gallbladder disease or taking large amounts of medication Acetaminophen level was 3.0, Salicylate level <5.0, Ethyl Alcohol level <10 on admission GI consulted MRCP completed yesterday with no evidence of cholangitis Hepatitis B Positive AST:215 (decreased from 243 yesterday) ALT:303 (decreased from 292 yesterday) (2) Retroperitoneal hematoma Current Visit: Yes Status: Acute Secondary to left heart cath complication Likely cause of hemorrhagic shock Dr. [place] completed covered stent placement in right external iliac artery yesterday Incisions sites are clean, intact, with no drainage 6 units RBCs transfused, last unit transfused yesterday morning Hgb:8.5 today Lasix 20mg IV this morning (3) Sepsis Current Visit: Yes Status: Acute Patient had fever, tachypnea, hypotension and borderline tachycardia while in ICU Sepsis was suspected the night prior when pt returned from heart cath. Urine was negative Influenza negative Blood cultures negative CXR was negative at that time CT abdomen/pelvis demonstrated a large right hematoma, mild patchy airspace opacities in lung bases Suspect sepsis-like presentation due to hemorrhagic shock due to retroperitoneal bleed from heart cath complications Elevated WBC (13.8 yesterday) likely due to stress reaction. WBC:12.6 today Hepatitis B positive Continue Levaquin (day 3), stop flagyl Continue to follow labs and vitals Qualifiers: Sepsis type: sepsis due to unspecified organism Qualified Code(s): A41.9 - Sepsis, unspecified organism (4) Unstable angina Current Visit: Yes Status: Acute Chest pain present on admission with ST elevations on V1, V2. Troponin was 0.00 Underwent left heart cath which was unremarkable Will follow cardio recommendations for management (5) Hypertension Current Visit: Yes Status: Chronic BP and vitals stable, continue to monitor Qualifiers: Hypertension type: essential hypertension Qualified Code(s): I10 - Essential (primary) hypertension (6) Tobacco abuse Current Visit: Yes Status: Chronic Nicotine patch ordered (7) DVT prophylaxis Current Visit: Yes Status: Acute Currently on Plavix Subjective Principal diagnosis: Chest pain; n/v; RP bleed Interval history: Pt currently on NC with oxygen saturation 94%. States he is feeling better than yesterday, but continues to have pain in the right side of his back. No other complaints at this time. Objective PUL Vital signs: Last Vital Signs Temp 98.1 F 05/28/16 23:48 Pulse 71 05/29/16 06:00 Resp 05/29/16 06:00 BP 118/81 02/09/17 06:00 Pulse Ox 91 L 05/29/16 06:00 General appearance: no acute distress Eyes: nonicteric ENT: oropharynx moist Neck: supple Effort: normal Auscultation: bilateral: rhonchi Cardiovascular: regular rate and rhythm Gastrointestinal: normoactive bowel sounds, tender (TTP diffusely), non- distended Extremities: no cyanosis, no edema, no clubbing, pink and warm Musculoskeletal: no deformities mood appropriate, affect normal Results - Laboratory Findings CBC and BMP: 05/29/16 02:58 05/29/16 02:59 ABG ABG pH 7.33 pH Units (7.32-7.45) 05/27/16 07:15 ABG pCO2 28 mmHg (35-45) L 05/27/16 07:15 ABG pO2 92 mmHg (85-104) 05/27/16 07:15 ABG O2 Saturation 97 % (95-98) 05/27/16 07:15 PT/INR, D-dimer PT 15.6 Seconds (9.4-12.1) H 05/28/16 03:23 D-Dimer 537 ng/mLFEU (0-500) H 05/26/16 14:19 Abnormal lab findings: Abnormal lab results WBC 12.6 K/mcL (4.3-11.1) H 05/29/16 02:58 RBC 2.85 M/mcL (4.19-5.50) L 05/29/16 02:58 Hgb 8.5 g/dL (12.9-16.9) L 05/29/16 02:58 Hct 25.0 % (37.5-50.1) L 05/29/16 02:58 RDW 17.0 % (11.5-14.5) H 05/29/16 02:58 Band Neutrophils % 18.0 % (0-4) H 05/28/16 03:23 Neutrophils # 10.3 K/mcL (1.6-8.9) H 05/29/16 02:58 Nucleated RBCs/100 WBC 0.2 /100 WBC (0) H 05/29/16 02:58 Platelet Estimate Slight Decrease (Normal) L 05/28/16 03:23 Anisocytosis 1+ (Not Present) A 05/27/16 07:40 PT 15.6 Seconds (9.4-12.1) H 05/28/16 03:23 D-Dimer 537 ng/mLFEU (0-500) H 05/26/16 14:19 ABG pCO2 28 mmHg (35-45) L 05/27/16 07:15 ABG HCO3 14.8 mEQ/L (21-27) L 05/27/16 07:15 ABG Total CO2 15.7 mEq/L (20-26) L 05/27/16 07:15 ABG Base Excess -9.9 mEq/L (-2.0 to 3.0) L 05/27/16 07:15 BUN 30 mg/dL (8-26) H 05/29/16 02:59 BUN/Creatinine Ratio 28 (6-26) H 05/29/16 02:59 Glucose 121 mg/dL (70-99) H 05/29/16 02:59 POC Glucose 149 (58-89) H 05/28/16 20:18 Total Bilirubin 3.5 mg/dL (0.2-1.2) H 05/29/16 02:59 Direct Bilirubin 3.0 mg/dL (0.0-0.5) H 05/27/16 00:08 Indirect Bilirubin 1.5 mg/dL (0.0-1.2) H 05/27/16 00:08 AST 215 Units/L (5-34) H 05/29/16 02:59 ALT 303 Units/L (0-55) H 05/29/16 02:59 Troponin I 0.04 ng/mL (0-0.03) H* 05/27/16 11:45 Ur Specific [place] > 1.030 (1.010-1.025) H 05/27/16 02:55 Urine Bilirubin Small (Negative) H 05/27/16 02:55 Salicylates < 5.0 mg/dL (15-30) L 05/26/16 21:18 Urine Opiates Screen Positive ng/mL (Gekxfm=931) H 05/27/16 02:55 Acetaminophen < 1.0 mcg/mL (10-30) L 05/27/16 11:45 U Benzodiazepines Scrn Positive ng/mL (Galczz=253) H 05/27/16 02:55 U Marijuana (THC) Screen Positive ng/mL (Cutoff = 50) H 05/27/16 02:55 Hep Bs Antigen Reactive (Nonreactive) H 05/27/16 11:45 Hep B Core IgM Ab Reactive (Nonreactive) H 05/27/16 11:45 - Clinical Findings Intake & Output: Intake & Output 05/28/16 05/28/16 05/29/16 15:59 23:59 07:59 Intake Total 450 / 450 200 / 200 300 / 300 Output Total 1800 / 1800 575 / 575 125 / 125 Balance -1350 / -1350 -375 / -375 175 / 175 Weight 66.769 kg
[2016-05-29] MEDS: *HR* Heparin 5,000 UNIT/ML VIAL SQ SCH ×2 (07:18→20:28)
--- NOTE | 2016-05-29 07:50 | Vascular/[facility] Progress Note ---
Date of Encounter: 05/28/16 Time of Encounter: 12:50 - Assessment and plan (1) Retroperitoneal hematoma Current Visit: Yes Status: Acute The patient is s/p right external iliac artery covered stent for retroperitoneal hemorrhage. Currently hemodynamically stable. His Hgb has drifted below 7 today. He received PRBCs today. Continued bleeding unlikely at this time. Continue to follow Hgb. Access site without hematoma. (2) Hypertension Current Visit: Yes Status: Chronic Qualifiers: Hypertension type: essential hypertension Qualified Code(s): I10 - Essential (primary) hypertension (3) Tobacco abuse Current Visit: Yes Status: Chronic (4) Acute blood loss anemia Current Visit: Yes Status: Acute The patient has acute posthemorrhagic blood loss anemia due to his retroperitoneal hematoma. This was treated with a covered stent. He is hemodynamically stable. He recevied PRBCs today. - Subjective Interval history: Without complaints today. Remains on Bipap. Alert, comfortable. Vital Signs, Last 4 Hours Temp Pulse Resp BP Pulse Ox 05/29/16 07:45 97.9 F 05/29/16 06:00 71 17 118/81 91 L 05/29/16 04:09 18 91 L 05/29/16 04:00 81 18 131/97 95 - Physical Examination General: Present: Conversant, No Apparent Distress HEENT: Present: Atraumatic, Pupils equal Neck: Absent: JVD Cardiac: Present: Reg Rate and Rhythm, Normal S1 and S2 Lungs: Present: Normal Breath Sounds Neuro: Present: Alert and responsive, No focal deficits noted, Motor nerves grossly intact, Sensory nerves grossly intact Vascular: Present: Normal capillary refill, Pulse, normal, Other (no femoral hematomas). Absent: Cyanosis, Edema Abdomen: Present: Soft, Other (tensder at right flank). Absent: Masses Skin: Present: No rashes noted on visualized skin Results 05/30/16 03:04 05/30/16 03:04 Lab Results, Last 24 hours 05/28/16 05/28/16 05/29/16 11:43 17:04 02:58 WBC 12.6 H Hgb 7.9 L 8.5 L Hct 22.5 L 25.0 L Plt Count 180 Sodium 135 L Potassium 4.4 Chloride 104 Carbon Dioxide 20 BUN 29 H Creatinine 1.14 Glucose 152 H Calcium 8.9 Magnesium 2.0 Total Bilirubin AST ALT Alkaline Phosphatase 05/29/16 05/29/16 02:59 02:59 WBC Hgb Hct Plt Count Sodium 138 Potassium 4.3 Chloride 104 Carbon Dioxide 24 BUN 30 H Creatinine 1.07 Glucose 121 H Calcium 9.2 Magnesium 1.8 Total Bilirubin 3.5 H AST 215 H ALT 303 H Alkaline Phosphatase 87 Consult Discharge Plan - Plan Referrals: Dara Perry MD [Primary Care Provider] -
[2016-05-29 08:13] LABS: ANA IgG by ELISA NONE DETECTED (None Detected)
[2016-05-29] MEDS: Nystatin SUSP 5 ML UD.LIQ PO SCH ×5 (08:18→20:28)
[2016-05-29] MEDS: *HR* LORazepam 2 MG/ML VIAL IVP PRN ×2 (08:38→20:28)
[2016-05-29] MEDS ORDERED: Metoclopramide 10 MG/2 ML VIAL IVP PRN (08:49)
[2016-05-29] MEDS ORDERED: Nitroglycerin 0.4 MG TAB.SUBL SL PRN (08:49)
[2016-05-29] MEDS ORDERED: Naloxone 0.4 MG/ML INJ IVP PRN (08:49)
[2016-05-29] MEDS ORDERED: *HR* Morphine 2 MG/ML SYRINGE IVP PRN (08:49)
[2016-05-29] MEDS ORDERED: Ondansetron 4 MG/2 ML VIAL IVP PRN (08:49)
[2016-05-29] MEDS: Nicotine 14 MG PATCH.TD24 TD SCH (08:59)
[2016-05-29] MEDS ORDERED: Pantoprazole 40 MG VIAL IVP SCH (09:00)
[2016-05-29] MEDS ORDERED: Nicotine 14 MG PATCH.TD24 TD SCH (09:00)
[2016-05-29] MEDS: Pantoprazole 40 MG VIAL IVP SCH (09:03)
[2016-05-29] MEDS ORDERED: Levofloxacin 500 MG/100 ML 500 MG/100 ML BAG IVPB SCH (17:00)
[2016-05-29] MEDS: Levofloxacin 500 MG/100 ML 500 MG/100 ML BAG IVPB SCH (17:54)
[2016-05-30] MEDS: *HR* Morphine 2 MG/ML SYRINGE IVP PRN ×2 (01:21→21:39)
[2016-05-30] MEDS: Acetaminophen 325 MG TABLET PO PRN ×2 (03:30→15:18)
[2016-05-30 03:36] LABS: Basophils % 0.2 %; Eosinophils % 0.3 %; Hematocrit 24.6 % (37.5-50.1); Hemoglobin 8.5 g/dL (12.9-16.9); Lymphocytes # 2.1 K/mcL (0.6-4.6); Lymphocytes % 13.4 %; Mean Corpuscular HGB Conc 34.6 g/dL (31.6-35.5); Mean Corpuscular Hemoglobin 30.7 pg (28.0-33.3); Mean Corpuscular Volume 88.8 fL (83.0-100.0); Monocytes # 1.8 K/mcL (0.0-1.3); Monocytes % 11.5 %; Neutrophils # 11.3 K/mcL (1.6-8.9); Nucleated Red Blood Cells 1.1 /100 WBC (0); Platelet Count 245 K/mcL (140-400); Red Blood Count 2.77 M/mcL (4.19-5.50); Red Cell Distribution Width 17.4 % (11.5-14.5); Segmented Neutrophils % 71.6 %
[2016-05-30 03:43] LABS: Ionized Calcium 1.14 mmol/L (1.15-1.35)
[2016-05-30 03:54] LABS: Magnesium 1.6 mg/dL (1.6-2.6); Phosphorous 2.4 mg/dL (2.3-4.7)
[2016-05-30 03:56] LABS: Alanine Aminotransferase 252 Units/L (0-55); Albumin 3.3 g/dL (3.5-5.0); Albumin/Globulin Ratio 1.4 (1.1-2.2); Alkaline Phosphatase 104 Units/L (38-126); Aspartate Amino Transferase 163 Units/L (5-34); BUN/Creatinine Ratio 34 (6-26); Bilirubin,Total 2.9 mg/dL (0.2-1.2); Blood Urea Nitrogen 33 mg/dL (8-26); Calcium 8.8 mg/dL (8.6-10.8); Carbon Dioxide 28 mEq/L (19-29); Chloride 106 mEq/L (98-109); Globulin 2.4 g/dL (2.4-3.5); Glucose 98 mg/dL (70-99); Osmolality,Calculated 301 (280-300); Potassium 3.8 mEq/L (3.5-4.5); Sodium 142 mEq/L (136-145); Total Protein 5.7 g/dL (6.0-8.3); eGFR For African Americans > 60 (> 60); eGFR For Non-African Americans > 60 (> 60)
[2016-05-30] MEDS: Ipratropium/Albuterol Neb 3 ML IH SCH ×3 (04:34→16:18)
[2016-05-30] MEDS: *HR* LORazepam 2 MG/ML VIAL IVP PRN (05:11)
--- NOTE | 2016-05-30 06:51 | Vascular/[facility] Progress Note ---
Date of Encounter: 05/29/16 Time of Encounter: 16:40 - Assessment and plan (1) Retroperitoneal hematoma Current Visit: Yes Status: Acute The patient is post operative day #2 after right external iliac artery covered stent for retroperitoneal hemorrhage. He remains hemodynamically stable. His Hgb has increased during the last 24 hours. He has no evidence of ongoing blood loss. Will sign off now. Patient may follow-up in 1 month in vascular clinic. (2) Hypertension Current Visit: Yes Status: Chronic Qualifiers: Hypertension type: essential hypertension Qualified Code(s): I10 - Essential (primary) hypertension (3) Tobacco abuse Current Visit: Yes Status: Chronic (4) Acute blood loss anemia Current Visit: Yes Status: Acute The patient has acute posthemorrhagic blood loss anemia due to his retroperitoneal hematoma. This was treated with a covered stent. He is hemodynamically stable. His hemoglobin has improved. - Subjective Interval history: The patient is alert. He reports decreased pain. He is no longer on Bipap. Vital Signs, Last 4 Hours Temp Pulse Resp BP Pulse Ox 05/30/16 06:00 83 22 128/93 92 L 05/30/16 04:35 24 93 L 05/30/16 04:19 80 24 136/84 96 05/30/16 04:15 98.4 F - Physical Examination General: Present: Conversant, No Apparent Distress HEENT: Present: Pupils equal Neck: Absent: JVD Cardiac: Present: Reg Rate and Rhythm, Normal S1 and S2 Lungs: Present: Normal Breath Sounds Neuro: Present: Alert and responsive, Motor nerves grossly intact, Sensory nerves grossly intact Vascular: Present: Normal capillary refill, Pulse, normal, Other (no groin hematoma). Absent: Cyanosis Abdomen: Present: Soft, Other (right lower quadrant tender with ecchymosis) Skin: Present: No rashes noted on visualized skin Musculoskeletal: Present: No Chest Wall Tenderness Results 05/30/16 03:04 05/30/16 03:04 Lab Results, Last 24 hours 05/30/16 05/30/16 05/30/16 03:04 03:04 03:04 WBC 15.8 H Hgb 8.5 L Hct 24.6 L Plt Count 245 Sodium 142 Potassium 3.8 Chloride 106 Carbon Dioxide 28 BUN 33 H Creatinine 0.97 Glucose 98 Calcium 8.8 Magnesium 1.6 Total Bilirubin 2.9 H AST 163 H ALT 252 H Alkaline Phosphatase 104 Consult Discharge Plan - Plan Referrals: Dara Perry MD [Primary Care Provider] -
--- NOTE | 2016-05-30 07:05 | Pulmonology Progress Note ---
Date of Encounter: 05/30/16 Time of Encounter: 06:30 Assessment and Plan (1) Transaminitis Current Visit: Yes Status: Acute Presented to ED with complaint of nausea, vomiting, abdominal pain x1 day prior to admission No history of liver disease, gallbladder disease or taking large amounts of medication Acetaminophen level was 3.0, Salicylate level <5.0, Ethyl Alcohol level <10 on admission GI consulted MRCP completed yesterday with no evidence of cholangitis Hepatitis B Positive AST:163 (decreased from 215 yesterday) ALT:252 (decreased from 303 yesterday) (2) Retroperitoneal hematoma Current Visit: Yes Status: Acute Secondary to left heart cath complication Likely cause of hemorrhagic shock Dr. [place] completed covered stent placement in right external iliac artery yesterday Incisions sites are clean, intact, with no drainage 6 units RBCs transfused, last unit transfused yesterday morning Hgb:8.5 today (3) Sepsis Current Visit: Yes Status: Acute Patient had fever, tachypnea, hypotension and borderline tachycardia while in ICU Sepsis was suspected the night prior when pt returned from heart cath. Urine was negative Influenza negative Blood cultures negative CXR was negative at that time CT abdomen/pelvis demonstrated a large right hematoma, mild patchy airspace opacities in lung bases Suspect sepsis-like presentation due to hemorrhagic shock due to retroperitoneal bleed from heart cath complications Elevated WBC (12.6 yesterday) likely due to stress reaction. WBC:15.8 today Hepatitis B positive Continue Levaquin (day 4) Continue to follow labs and vitals Qualifiers: Sepsis type: sepsis due to unspecified organism Qualified Code(s): A41.9 - Sepsis, unspecified organism (4) Unstable angina Current Visit: Yes Status: Acute Chest pain present on admission with ST elevations on V1, V2. Troponin was 0.00 Underwent left heart cath which was unremarkable Will follow cardio recommendations for management (5) Hypertension Current Visit: Yes Status: Chronic BP and vitals stable, continue to monitor Qualifiers: Hypertension type: essential hypertension Qualified Code(s): I10 - Essential (primary) hypertension (6) Tobacco abuse Current Visit: Yes Status: Chronic Nicotine patch ordered (7) DVT prophylaxis Current Visit: Yes Status: Acute Currently on Plavix Subjective Principal diagnosis: Chest pain; n/v; RP bleed Interval history: Pt currently on 4L NC with oxygen saturation 94%. Pt anxious on exam today, moving about the bed. Pt had taken NC off and oxygen saturation began to drop. Oxygen returned to baseline after supplementation was put back on. No other complaints at this time. Objective PUL Vital signs: Last Vital Signs Temp 98.4 F 05/30/16 04:15 Pulse 83 05/30/16 06:00 Resp 22 05/30/16 06:00 BP 128/93 05/30/16 06:00 Pulse Ox 92 L 05/30/16 06:00 General appearance: agitated Eyes: nonicteric ENT: oropharynx moist Neck: supple Effort: mildly labored Auscultation: bilateral: clear Cardiovascular: regular rate and rhythm Gastrointestinal: normoactive bowel sounds, soft, non-distended Extremities: no cyanosis, no edema, no clubbing, pink and warm Musculoskeletal: no deformities anxious Results - Laboratory Findings CBC and BMP: 05/30/16 03:04 05/30/16 03:04 ABG ABG pH 7.33 pH Units (7.32-7.45) 05/27/16 07:15 ABG pCO2 28 mmHg (35-45) L 05/27/16 07:15 ABG pO2 92 mmHg (85-104) 05/27/16 07:15 ABG O2 Saturation 97 % (95-98) 05/27/16 07:15 PT/INR, D-dimer PT 15.6 Seconds (9.4-12.1) H 05/28/16 03:23 D-Dimer 537 ng/mLFEU (0-500) H 05/26/16 14:19 Abnormal lab findings: Abnormal lab results WBC 15.8 K/mcL (4.3-11.1) H 05/30/16 03:04 RBC 2.77 M/mcL (4.19-5.50) L 05/30/16 03:04 Hgb 8.5 g/dL (12.9-16.9) L 05/30/16 03:04 Hct 24.6 % (37.5-50.1) L 05/30/16 03:04 RDW 17.4 % (11.5-14.5) H 05/30/16 03:04 Band Neutrophils % 18.0 % (0-4) H 05/28/16 03:23 Neutrophils # 11.3 K/mcL (1.6-8.9) H 05/30/16 03:04 Monocytes # 1.8 K/mcL (0.0-1.3) H 05/30/16 03:04 Nucleated RBCs/100 WBC 1.1 /100 WBC (0) H 05/30/16 03:04 Platelet Estimate Slight Decrease (Normal) L 05/28/16 03:23 Anisocytosis 1+ (Not Present) A 05/27/16 07:40 PT 15.6 Seconds (9.4-12.1) H 05/28/16 03:23 D-Dimer 537 ng/mLFEU (0-500) H 05/26/16 14:19 ABG pCO2 28 mmHg (35-45) L 05/27/16 07:15 ABG HCO3 14.8 mEQ/L (21-27) L 05/27/16 07:15 ABG Total CO2 15.7 mEq/L (20-26) L 05/27/16 07:15 ABG Base Excess -9.9 mEq/L (-2.0 to 3.0) L 05/27/16 07:15 BUN 33 mg/dL (8-26) H 05/30/16 03:04 BUN/Creatinine Ratio 34 (6-26) H 05/30/16 03:04 POC Glucose 145 (58-89) H 05/29/16 19:52 Calculated Osmolality 301 (280-300) H 05/30/16 03:04 Ionized Calcium 1.14 mmol/L (1.15-1.35) L 05/30/16 03:04 Total Bilirubin 2.9 mg/dL (0.2-1.2) H 05/30/16 03:04 Direct Bilirubin 3.0 mg/dL (0.0-0.5) H 05/27/16 00:08 Indirect Bilirubin 1.5 mg/dL (0.0-1.2) H 05/27/16 00:08 AST 163 Units/L (5-34) H 05/30/16 03:04 ALT 252 Units/L (0-55) H 05/30/16 03:04 Troponin I 0.04 ng/mL (0-0.03) H* 05/27/16 11:45 Serum Total Protein 5.7 g/dL (6.0-8.3) L 05/30/16 03:04 Albumin 3.3 g/dL (3.5-5.0) L 05/30/16 03:04 Ur Specific [place] > 1.030 (1.010-1.025) H 05/27/16 02:55 Urine Bilirubin Small (Negative) H 05/27/16 02:55 Salicylates < 5.0 mg/dL (15-30) L 05/26/16 21:18 Urine Opiates Screen Positive ng/mL (Dcopjr=648) H 05/27/16 02:55 Acetaminophen < 1.0 mcg/mL (10-30) L 05/27/16 11:45 U Benzodiazepines Scrn Positive ng/mL (Yxylvb=004) H 05/27/16 02:55 U Marijuana (THC) Screen Positive ng/mL (Cutoff = 50) H 05/27/16 02:55 Hep Bs Antigen Reactive (Nonreactive) H 05/27/16 11:45 Hep Bs Ag Confirmation POSITIVE (Non Confirmed) A 05/27/16 11:45 Hep B Core IgM Ab Reactive (Nonreactive) H 05/27/16 11:45 - Clinical Findings Intake & Output: Intake & Output 05/29/16 05/29/16 05/30/16 15:59 23:59 07:59 Intake Total 240 / 240 100 / 100 390 / 390 Output Total 1500 / 1500 400 / 400 200 / 200 Balance -1260 / -1260 -300 / -300 190 / 190 Consult Discharge Plan - Plan Referrals: Dara Perry MD [Primary Care Provider] -
[2016-05-30] MEDS: Nicotine 14 MG PATCH.TD24 TD SCH (07:47)
[2016-05-30] MEDS: Pantoprazole 40 MG VIAL IVP SCH (07:47)
[2016-05-30] MEDS: Nystatin SUSP 5 ML UD.LIQ PO SCH ×4 (07:48→21:39)
[2016-05-30] MEDS: *HR* Heparin 5,000 UNIT/ML VIAL SQ SCH ×2 (07:50→19:41)
[2016-05-30 07:58] LABS: Hepatitis B Core Ab Total POSITIVE (Negative)
[2016-05-30 08:09] LABS: EBV Ab(Viral Capsid Ag)VCA-IgM <10.0 U/mL (0.0-43.9)
--- NOTE | 2016-05-30 16:27 | Internal Med Progress Note ---
Date of Encounter: 05/30/16 Time of Encounter: 11:45 - Assessment and plan (1) Chest pain Current Visit: Yes Status: Resolved Qualifiers: Chest pain type: precordial pain Qualified Code(s): R07.2 - Precordial pain (2) Retroperitoneal hematoma Current Visit: Yes Status: Acute (3) Sepsis Current Visit: Yes Status: Acute Qualifiers: Sepsis type: sepsis due to unspecified organism Qualified Code(s): A41.9 - Sepsis, unspecified organism (4) Transaminitis Current Visit: Yes Status: Acute (5) Hypertension Current Visit: Yes Status: Chronic Qualifiers: Hypertension type: essential hypertension Qualified Code(s): I10 - Essential (primary) hypertension (6) Tobacco abuse Current Visit: Yes Status: Chronic (7) Pneumonia Current Visit: Yes Status: Acute Qualifiers: Pneumonia type: due to unspecified organism Laterality: unspecified laterality Lung location: unspecified part of lung Qualified Code(s): J18.9 - Pneumonia, unspecified organism - Subjective Interval history: Patient seen and examined at bedside Initial encounter with this patient Just transferred to floors from ICU Labs, radiology, EMR have been personally reviewed 56 Y/O M being managed for Sepsis (possible source is pneumonia), Non- obstructive CAD s/p LHC complicated by retroperitoneal bleed s/p covered stent placement in right external iliac artery 05/28, Transaminitis possibly secondary to Acute Hep B, MRCP has been done with no evidence of cholangitis, acute blood loss anemia s/p 6 units RBC transfusion, with stable Hb now, Acute respiratory failure s/t volume and PNA, on BIPAP initially but now stable on room air, supplemental O2 by nasal cannula Seen at bedside Denies new complains, States I just want to sleep Physical Exam VSS-Afebrile since admission, BP WNL Neuro: Asleep, but rousable, oriented X3, in no form of distress HEENT: Moist oral mucosa Chest: CTAB Heart: S1, S2 only, no m/g/r Abdomen: Soft, not tender, no palpably enlarged organs Extremities: No edema Labs and Imaging reviewed Leukocytosis with left shift possibly from steroids, azotemia, with normal creatinine, Transaminitis is downteending Assessment/Plan Continue current care, monitor chem. PT/OT review for d/c disposition. - Constitutional Vitals: Temp Pulse Resp BP Pulse Ox 98.4 F 90 16 142/84 94 L 05/30/16 16:01 05/30/16 16:01 05/30/16 16:01 05/30/16 16:01 05/30/16 16:01 General appearance: Present: cooperative, A&O X 3, pleasant, no acute distress, answers questions appropriately Internal Medicine: Result - Labs CBC & Chem 7: 05/30/16 03:04 05/30/16 03:04 Labs: Short CBC 05/30/16 Range/Units 03:04 WBC 15.8 H (4.3-11.1) K/mcL Hgb 8.5 L (12.9-16.9) g/dL Hct 24.6 L (37.5-50.1) % Plt Count 245 (140-400) K/mcL Neutrophils # 11.3 H (1.6-8.9) K/mcL BMP 05/30/16 03:04 Sodium 142 Potassium 3.8 Chloride 106 Carbon Dioxide 28 BUN 33 H Creatinine 0.97 Glucose 98 Calcium 8.8 Liver Function 05/30/16 Range/Units 03:04 Total Bilirubin 2.9 H (0.2-1.2) mg/dL AST 163 H (5-34) Units/L ALT 252 H (0-55) Units/L Alkaline Phosphatase 104 (38-126) Units/L Albumin 3.3 L (3.5-5.0) g/dL - ABG Interpretation ABG results: ABG ABG pH 7.33 pH Units (7.32-7.45) 05/27/16 07:15 ABG pCO2 28 mmHg (35-45) L 05/27/16 07:15 ABG pO2 92 mmHg (85-104) 05/27/16 07:15 ABG O2 Saturation 97 % (95-98) 05/27/16 07:15 PT/INR, D-dimer PT 15.6 Seconds (9.4-12.1) H 05/28/16 03:23 D-Dimer 537 ng/mLFEU (0-500) H 05/26/16 14:19 Consult Discharge Plan - Plan Referrals: Dara Perry MD [Primary Care Provider] -
[2016-05-30] MEDS: Levofloxacin 500 MG/100 ML 500 MG/100 ML BAG IVPB SCH (16:49)
[2016-05-31] MEDS: Ipratropium/Albuterol Neb 3 ML IH SCH ×5 (00:07→22:34)
[2016-05-31 06:58] LABS: Basophils # 0.1 K/mcL (0.0-0.2); Basophils % 0.5 %; Eosinophils # 0.6 K/mcL (0.0-0.6); Eosinophils % 3.5 %; Hematocrit 28.8 % (37.5-50.1); Hemoglobin 9.9 g/dL (12.9-16.9); Lymphocytes % 10.9 %; Mean Corpuscular HGB Conc 34.4 g/dL (31.6-35.5); Mean Corpuscular Hemoglobin 30.9 pg (28.0-33.3); Mean Platelet Volume 10.3 fL (9.4-12.4); Monocytes # 2.8 K/mcL (0.0-1.3); Monocytes % 15.3 %; Neutrophils # 11.9 K/mcL (1.6-8.9); Nucleated Red Blood Cells 0.2 /100 WBC (0); Platelet Count 293 K/mcL (140-400); Red Cell Distribution Width 18.3 % (11.5-14.5); Segmented Neutrophils % 65.8 %
[2016-05-31 07:11] LABS: Alanine Aminotransferase 228 Units/L (0-55); Albumin 3.3 g/dL (3.5-5.0); Albumin/Globulin Ratio 1.2 (1.1-2.2); Alkaline Phosphatase 100 Units/L (38-126); Aspartate Amino Transferase 151 Units/L (5-34); BUN/Creatinine Ratio 29 (6-26); Bilirubin,Total 3.1 mg/dL (0.2-1.2); Blood Urea Nitrogen 24 mg/dL (8-26); Calcium 9.1 mg/dL (8.6-10.8); Carbon Dioxide 27 mEq/L (19-29); Chloride 103 mEq/L (98-109); Globulin 2.7 g/dL (2.4-3.5); Glucose 93 mg/dL (70-99); Osmolality,Calculated 292 (280-300); Potassium 3.6 mEq/L (3.5-4.5); Sodium 139 mEq/L (136-145); eGFR For African Americans > 60 (> 60); eGFR For Non-African Americans > 60 (> 60)
[2016-05-31] MEDS: Nystatin SUSP 5 ML UD.LIQ PO SCH ×4 (07:40→22:37)
[2016-05-31] MEDS: *HR* Heparin 5,000 UNIT/ML VIAL SQ SCH ×2 (07:40→18:55)
[2016-05-31] MEDS: Nicotine 14 MG PATCH.TD24 TD SCH (07:41)
[2016-05-31] MEDS: *HR* Morphine 2 MG/ML SYRINGE IVP PRN ×3 (07:42→22:37)
[2016-05-31] MEDS: *HR* LORazepam 2 MG/ML VIAL IVP PRN (11:36)
--- NOTE | 2016-05-31 16:09 | Internal Med Progress Note ---
Date of Encounter: 05/31/16 Time of Encounter: 12:45 - Assessment and plan (1) Chest pain Current Visit: Yes Status: Resolved Assessment and plan: Resolved Qualifiers: Chest pain type: precordial pain Qualified Code(s): R07.2 - Precordial pain (2) Retroperitoneal hematoma Current Visit: Yes Status: Acute Assessment and plan: Resolved (3) Sepsis Current Visit: Yes Status: Acute Assessment and plan: Patient with persistent and worsening leukocytosis NO fever up till time of review Sepsis diagnosis was from tachycardia, WBC and Pneumonia in ICU Patient continues to have O2 requirement Today is day 5/ of levaquin Will continue to monitor May need to repeat blood, urine cultures and imaging if patient spikes a fever Cultures negative till date Qualifiers: Sepsis type: sepsis due to unspecified organism Qualified Code(s): A41.9 - Sepsis, unspecified organism (4) Pneumonia Current Visit: Yes Status: Acute Assessment and plan: As above For O2 qualification Qualifiers: Pneumonia type: due to unspecified organism Laterality: unspecified laterality Lung location: unspecified part of lung Qualified Code(s): J18.9 - Pneumonia, unspecified organism (5) Transaminitis Current Visit: Yes Status: Acute Assessment and plan: Improving Secondary to Hep B infection MRCP negative (6) Hypertension Current Visit: Yes Status: Chronic Qualifiers: Hypertension type: essential hypertension Qualified Code(s): I10 - Essential (primary) hypertension (7) Tobacco abuse Current Visit: Yes Status: Chronic - Subjective Interval history: Patient seen and examined at bedside Labs, radiology, EMR have been personally reviewed 56 Y/O M being managed for Sepsis (possible source is pneumonia), Non- obstructive CAD s/p LHC complicated by retroperitoneal bleed s/p covered stent placement in right external iliac artery 05/28, Transaminitis possibly secondary to Acute Hep B, MRCP has been done with no evidence of cholangitis, acute blood loss anemia s/p 6 units RBC transfusion, with stable Hb now, Acute respiratory failure s/t volume and PNA, on BIPAP initially but now stable on room air, supplemental O2 by nasal cannula Seen at bedside He has been complaining of back pain, states it is chronic He is ambulatory and still hypoxic, not on home O2, he is otherwise stable Of note, WBC continues to trend up, no obvious source of infection, patient denies Urinary symptoms, he is on coverage for HCAP and is not having increasing oxygen requirements. He has not has fever in this admission up till time of review - Constitutional Vitals: Temp Pulse Resp BP Pulse Ox 100.0 F H 89 18 143/81 92 L 05/31/16 15:44 05/31/16 15:44 05/31/16 15:44 05/31/16 15:44 05/31/16 15:44 General appearance: Present: cooperative, A&O X 3, pleasant, no acute distress, answers questions appropriately Exam: Physical Exam VSS-Afebrile since admission, BP WNL. Requiring 2-3L of O2 Neuro: Awake, alert, ambulatory, no complains HEENT: Moist oral mucosa Chest: CTAB Heart: S1, S2 only, no m/g/r Abdomen: Soft, not tender, no palpably enlarged organs Back exam: No rash, no spine or para-spinal tenderness, no CVA tenderness Extremities: No edema - Head Head exam: Present: atraumatic, normocephalic - Eye Eye exam: Present: PERRL, conjuntiva pink, sclera anicteric Pupils: Present: PERRL Internal Medicine: Result - Labs CBC & Chem 7: 05/31/16 06:28 05/31/16 06:28 Labs: Short CBC 05/31/16 Range/Units 06:28 WBC 18.0 H (4.3-11.1) K/mcL Hgb 9.9 L (12.9-16.9) g/dL Hct 28.8 L (37.5-50.1) % Plt Count 293 (140-400) K/mcL Neutrophils # 11.9 H (1.6-8.9) K/mcL BMP 05/31/16 06:28 Sodium 139 Potassium 3.6 Chloride 103 Carbon Dioxide 27 BUN 24 Creatinine 0.84 Glucose 93 Calcium 9.1 Liver Function 05/31/16 Range/Units 06:28 Total Bilirubin 3.1 H (0.2-1.2) mg/dL AST 151 H (5-34) Units/L ALT 228 H (0-55) Units/L Alkaline Phosphatase 100 (38-126) Units/L Albumin 3.3 L (3.5-5.0) g/dL - ABG Interpretation ABG results: ABG ABG pH 7.33 pH Units (7.32-7.45) 05/27/16 07:15 ABG pCO2 28 mmHg (35-45) L 05/27/16 07:15 ABG pO2 92 mmHg (85-104) 05/27/16 07:15 ABG O2 Saturation 97 % (95-98) 05/27/16 07:15 PT/INR, D-dimer PT 15.6 Seconds (9.4-12.1) H 05/28/16 03:23 D-Dimer 537 ng/mLFEU (0-500) H 05/26/16 14:19 Consult Discharge Plan - Plan Referrals: Dara Perry MD [Primary Care Provider] -
[2016-05-31] MEDS: Acetaminophen 325 MG TABLET PO PRN (16:18)
[2016-05-31] MEDS: Levofloxacin 500 MG/100 ML 500 MG/100 ML BAG IVPB SCH (16:18)
[2016-06-01] MEDS: Ipratropium/Albuterol Neb 3 ML IH SCH ×4 (04:21→22:14)
[2016-06-01] MEDS: Nystatin SUSP 5 ML UD.LIQ PO SCH ×4 (07:43→20:59)
[2016-06-01] MEDS: *HR* Heparin 5,000 UNIT/ML VIAL SQ SCH ×2 (07:43→17:29)
[2016-06-01] MEDS: Nicotine 14 MG PATCH.TD24 TD SCH (07:44)
[2016-06-01] MEDS: *HR* Morphine 2 MG/ML SYRINGE IVP PRN ×2 (07:45→17:39)
[2016-06-01 08:25] LABS: Basophils # 0.1 K/mcL (0.0-0.2); Basophils % 0.3 %; Eosinophils # 0.6 K/mcL (0.0-0.6); Eosinophils % 2.7 %; Hematocrit 31.2 % (37.5-50.1); Hemoglobin 10.8 g/dL (12.9-16.9); Immature Granulocytes % 3.6 % (0-4); Lymphocytes # 2.3 K/mcL (0.6-4.6); Lymphocytes % 10.4 %; Mean Corpuscular HGB Conc 34.6 g/dL (31.6-35.5); Mean Corpuscular Hemoglobin 30.7 pg (28.0-33.3); Mean Corpuscular Volume 88.6 fL (83.0-100.0); Mean Platelet Volume 9.9 fL (9.4-12.4); Monocytes # 3.4 K/mcL (0.0-1.3); Monocytes % 15.5 %; Neutrophils # 14.7 K/mcL (1.6-8.9); Platelet Count 349 K/mcL (140-400); Red Blood Count 3.52 M/mcL (4.19-5.50); Red Cell Distribution Width 18.1 % (11.5-14.5); Segmented Neutrophils % 67.5 %
[2016-06-01 08:42] LABS: Albumin 3.3 g/dL (3.5-5.0); Albumin/Globulin Ratio 1.1 (1.1-2.2); Bilirubin,Indirect 1.4 mg/dL (0.0-1.2); Bilirubin,Total 3.4 mg/dL (0.2-1.2); Globulin 2.9 g/dL (2.4-3.5); Total Protein 6.2 g/dL (6.0-8.3)
--- NOTE | 2016-06-01 09:52 | Internal Med Progress Note ---
Date of Encounter: 06/01/16 Time of Encounter: 09:30 - Assessment and plan (1) Chest pain Current Visit: Yes Status: Resolved Assessment and plan: Resolved Qualifiers: Chest pain type: precordial pain Qualified Code(s): R07.2 - Precordial pain (2) Retroperitoneal hematoma Current Visit: Yes Status: Acute Assessment and plan: Abd/Pelvis/Chest CT with new small R pleural effusion and atelectasis L ground glass nodules, mesenteric edema, interval increase in heterogenous collection in retroperitoneal and intraperitoneal cavity, with mass effect on R kidney and colon Vascular surgery has been consulted, spoke with Dr. Auguste on the phone (3) Sepsis Current Visit: Yes Status: Acute Assessment and plan: Patient with persistent and worsening leukocytosis Spiked fever overnight Tmax 100.9 05/31 Patient has been on levaquin for pneumonia Day 09/24 today Patient continues to have O2 requirement I have sent for repeat blood, urine cultures and toro CT scan for any abscesses UA is negative In the meantime, will continue levaquin until new source is evident or cultures are back Qualifiers: Sepsis type: sepsis due to unspecified organism Qualified Code(s): A41.9 - Sepsis, unspecified organism (4) Pneumonia Current Visit: Yes Status: Acute Assessment and plan: As above For O2 qualification Qualifiers: Pneumonia type: due to unspecified organism Laterality: unspecified laterality Lung location: unspecified part of lung Qualified Code(s): J18.9 - Pneumonia, unspecified organism (5) Transaminitis Current Visit: Yes Status: Acute Assessment and plan: Improving Secondary to Hep B infection MRCP negative (6) Hypertension Current Visit: Yes Status: Chronic Qualifiers: Hypertension type: essential hypertension Qualified Code(s): I10 - Essential (primary) hypertension (7) Tobacco abuse Current Visit: Yes Status: Chronic - Subjective Interval history: Patient seen and examined at bedside Labs, radiology, EMR have been personally reviewed 56 Y/O M being managed for Sepsis (possible source is pneumonia), Non- obstructive CAD s/p LHC complicated by retroperitoneal bleed s/p covered stent placement in right external iliac artery 05/28, Transaminitis possibly secondary to Acute Hep B, MRCP has been done with no evidence of cholangitis, acute blood loss anemia s/p 6 units RBC transfusion, with stable Hb now, Acute respiratory failure s/t volume and PNA, on BIPAP initially but now stable on room air, supplemental O2 by nasal cannula Seen at bedside with spouse He is ambulatory and still hypoxic, not on home O2, he is otherwise stable Of note, WBC continues to trend up, no obvious source of infection Patient developed fevers yesterday night, Tmax 100.9 send sepsis work up and Toro-CT scan - Constitutional Vitals: Temp Pulse Resp BP Pulse Ox 98.1 F 82 17 123/79 92 L 06/01/16 06:52 06/01/16 06:52 06/01/16 09:04 06/01/16 06:52 06/01/16 09:04 General appearance: Present: cooperative, A&O X 3, pleasant, no acute distress, answers questions appropriately - Head Head exam: Present: atraumatic, normocephalic - Eye Eye exam: Present: PERRL, conjuntiva pink, sclera anicteric Pupils: Present: PERRL - Neck Neck exam general surgery: Present: supple, trachea midline. Absent: lymphadenopathy - Respiratory Respiratory exam: Present: CTAB. Absent: accessory muscle use, rales, rhonchi, wheezes - GI/Abdominal GI/Abdominal exam: Present: normal bowel sounds, soft, no peritoneal signs. Absent: distended, tenderness - Additional comments: Right groin with echymosis, which patient states look worse than prior - Extremities Exam Extremities exam: Present: warm, radial pulses palpable and symetrical. Absent : calf tenderness, cyanotic, pedal edema - Neurological Exam Neurological exam: Present: CN II-XII intact, oriented X3, no focal deficits. Absent: pronater drift, facial droop, speech deficit - Skin Skin exam: Present: dry Internal Medicine: Result - Labs CBC & Chem 7: 06/01/16 08:05 05/31/16 06:28 Labs: Short CBC 06/01/16 Range/Units 08:05 WBC 21.7 H (4.3-11.1) K/mcL Hgb 10.8 L (12.9-16.9) g/dL Hct 31.2 L (37.5-50.1) % Plt Count 349 (140-400) K/mcL Neutrophils # 14.7 H (1.6-8.9) K/mcL Liver Function 06/01/16 Range/Units 08:05 Total Bilirubin 3.4 H (0.2-1.2) mg/dL Direct Bilirubin 2.0 H (0.0-0.5) mg/dL AST 112 H (5-34) Units/L ALT 187 H (0-55) Units/L Alkaline Phosphatase 95 (38-126) Units/L Albumin 3.3 L (3.5-5.0) g/dL - ABG Interpretation ABG results: ABG ABG pH 7.33 pH Units (7.32-7.45) 05/27/16 07:15 ABG pCO2 28 mmHg (35-45) L 05/27/16 07:15 ABG pO2 92 mmHg (85-104) 05/27/16 07:15 ABG O2 Saturation 97 % (95-98) 05/27/16 07:15 PT/INR, D-dimer PT 15.6 Seconds (9.4-12.1) H 05/28/16 03:23 D-Dimer 537 ng/mLFEU (0-500) H 05/26/16 14:19 Consult Discharge Plan - Plan Referrals: Dara Perry MD [Primary Care Provider] -
[2016-06-01 13:24] LABS: Bilirubin,Urine Negative (Negative); Blood,Urine Negative (Negative); Clarity,Urine Cloudy (Clear); Color,Urine Dark Yellow (Yellow); Glucose,Urine (UA) Normal (Normal); Ketones,Urine Negative (Negative); Leukocyte Esterase,Urine Negative (Negative); Nitrite,Urine Negative (Negative); PH,Urine 6.5 pH Units (5.0-8.0); Protein,Urine Negative (Neg-Trace); Specific Gravity,Urine 1.025 (1.010-1.025); Urobilinogen,Urine Normal (Normal)
--- NOTE | 2016-06-01 15:31 | Vascular/[facility] Progress Note ---
Date of Encounter: 06/01/16 Time of Encounter: 15:29 - Assessment and plan (1) Retroperitoneal hematoma Current Visit: Yes Status: Acute Increase in size of right retroperitoneal hematoma compared to initial exam performed last week when the patient was actively bleeding. At this point this not represent ongoing hemorrhage. I suggest this is related to the previous blood loss with resultant soft tissue edema and liver malfunction and coagulopathy. I suggested a conservative course for the time being. The large retroperitoneal hematoma is also contributing to the patient's elevated white count and fever. The blood transfusions of 6 units also contributed to the patient's elevated white count. I will ask Dr. Spain to reevaluate the patient tomorrow. If there are signs of anemia or hemodynamic instability due to blood loss a repeat CT Angiogram would be recommended. At this time I do not recommend repeat angiography. - Subjective Interval history: I was called by the hospitalist service earlier today to reevaluate the patient. The patient had been seen as an emergency by Dr. Spain earlier in the week. Patient had developed a large retroperitoneal hematoma from right groin puncture following a cardiac catheterization. Dr. Spain needed to put a covered stent into the distal right external iliac artery in order to seal the source of bleeding. The patient had been stable and Dr. Spain had signed off the case this past Thursday. Now the patient had developed fever and multiple CT scans were obtained to evaluate for possible sources of sepsis. This CT scan performed this morning demonstrated an increase in the size of the right retroperitoneal hematoma. The patient also has had an increase in his white blood cell count up to 21.7. Of note the hemoglobin has remained stable. On my visit with the patient today he complains of a sense of fullness and pain in the right hemiabdomen in particular in the right lower quadrant. He denies any nausea or vomiting. The patient does have a sense of fever. Vital Signs, Last 4 Hours Temp Pulse Resp BP Pulse Ox 06/01/16 15:11 18 91 L 06/01/16 12:05 98.1 F 104 18 129/67 93 L - Physical Examination General: Present: Conversant, Other (Patient is in mild discomfort and is tachypneic.) HEENT: Present: Atraumatic, Normocephaly Neck: Absent: JVD Cardiac: Present: Reg Rate and Rhythm, Normal S1 and S2, No Murmur. Absent: Irregular Rhythm Lungs: Present: No Wheeze, Rales, Rhonchi, Other (Tachypneic) Neuro: Present: Alert and responsive Vascular: Present: Normal capillary refill Abdomen: Present: Soft. Absent: Non-tender (The patient has tenderness on palpation of the right hemiabdomen below there is no sign of guarding or peritoneal findings. The abdomen is not distended. The left hemiabdomen is asymptomatic.) Skin: Present: Other (The patient has signs of previous puncture at the groin levels from his cardiac catheterization and endovascular intervention for the right external iliac artery bleeding site.) Results 06/01/16 08:05 05/31/16 06:28 Lab Results, Last 24 hours 06/01/16 06/01/16 08:05 08:05 WBC 21.7 H Hgb 10.8 L Hct 31.2 L Plt Count 349 Total Bilirubin 3.4 H AST 112 H ALT 187 H Alkaline Phosphatase 95 - Imaging / Other Tests CT/CTA: report reviewed, image reviewed (I have reviewed this CT scan performed earlier this morning and also compared it to the CT scan performed earlier this week when the patient had active bleeding. I do see that the right retroperitoneal sided hematoma hasn't expanded. However I see no signs of active bleeding. This correlates with the patient's hemodynamic status as well as a stable hemoglobin. He has not had any recent transfusions to obscure this finding.) Consult Discharge Plan - Plan Referrals: Dara Perry MD [Primary Care Provider] -
[2016-06-01] MEDS ORDERED: Vancomycin 1,000 MG in D5% in Water 250 ML IVPB SCH (17:00)
[2016-06-01] MEDS: Aztreonam 2,000 MG in D5% in Water (Mini-Bag+) 100 ML IVPB SCH (17:21)
[2016-06-01] MEDS: Vancomycin 1,000 MG in D5% in Water 250 ML IVPB SCH (17:43)
[2016-06-02] MEDS: *HR* Morphine 2 MG/ML SYRINGE IVP PRN ×3 (00:11→17:19)
[2016-06-02] MEDS: Aztreonam 2,000 MG in D5% in Water (Mini-Bag+) 100 ML IVPB SCH ×4 (00:14→17:18)
[2016-06-02] MEDS: Ipratropium/Albuterol Neb 3 ML IH SCH ×4 (04:27→22:36)
[2016-06-02] MEDS: Vancomycin 1,000 MG in D5% in Water 250 ML IVPB SCH ×2 (05:50→17:17)
[2016-06-02] MEDS: *HR* Heparin 5,000 UNIT/ML VIAL SQ SCH ×2 (05:56→17:22)
[2016-06-02 07:18] LABS: Basophils # 0.1 K/mcL (0.0-0.2); Basophils % 0.3 %; Eosinophils # 0.8 K/mcL (0.0-0.6); Eosinophils % 4.4 %; Hematocrit 30.4 % (37.5-50.1); Hemoglobin 10.3 g/dL (12.9-16.9); Immature Granulocytes % 3.9 % (0-4); Lymphocytes % 11.3 %; Mean Corpuscular HGB Conc 33.9 g/dL (31.6-35.5); Mean Corpuscular Hemoglobin 30.1 pg (28.0-33.3); Mean Corpuscular Volume 88.9 fL (83.0-100.0); Mean Platelet Volume 9.9 fL (9.4-12.4); Monocytes # 2.7 K/mcL (0.0-1.3); Monocytes % 15.4 %; Neutrophils # 11.2 K/mcL (1.6-8.9); Platelet Count 397 K/mcL (140-400); Red Blood Count 3.42 M/mcL (4.19-5.50); Red Cell Distribution Width 18.2 % (11.5-14.5); Segmented Neutrophils % 64.7 %
[2016-06-02 07:21] LABS: BUN/Creatinine Ratio 23 (6-26); Blood Urea Nitrogen 19 mg/dL (8-26); Calcium 8.6 mg/dL (8.6-10.8); Carbon Dioxide 28 mEq/L (19-29); Chloride 99 mEq/L (98-109); Glucose 125 mg/dL (70-99); Osmolality,Calculated 282 (280-300); Potassium 3.4 mEq/L (3.5-4.5); Sodium 134 mEq/L (136-145); eGFR For African Americans > 60 (> 60); eGFR For Non-African Americans > 60 (> 60)
[2016-06-02 07:35] LABS: Activated Partial Thrombo Time 27.8 Seconds (26.0-36.0)
[2016-06-02 07:38] LABS: INR 1.4; Prothrombin Time 15.2 Seconds (9.4-12.1)
[2016-06-02 08:11] LABS: Platelet Estimate Normal (Normal)
[2016-06-02 08:13] LABS: Target Cells 1+ (Not Present)
[2016-06-02 08:14] LABS: Anisocytosis 1+ (Not Present)
[2016-06-02 08:15] LABS: HBV Quant Interpretation DETECTED (Not Detected)
[2016-06-02 08:19] LABS: Poikilocytosis 1+ (Not Present)
[2016-06-02] MEDS: Nicotine 14 MG PATCH.TD24 TD SCH (09:50)
[2016-06-02] MEDS: Nystatin SUSP 5 ML UD.LIQ PO SCH ×4 (09:51→20:08)
[2016-06-02] MEDS ORDERED: Sennosides 8.6 MG TABLET PO ONE (10:14)
--- NOTE | 2016-06-02 10:14 | Internal Med Progress Note ---
Date of Encounter: 06/02/16 Time of Encounter: 09:30 - Assessment and plan (1) Chest pain Current Visit: Yes Status: Resolved Assessment and plan: Resolved Qualifiers: Chest pain type: precordial pain Qualified Code(s): R07.2 - Precordial pain (2) Retroperitoneal hematoma Current Visit: Yes Status: Acute Assessment and plan: Abd/Pelvis/Chest CT with new small R pleural effusion and atelectasis L ground glass nodules, mesenteric edema, interval increase in heterogenous collection in retroperitoneal and intraperitoneal cavity, with mass effect on R kidney and colon Vascular surgery has been consulted, following Hb is stable (3) Sepsis Current Visit: Yes Status: Acute Assessment and plan: Patient with persistent and worsening leukocytosis Still having fever, Tmax 101.9 06/01 1534 Patient has received 7 days of Levofloxacin Started on Aztreonam and vancomycin for broad coverage, pending repeat blood cultures 06/01/16 Will continue until blood culture is reported BP is stable Qualifiers: Sepsis type: sepsis due to unspecified organism Qualified Code(s): A41.9 - Sepsis, unspecified organism (4) Pneumonia Current Visit: Yes Status: Acute Assessment and plan: As above For O2 qualification Qualifiers: Pneumonia type: due to unspecified organism Laterality: unspecified laterality Lung location: unspecified part of lung Qualified Code(s): J18.9 - Pneumonia, unspecified organism (5) Transaminitis Current Visit: Yes Status: Acute Assessment and plan: Improving Secondary to Hep B infection MRCP negative (6) Hypertension Current Visit: Yes Status: Chronic Qualifiers: Hypertension type: essential hypertension Qualified Code(s): I10 - Essential (primary) hypertension (7) Tobacco abuse Current Visit: Yes Status: Chronic - Subjective Interval history: Patient seen and examined at bedside Labs, radiology, EMR have been personally reviewed 56 Y/O M being managed for Sepsis (possible source is pneumonia), Non- obstructive CAD s/p LHC complicated by retroperitoneal bleed s/p covered stent placement in right external iliac artery 05/28, Transaminitis possibly secondary to Acute Hep B, MRCP has been done with no evidence of cholangitis, acute blood loss anemia s/p 6 units RBC transfusion, with stable Hb now, Acute respiratory failure s/t volume and PNA, on BIPAP initially but now stable on room air, supplemental O2 by nasal cannula Patient has had persistent leukocytosis and developed fever on 05/31/16 Tmax now 101.9 on 06/01 1534 Repeat blood culture 06/01 is pending. Initial blood culture 05/26/16 is final , no growth UA is negative, LFTS are improving Lopez CT revealed worsening hematoma with mass effect, vascular surgery is on board Antibiotics have been escalated to Vancomycin and Aztreonam (patient with penicillin allergy) after high grade fever started patient is seen at bedside, he complains of constipation, he is otherwise asymptomatic and ambulatory - Constitutional Vitals: Temp Pulse Resp BP Pulse Ox 97.9 F 67 16 136/81 96 06/02/16 07:36 06/02/16 07:36 06/02/16 07:36 06/02/16 07:36 06/02/16 07:36 General appearance: Present: cooperative, A&O X 3, pleasant, no acute distress, answers questions appropriately - Head Head exam: Present: atraumatic, normocephalic - Eye Eye exam: Present: PERRL, conjuntiva pink, sclera anicteric Pupils: Present: PERRL - Neck Neck exam general surgery: Present: supple, trachea midline. Absent: lymphadenopathy - Respiratory Respiratory exam: Present: CTAB. Absent: accessory muscle use, rales, rhonchi, wheezes - Cardiovascular Cardiovascular exam: Present: RRR, +S1, +S2. Absent: diastolic murmur, gallop, rubs, systolic murmur - GI/Abdominal GI/Abdominal exam: Present: normal bowel sounds, soft, no peritoneal signs. Absent: distended, tenderness - Extremities Exam Extremities exam: Present: warm, radial pulses palpable and symetrical. Absent : calf tenderness, cyanotic, pedal edema - Neurological Exam Neurological exam: Present: CN II-XII intact, oriented X3, no focal deficits. Absent: pronater drift, facial droop, speech deficit - Skin Skin exam: Present: dry, intact Internal Medicine: Result - Labs CBC & Chem 7: 06/02/16 06:45 06/02/16 06:45 Labs: Short CBC 06/02/16 Range/Units 06:45 WBC 17.3 H (4.3-11.1) K/mcL Hgb 10.3 L (12.9-16.9) g/dL Hct 30.4 L (37.5-50.1) % Plt Count 397 (140-400) K/mcL Neutrophils # 11.2 H (1.6-8.9) K/mcL BMP 06/02/16 06:45 Sodium 134 L Potassium 3.4 L Chloride 99 Carbon Dioxide 28 BUN 19 Creatinine 0.84 Glucose 125 H Calcium 8.6 Urine 06/01/16 Range/Units 13:08 Urine Color Dark Yellow (Yellow) Urine Clarity Cloudy A (Clear) Urine pH 6.5 (5.0-8.0) pH Units Ur Specific Nelson 1.025 (1.010-1.025) Urine Protein Negative (Neg-Trace) mg/dL Urine Glucose (UA) Normal (Normal) mg/dL - ABG Interpretation ABG results: ABG ABG pH 7.33 pH Units (7.32-7.45) 05/27/16 07:15 ABG pCO2 28 mmHg (35-45) L 05/27/16 07:15 ABG pO2 92 mmHg (85-104) 05/27/16 07:15 ABG O2 Saturation 97 % (95-98) 05/27/16 07:15 PT/INR, D-dimer PT 15.2 Seconds (9.4-12.1) H 06/02/16 06:45 D-Dimer 537 ng/mLFEU (0-500) H 05/26/16 14:19 Consult Discharge Plan - Plan Referrals: Dara Perry MD [Primary Care Provider] -
--- NOTE | 2016-06-02 18:01 | Vascular/[facility] Progress Note ---
Date of Encounter: 06/02/16 Time of Encounter: 18:00 - Assessment and plan (1) Retroperitoneal hematoma Current Visit: Yes Status: Acute The patient is s/p right external iliac artery covered stent for retroperitoneal hemorrhage. His CT was reviewe and the size of the hematoma is consistent with the blood loss he sustained prior to the covered stent placement. There is no evidence of ongoing hemorhage on the CT scan. He remains hemodynamically stable and his hemoglobin is stable. (2) Hypertension Current Visit: Yes Status: Chronic Qualifiers: Hypertension type: essential hypertension Qualified Code(s): I10 - Essential (primary) hypertension (3) Tobacco abuse Current Visit: Yes Status: Chronic (4) Acute blood loss anemia Current Visit: Yes Status: Acute The patient has acute posthemorrhagic blood loss anemia due to his retroperitoneal hematoma. This was treated with a covered stent. He is hemodynamically stable. He recevied PRBCs today. - Subjective Interval history: Without complaints today. Remains on Bipap. Alert, comfortable. Vital Signs, Last 4 Hours Temp Pulse Resp BP Pulse Ox 06/02/16 16:25 16 92 L 06/02/16 15:27 98.5 F 72 17 126/72 93 L - Physical Examination General: Present: Conversant, No Apparent Distress HEENT: Present: Pupils equal Neck: Absent: JVD Cardiac: Present: Reg Rate and Rhythm, Normal S1 and S2 Lungs: Present: Normal Breath Sounds, No Wheeze, Rales, Rhonchi Neuro: Present: Alert and responsive, No focal deficits noted, Motor nerves grossly intact, Sensory nerves grossly intact Vascular: Present: Normal capillary refill, Pulse, normal. Absent: Cyanosis, Edema Abdomen: Present: Soft, Other (RLQ tenderness) Skin: Present: No rashes noted on visualized skin Results 06/03/16 19:28 06/03/16 05:07 Lab Results, Last 24 hours 06/02/16 06/02/16 06/02/16 06:45 06:45 06:45 WBC 17.3 H Hgb 10.3 L Hct 30.4 L Plt Count 397 INR 1.4 APTT 27.8 Sodium 134 L Potassium 3.4 L Chloride 99 Carbon Dioxide 28 BUN 19 Creatinine 0.84 Glucose 125 H Calcium 8.6 Consult Discharge Plan - Plan Referrals: Dara Perry MD [Primary Care Provider] - 06/11/16 2:00 pm (Web request 06/02/2016... Please follow up as schedule...)
[2016-06-03] MEDS: Aztreonam 2,000 MG in D5% in Water (Mini-Bag+) 100 ML IVPB SCH ×4 (00:26→18:03)
[2016-06-03] MEDS: *HR* Morphine 2 MG/ML SYRINGE IVP PRN ×2 (03:38→22:55)
[2016-06-03] MEDS: Ipratropium/Albuterol Neb 3 ML IH SCH ×4 (04:59→21:46)
[2016-06-03 05:19] LABS: Basophils # 0.1 K/mcL (0.0-0.2); Basophils % 0.4 %; Eosinophils # 1.1 K/mcL (0.0-0.6); Eosinophils % 7.2 %; Hematocrit 31.1 % (37.5-50.1); Hemoglobin 10.7 g/dL (12.9-16.9); Immature Granulocytes % 3.1 % (0-4); Lymphocytes % 11.7 %; Mean Corpuscular HGB Conc 34.4 g/dL (31.6-35.5); Mean Corpuscular Hemoglobin 30.7 pg (28.0-33.3); Mean Corpuscular Volume 89.1 fL (83.0-100.0); Mean Platelet Volume 9.5 fL (9.4-12.4); Monocytes # 2.7 K/mcL (0.0-1.3); Monocytes % 16.9 %; Neutrophils # 9.6 K/mcL (1.6-8.9); Platelet Count 466 K/mcL (140-400); Red Blood Count 3.49 M/mcL (4.19-5.50); Red Cell Distribution Width 18.1 % (11.5-14.5); Segmented Neutrophils % 60.7 %
[2016-06-03 05:43] LABS: Lymphocytes # 1.9 K/mcL (0.6-4.6); Reactive Lymphocytes Present (Not Present)
[2016-06-03 06:03] LABS: BUN/Creatinine Ratio 23 (6-26); Blood Urea Nitrogen 19 mg/dL (8-26); Calcium 8.9 mg/dL (8.6-10.8); Carbon Dioxide 28 mEq/L (19-29); Chloride 101 mEq/L (98-109); Glucose 91 mg/dL (70-99); Osmolality,Calculated 282 (280-300); Potassium 3.8 mEq/L (3.5-4.5); Sodium 135 mEq/L (136-145); eGFR For African Americans > 60 (> 60); eGFR For Non-African Americans > 60 (> 60)
[2016-06-03] MEDS: *HR* Heparin 5,000 UNIT/ML VIAL SQ SCH ×2 (06:27→19:53)
[2016-06-03] MEDS: Vancomycin 1,000 MG in D5% in Water 250 ML IVPB SCH (06:47)
--- NOTE | 2016-06-03 09:19 | Internal Med Progress Note ---
Date of Encounter: 06/03/16 Time of Encounter: 08:40 - Assessment and plan (1) Retroperitoneal hematoma Current Visit: Yes Status: Acute Assessment and plan: Iatrogenic. Stable. Hemoglobin levels are stable. Does not appear to be having any further hemorrhage. Vascular surgery following. (2) Sepsis Current Visit: Yes Status: Acute Assessment and plan: Temperature improving. Leukocytosis is also improving. On broad-spectrum antibiotic coverage. Cultures have been negative. If continues to improve, will change to oral antibiotics tomorrow. Moderate risk for complications. Qualifiers: Sepsis type: sepsis due to unspecified organism Qualified Code(s): A41.9 - Sepsis, unspecified organism (3) Transaminitis Current Visit: No Status: Acute Assessment and plan: From hepatitis B. (4) Hypertension Current Visit: Yes Status: Chronic Assessment and plan: Well-controlled. Qualifiers: Hypertension type: essential hypertension Qualified Code(s): I10 - Essential (primary) hypertension (5) Tobacco abuse Current Visit: Yes Status: Chronic Assessment and plan: Counseled about cessation. (6) Pneumonia Current Visit: Yes Status: Acute Assessment and plan: On IV antibiotics. Will complete treatment course. Leukocytosis is improving. Nonspecific organism. Qualifiers: Pneumonia type: due to unspecified organism Laterality: left Lung location: lower lobe of lung Qualified Code(s): J18.1 - Lobar pneumonia, unspecified organism (7) COPD (chronic obstructive pulmonary disease) Current Visit: Yes Status: Chronic Assessment and plan: Patient with COPD and hypoxia. Will evaluate for home oxygen. On DuoNeb's. Does not appear to be in acute exacerbation. Qualifiers: COPD type: emphysema Emphysema type: panlobular Qualified Code(s): J43.1 - Panlobular emphysema - Subjective Interval history: The patient is awake and alert. Denies any new complaints at this time. MAXIMUM TEMPERATURE of 99.9 overnight. No chills or night sweats. No chest pain or abdominal pain. - Constitutional Vitals: Temp Pulse Resp BP Pulse Ox 98.1 F 80 19 128/74 93 L 06/03/16 08:47 06/03/16 08:47 06/03/16 08:47 06/03/16 08:47 06/03/16 08:47 General appearance: Present: cooperative, A&O X 3, pleasant, no acute distress, answers questions appropriately - Respiratory Respiratory exam: Present: prolonged expiratory phase, wheezes. Absent: accessory muscle use, rales, rhonchi - Cardiovascular Cardiovascular exam: Present: RRR, +S1, +S2. Absent: diastolic murmur, gallop, rubs, systolic murmur - GI/Abdominal GI/Abdominal exam: Present: normal bowel sounds, soft, no peritoneal signs. Absent: distended, tenderness - Extremities Exam Extremities exam: Present: warm, radial pulses palpable and symetrical. Absent : calf tenderness, cyanotic, pedal edema - Neurological Exam Neurological exam: Present: CN II-XII intact, oriented X3, no focal deficits, strengths equal and symetr throughout. Absent: facial droop, speech deficit - Skin Skin exam: Present: dry, intact Internal Medicine: Result - Labs CBC & Chem 7: 06/03/16 05:07 06/03/16 05:07 Labs: Short CBC 06/03/16 Range/Units 05:07 WBC 15.8 H (4.3-11.1) K/mcL Hgb 10.7 L (12.9-16.9) g/dL Hct 31.1 L (37.5-50.1) % Plt Count 466 H (140-400) K/mcL Neutrophils # 9.6 H (1.6-8.9) K/mcL BMP 06/03/16 05:07 Sodium 135 L Potassium 3.8 Chloride 101 Carbon Dioxide 28 BUN 19 Creatinine 0.82 Glucose 91 Calcium 8.9 - ABG Interpretation ABG results: ABG ABG pH 7.33 pH Units (7.32-7.45) 05/27/16 07:15 ABG pCO2 28 mmHg (35-45) L 05/27/16 07:15 ABG pO2 92 mmHg (85-104) 05/27/16 07:15 ABG O2 Saturation 97 % (95-98) 05/27/16 07:15 PT/INR, D-dimer PT 15.2 Seconds (9.4-12.1) H 06/02/16 06:45 D-Dimer 537 ng/mLFEU (0-500) H 05/26/16 14:19 Consult Discharge Plan - Plan Referrals: Dara Perry MD [Primary Care Provider] - 02/22/17 2:00 pm (Web request 06/02/2016... Please follow up as schedule...) - Attending Attestation This document has been at least partially created by [employer] recognition technology by Dr. Momin. Errors in grammar, wording or other phrases may exist. If errors are found after the documentation is signed, they will be addressed individually in the addendum section of this document when appropriate.
[2016-06-03] MEDS: Nicotine 14 MG PATCH.TD24 TD SCH (09:25)
[2016-06-03] MEDS: Nystatin SUSP 5 ML UD.LIQ PO SCH ×4 (09:25→21:11)
[2016-06-03] MEDS ORDERED: Acetaminophen 325 MG TABLET PO PRN (11:37)
[2016-06-03] MEDS ORDERED: *HR* HYDROcodone/Acet 5/325 mg TABLET PO PRN (11:41)
[2016-06-03] MEDS ORDERED: *HR* Morphine 2 MG/ML SYRINGE IVP ONE (15:04)
[2016-06-03] MEDS: Vancomycin 1,250 MG in D5% in Water 250 ML IVPB SCH (18:02)
[2016-06-03 19:47] LABS: Basophils # 0.1 K/mcL (0.0-0.2); Basophils % 0.5 %; Eosinophils % 6.6 %; Hematocrit 32.3 % (37.5-50.1); Hemoglobin 11.1 g/dL (12.9-16.9); Lymphocytes # 1.9 K/mcL (0.6-4.6); Lymphocytes % 12.4 %; Mean Corpuscular HGB Conc 34.4 g/dL (31.6-35.5); Mean Corpuscular Hemoglobin 30.7 pg (28.0-33.3); Mean Corpuscular Volume 89.2 fL (83.0-100.0); Mean Platelet Volume 9.3 fL (9.4-12.4); Monocytes # 2.3 K/mcL (0.0-1.3); Monocytes % 15.2 %; Neutrophils # 9.4 K/mcL (1.6-8.9); Platelet Count 525 K/mcL (140-400); Red Blood Count 3.62 M/mcL (4.19-5.50); Red Cell Distribution Width 18.1 % (11.5-14.5); Segmented Neutrophils % 63.3 %
--- NOTE | 2016-06-03 21:23 | Event Note ---
Date of Encounter: 06/03/16 Time of Encounter: 17:[address] scan findings with Dr. Spain and Radiology. No significant increase in size of hematoma. Will continue supportive care, pain control. Recheck CBC. Monitor vitals. Patient informed of the plan. Expressed understanding.
[2016-06-04] MEDS: Aztreonam 2,000 MG in D5% in Water (Mini-Bag+) 100 ML IVPB SCH ×3 (01:19→12:04)
[2016-06-04] MEDS: Ipratropium/Albuterol Neb 3 ML IH SCH ×4 (03:55→22:28)
[2016-06-04] MEDS: *HR* Morphine 2 MG/ML SYRINGE IVP PRN ×2 (05:50→20:25)
[2016-06-04 07:02] LABS: Basophils # 0.1 K/mcL (0.0-0.2); Basophils % 0.4 %; Eosinophils # 1.4 K/mcL (0.0-0.6); Eosinophils % 9.1 %; Hematocrit 31.2 % (37.5-50.1); Hemoglobin 10.7 g/dL (12.9-16.9); Lymphocytes # 1.5 K/mcL (0.6-4.6); Lymphocytes % 9.6 %; Mean Corpuscular HGB Conc 34.3 g/dL (31.6-35.5); Mean Corpuscular Volume 90.4 fL (83.0-100.0); Mean Platelet Volume 9.6 fL (9.4-12.4); Monocytes # 2.2 K/mcL (0.0-1.3); Monocytes % 14.5 %; Neutrophils # 9.7 K/mcL (1.6-8.9); Platelet Count 515 K/mcL (140-400); Red Blood Count 3.45 M/mcL (4.19-5.50); Red Cell Distribution Width 17.9 % (11.5-14.5); Segmented Neutrophils % 64.4 %
[2016-06-04] MEDS: Vancomycin 1,250 MG in D5% in Water 250 ML IVPB SCH (07:27)
[2016-06-04] MEDS: *HR* Heparin 5,000 UNIT/ML VIAL SQ SCH ×2 (07:28→19:01)
[2016-06-04] MEDS ORDERED: Aminoglycoside Consult 1 EACH MC ONE (08:03)
--- NOTE | 2016-06-04 08:10 | Vascular/[facility] Progress Note ---
Date of Encounter: 06/04/16 Time of Encounter: 07:30 - Assessment and plan (1) Retroperitoneal hematoma Status: Acute The patient is s/p right external iliac artery covered stent for retroperitoneal hemorrhage. His 06/03/16 CT scan was reviewed. He has no evidence of ongoing bleeding. Vitals remain stable and hemoglobin remains stable. RLQ pain likely secondary to hematoma. Continue with pain control. (2) Hypertension Status: Chronic Qualifiers: Hypertension type: essential hypertension Qualified Code(s): I10 - Essential (primary) hypertension (3) Tobacco abuse Status: Chronic (4) Acute blood loss anemia Status: Acute The patient has acute posthemorrhagic blood loss anemia due to his retroperitoneal hematoma. This was treated with a covered stent. He is hemodynamically stable. He recevied PRBCs today. - Subjective Interval history: Without complaints today. Remains on Bipap. Alert, comfortable. Vital Signs, Last 4 Hours Temp Pulse Resp BP Pulse Ox 06/04/16 07:43 98.2 F 74 17 121/82 97 - Physical Examination General: Present: Conversant HEENT: Present: Atraumatic Cardiac: Present: Reg Rate and Rhythm Lungs: Present: Normal Breath Sounds Neuro: Present: Alert and responsive, No focal deficits noted Vascular: Present: Normal capillary refill. Absent: Cyanosis, Edema Abdomen: Present: Other (right lower quadrant tenderness, unchanged) Skin: Present: No rashes noted on visualized skin Results 06/05/16 06:33 06/03/16 05:07 Lab Results, Last 24 hours 06/03/16 06/04/16 19:28 06:33 WBC 14.9 H 15.1 H Hgb 11.1 L 10.7 L Hct 32.3 L 31.2 L Plt Count 525 H 515 H - Imaging / Other Tests CT/CTA: report reviewed, image reviewed Consult Discharge Plan - Plan Instructions: Chest Pain (DC), Chronic Obstructive Pulmonary Disease (DC), Sepsis (DC), Chronic Hypertension (DC), Pneumonia (DC) Additional Instructions: Patient is currently stable to be discharged home. He will need to be evaluated by his primary care provider before he returns to work. Referrals: Joe Spain MD [Partnered Physician] - 06/16/16 9:30 am (follow-up on retroperitoneal hematoma) Dara Perry MD [Primary Care Provider] - 06/11/16 2:00 pm () Lloyd Bains MD [Partnered Physician] - 06/18/16 12:30 pm () Prescriptions: OxyCODONE Immed Rel [Roxicodone 5 MG] 5 mg PO Q4HR PRN #14 tablet PRN Reason: Moderate Pain (4-7) Cefdinir [Omnicef] 300 mg PO BID #10 capsule Clopidogrel [Plavix] 75 mg PO DAILY #30 tablet Docusate [Colace] 100 mg PO BID PRN #30 capsule PRN Reason: Constipation Doxycycline 100 mg PO BID #10 capsule Pantoprazole Sodium 40 mg PO DAILY #30 tablet.
--- NOTE | 2016-06-04 09:38 | Internal Med Progress Note ---
Date of Encounter: 06/04/16 Time of Encounter: 08:45 - Assessment and plan (1) Retroperitoneal hematoma Current Visit: Yes Status: Acute Assessment and plan: Repeat CT scan done yesterday showed slight but insignificant increase in size of hematoma. Discussed with vascular surgery. No further recommendations at this time besides. Continue to monitor hemoglobin levels. Patient does not appear to be having any further bleeding. I risk for complications as patient is receiving intravenous morphine for pain control. (2) Sepsis Current Visit: Yes Status: Acute Assessment and plan: Clinically getting better. WBC count 15.1 today. Improved from 15.8 yesterday morning. Currently receiving vancomycin and aztreonam. Cultures have been negative. Will change antibiotics to doxycycline and Augmentin. Qualifiers: Sepsis type: sepsis due to unspecified organism Qualified Code(s): A41.9 - Sepsis, unspecified organism (3) Transaminitis Current Visit: No Status: Acute Assessment and plan: From hepatitis B (4) Hypertension Current Visit: Yes Status: Chronic Assessment and plan: Well-controlled. Qualifiers: Hypertension type: essential hypertension Qualified Code(s): I10 - Essential (primary) hypertension (5) Tobacco abuse Current Visit: Yes Status: Chronic (6) Pneumonia Current Visit: Yes Status: Acute Assessment and plan: Will complete treatment with Augmentin and doxycycline. Qualifiers: Pneumonia type: due to unspecified organism Laterality: left Lung location: lower lobe of lung Qualified Code(s): J18.1 - Lobar pneumonia, unspecified organism (7) COPD (chronic obstructive pulmonary disease) Current Visit: Yes Status: Chronic Assessment and plan: On albuterol and ipratropium nebs Qualifiers: COPD type: emphysema Emphysema type: panlobular Qualified Code(s): J43.1 - Panlobular emphysema - Subjective Interval history: Patient complaining of right lower quadrant abdominal and right flank pain. Improved compared to yesterday. Denies any dizziness or lightheadedness. No hemoptysis. No melena or hematemesis. Tolerating diet well. - Constitutional Vitals: Temp Pulse Resp BP Pulse Ox 98.2 F 74 17 121/82 97 06/04/16 07:43 06/04/16 07:43 06/04/16 07:43 06/04/16 07:43 06/04/16 07:43 General appearance: Present: cooperative, A&O X 3, pleasant, no acute distress, answers questions appropriately - Respiratory Respiratory exam: Present: CTAB. Absent: accessory muscle use, rales, rhonchi, wheezes - Cardiovascular Cardiovascular exam: Present: RRR, +S1, +S2. Absent: diastolic murmur, gallop, rubs, systolic murmur - GI/Abdominal GI/Abdominal exam: Present: normal bowel sounds, soft, tenderness (right lower abdominal quadrant and right flank), no peritoneal signs. Absent: distended - Extremities Exam Extremities exam: Present: warm, radial pulses palpable and symetrical. Absent : calf tenderness, cyanotic, pedal edema - Neurological Exam Neurological exam: Present: alert, oriented X3, no focal deficits. Absent: facial droop, speech deficit - Skin Skin exam: Present: dry, intact Additional comments: Ecchymosis noted in the right lower abdominal and right flank region. Internal Medicine: Result - Labs CBC & Chem 7: 06/04/16 06:33 06/03/16 05:07 Labs: Short CBC 06/03/16 06/04/16 Range/Units 19:28 06:33 WBC 14.9 H 15.1 H (4.3-11.1) K/mcL Hgb 11.1 L 10.7 L (12.9-16.9) g/dL Hct 32.3 L 31.2 L (37.5-50.1) % Plt Count 525 H 515 H (140-400) K/mcL Neutrophils # 9.4 H 9.7 H (1.6-8.9) K/mcL - ABG Interpretation ABG results: ABG ABG pH 7.33 pH Units (7.32-7.45) 05/27/16 07:15 ABG pCO2 28 mmHg (35-45) L 05/27/16 07:15 ABG pO2 92 mmHg (85-104) 05/27/16 07:15 ABG O2 Saturation 97 % (95-98) 05/27/16 07:15 PT/INR, D-dimer PT 15.2 Seconds (9.4-12.1) H 06/02/16 06:45 D-Dimer 537 ng/mLFEU (0-500) H 05/26/16 14:19 - Impressions Impressions Abdomen/Pelvis CT 06/03/16 14:58 IMPRESSION: Large heterogeneous right retroperitoneal hemorrhage is again demonstrated, as a whole grossly similar in distribution to the prior examination. Small foci of lobular high attenuation are again seen within the collection near the distal right external iliac artery, which can reflect areas of more recent hemorrhage. Small right pleural effusion and bibasilar atelectasis. D/ / Tyler Cuadra MD / Tyler Cuadra MD Interpreting Provider: Tyler Cuadra MD Consult Discharge Plan - Plan Referrals: Dara Perry MD [Primary Care Provider] - 06/11/16 2:00 pm (Web request 06/02/2016... Please follow up as schedule...) - Attending Attestation This document has been at least partially created by [employer] voice recognition technology by Dr. Momin. Errors in grammar, wording or other phrases may exist. If errors are found after the documentation is signed, they will be addressed individually in the addendum section of this document when appropriate.
[2016-06-04] MEDS: Nystatin SUSP 5 ML UD.LIQ PO SCH ×4 (10:07→20:22)
[2016-06-04] MEDS: Nicotine 14 MG PATCH.TD24 TD SCH (10:07)
[2016-06-04] MEDS: *HR* OxyCODONE Immed Rel 5 MG TABLET PO PRN (16:46)
[2016-06-04] MEDS: Cefdinir 300 MG CAPSULE PO SCH (20:22)
[2016-06-04] MEDS: Doxycycline 100 MG CAPSULE PO SCH (20:22)
[2016-06-05] MEDS: *HR* OxyCODONE Immed Rel 5 MG TABLET PO PRN ×2 (01:09→06:09)
[2016-06-05] MEDS: *HR* Morphine 2 MG/ML SYRINGE IVP PRN (01:58)
[2016-06-05] MEDS: Ipratropium/Albuterol Neb 3 ML IH SCH ×2 (04:02→09:47)
[2016-06-05] MEDS: *HR* Heparin 5,000 UNIT/ML VIAL SQ SCH (06:09)
[2016-06-05 07:06] LABS: Basophils # 0.1 K/mcL (0.0-0.2); Basophils % 0.5 %; Eosinophils # 1.3 K/mcL (0.0-0.6); Eosinophils % 9.3 %; Lymphocytes # 1.8 K/mcL (0.6-4.6); Lymphocytes % 12.4 %; Mean Corpuscular HGB Conc 33.3 g/dL (31.6-35.5); Mean Corpuscular Hemoglobin 29.9 pg (28.0-33.3); Mean Corpuscular Volume 89.7 fL (83.0-100.0); Monocytes # 1.9 K/mcL (0.0-1.3); Monocytes % 13.6 %; Neutrophils # 8.8 K/mcL (1.6-8.9); Platelet Count 553 K/mcL (140-400); Red Blood Count 3.68 M/mcL (4.19-5.50); Red Cell Distribution Width 18.1 % (11.5-14.5); Segmented Neutrophils % 62.2 %
[2016-06-05 07:11] VITALS: BP 123/81
--- NOTE | 2016-06-05 09:30 | Discharge Summary ---
Date of Encounter: 06/05/16 Time of Encounter: 09:26 - Discharge Diagnosis (1) Retroperitoneal hematoma Priority: Primary Status: Acute (2) Sepsis Priority: Secondary Status: Acute Qualifiers: Sepsis type: sepsis due to unspecified organism Qualified Code(s): A41.9 - Sepsis, unspecified organism (3) Transaminitis Priority: Secondary Status: Acute (4) Hypertension Priority: Secondary Status: Chronic Qualifiers: Hypertension type: essential hypertension Qualified Code(s): I10 - Essential (primary) hypertension (5) Tobacco abuse Priority: Secondary Status: Chronic (6) Pneumonia Priority: Secondary Status: Acute Qualifiers: Pneumonia type: due to unspecified organism Laterality: left Lung location: lower lobe of lung Qualified Code(s): J18.1 - Lobar pneumonia, unspecified organism (7) COPD (chronic obstructive pulmonary disease) Priority: Secondary Status: Chronic Qualifiers: COPD type: emphysema Emphysema type: panlobular Qualified Code(s): J43.1 - Panlobular emphysema - Discharge Medications Prescriptions: OxyCODONE Immed Rel [Roxicodone 5 MG] 5 mg PO Q4HR PRN #14 tablet PRN Reason: Moderate Pain (4-7) Cefdinir [Omnicef] 300 mg PO BID #10 capsule Clopidogrel [Plavix] 75 mg PO DAILY #30 tablet Docusate [Colace] 100 mg PO BID PRN #30 capsule PRN Reason: Constipation Doxycycline 100 mg PO BID #10 capsule Pantoprazole Sodium 40 mg PO DAILY #30 tablet.dr Home Medications: BuPROPion XL (24 HR) [Wellbutrin Xl] 150 mg PO DAILY 12/31/15 [History] Cyclobenzaprine HCl 10 mg PO HS 12/31/15 [History] Gabapentin [Neurontin] 1 - 2 cap PO BID 12/31/15 [History] Lisinopril-HCTZ 10-12.5 [Prinzide 10-12.5] 1 tab PO DAILY 12/31/15 [History] Tiotropium [Spiriva] 18 mcg IH DAILY 12/31/15 [History] Etodolac [Lodine] 400 mg PO BID 05/26/16 [History] Finasteride [Proscar] 5 mg PO DAILY 05/26/16 [History] Tamsulosin HCl [Flomax] 0.4 mg PO DAILY 05/26/16 [History] Cefdinir [Omnicef] 300 mg PO BID #10 capsule 06/05/16 [Rx] Clopidogrel [Plavix] 75 mg PO DAILY #30 tablet 06/05/16 [Rx] Docusate [Colace] 100 mg PO BID PRN #30 capsule 06/05/16 [Rx] Doxycycline 100 mg PO BID #10 capsule 06/05/16 [Rx] OxyCODONE Immed Rel [Roxicodone 5 MG] 5 mg PO Q4HR PRN #14 tablet 06/05/16 [Rx] Pantoprazole Sodium 40 mg PO DAILY #30 tablet. 06/05/16 [Rx] Allergies/Adverse Reactions: Allergies Penicillins [PCN] Allergy (Verified 05/26/16 14:35) Hives [place] Adverse Reaction (Verified 05/26/16 14:35) Anaphylaxis Procedures/tests Complete & Pending: Procedures Performed prior 72 hours Category Date Time Status CT abd pelvis w iv no oral [CT] Stat Cat Scan 06/03/16 14:58 Completed Date of admission: 05/26/16 18:45 Primary care physician: Dara Padilla Consults: 05/27/16 01:17 Consult to Vascular Surgery [CONS] Routine Consulting Provider: Vascular Surgery [place] Reason for Consult: Status post left heart catheterization large right hematoma with evidence of active extravasation arising from right external iliac/ femoral artery extending both in peritoneal and retroperitoneal 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 Please evaluate and advise. Time Notified: 00:30 Call Completed: Yes 05/27/16 08:25 Consult to Cardiac Rehabilitation-Phase1 [CONS] Routine Comment: Reason for Consult: post op cath Call Completed: Yes 05/27/16 09:43 Consult to Pulmonology [CONS] Stat Consulting Provider: [facility] [place] Reason for Consult: Hemorrhagic shock, acidosis Call Completed: Yes 05/27/16 10:25 Consult to Gastroenterology [CONS] Routine Consulting Provider: Gastroenterology [place] Reason for Consult: Transaminitis Time Notified: 10:26 Call Completed: Yes 05/30/16 16:25 OT [Consult to Occupational Therapy] [CONS] Routine Comment: Evaluate, develop and implement POC PT [Consult to Physical Therapy] [CONS] Routine Comment: Evaluate, develop and implement POC 06/01/16 14:36 Consult to Vascular Surgery [CONS] Stat Consulting Provider: [facility] [place] Reason for Consult: Worsening hematoma Call Completed: Yes Discharging clinician: Best Momin Anticipated date of discharge: 06/05/16 - Patient Status Disposition: Home, Self-Care Condition: Good Functional capacity at discharge: independent ambulation Overall status at discharge: patient is progressing back to baseline - Discharge Instructions Instructions: Chest Pain (DC), Chronic Obstructive Pulmonary Disease (DC), Sepsis (DC), Chronic Hypertension (DC), Pneumonia (DC) Follow Up With: Joe Spain MD [Partnered Physician] - 06/16/16 9:30 am (follow-up on retroperitoneal hematoma) Dara Perry MD [Primary Care Provider] - 06/11/16 2:00 pm () Lloyd Bains MD [Partnered Physician] - 06/18/16 12:30 pm () Additional Instructions: Patient is currently stable to be discharged home. He will need to be evaluated by his primary care provider before he returns to work. - Diet and Activity Activity: wear oxygen at all times Diet: low fat, low cholesterol, low salt diet Hospital course: Mr. Cedeno is a 56 year old male with history of COPD, gastroesophageal reflux disease, hypertension was admitted here with sepsis and abnormal EKGs suggestive of ST elevation ND with chest pain. Cardiology was consulted. Patient underwent cardiac catheterization which did not show any obstructive coronary artery disease. Recent had normal ejection fraction. He did not require any stents. However postprocedure patient became hypotensive and the CT scan of his abdomen showed retroperitoneal hematoma. Vascular surgery was consulted and patient underwent abdominal aortogram and placement of right external iliac artery atrium covered stent. He did require 6 units of packed red blood cells transfusion and 4 units of fresh frozen plasma. His vital signs were then stabilized and patient has since been followed closely. His hemoglobin levels have remained stable since then. His WBC count initially improved but then got worse and his antibiotic regimen was changed. He is currently on cefdinir and doxycycline and his WBC count is improving. Unclear source of infection as patient's chest x-ray, blood cultures and urinalysis have been normal. A repeat CT scan of the abdomen was done 2 days back which showed slight but insignificant increase in size of hematoma with no active bleeding. Patient continues to have pain but it this is getting better every day. Discussed with vascular surgery and the patient is clinically stable to be discharged home at this time as his blood counts have remained good. He will follow up with cardiology and vascular surgery after discharge. - Time Spent with Patient Total time spent providing and/or coordinating discharge services: Greater than 30 minutes (45 min) - Constitutional Vitals: Temp Pulse Resp BP Pulse Ox 98.4 F 67 18 123/81 94 L 06/05/16 07:09 06/05/16 07:09 06/05/16 07:09 06/05/16 07:09 06/05/16 07:09 General appearance: Present: cooperative, A&O X 3, pleasant, no acute distress, answers questions appropriately - Respiratory Respiratory exam: Present: CTAB. Absent: accessory muscle use, rales, rhonchi, wheezes - Cardiovascular Cardiovascular exam: Present: RRR, +S1, +S2. Absent: diastolic murmur, gallop, rubs, systolic murmur - GI/Abdominal GI/Abdominal exam: Present: normal bowel sounds, soft, no peritoneal signs. Absent: distended, tenderness Additional comments: Ecchymosis and tenderness noted in the right flank and right lower abdominal quadrant. - Skin Skin exam: Present: dry, intact Additional comments: Ecchymosis as described - Attending Attestation This document has been at least partially created by [employer] recognition technology by Dr. Momin. Errors in grammar, wording or other phrases may exist. If errors are found after the documentation is signed, they will be addressed individually in the addendum section of this document when appropriate.
[2016-06-05] MEDS: Cefdinir 300 MG CAPSULE PO SCH (10:05)
[2016-06-05] MEDS: Doxycycline 100 MG CAPSULE PO SCH (10:05)
[2016-06-05] MEDS: Nystatin SUSP 5 ML UD.LIQ PO SCH (10:05)
[2016-06-05] MEDS: Nicotine 14 MG PATCH.TD24 TD SCH (10:06)
== END 2016-06-05 14:24 | disposition home or self-care (01) | DRG 853 ==
LOC: EMEROO 13:34 → 2ANU 13:34 → SUATTDRO 18:45 → 2NNU 19:15 → ICNU 05-27 00:39 → 2ANU 05-30 09:21
PROVIDERS: ADMIT Internal Medicine Interventional Cardiology; ATTEND Internal Medicine

== ENCOUNTER 2017-05-25 11:54 | Inpatient (IN) ==
[2017-05-25] MEDS ORDERED: methylPREDNISolone 125 MG/2 ML VIAL IVP ONE (12:12)
[2017-05-25] MEDS ORDERED: Ipratropium/Albuterol Neb 3 ML IH ONE (12:12)
[2017-05-25 12:23] LABS: Basophils # 0.1 K/mcL (0.0-0.2); Basophils % 0.5 %; Eosinophils # 0.3 K/mcL (0.0-0.6); Eosinophils % 2.9 %; Hematocrit 42.9 % (37.5-50.1); Hemoglobin 14.3 g/dL (12.9-16.9); Immature Granulocytes % 0.4 % (0-4); Lymphocytes # 0.8 K/mcL (0.6-4.6); Lymphocytes % 7.1 %; Mean Corpuscular HGB Conc 33.3 g/dL (31.6-35.5); Mean Corpuscular Hemoglobin 29.9 pg (28.0-33.3); Mean Corpuscular Volume 89.6 fL (83.0-100.0); Mean Platelet Volume 9.1 fL (9.4-12.4); Monocytes # 1.7 K/mcL (0.0-1.3); Monocytes % 14.4 %; Neutrophils # 8.5 K/mcL (1.6-8.9); Platelet Count 280 K/mcL (140-400); Red Blood Count 4.79 M/mcL (4.19-5.50); Segmented Neutrophils % 74.7 %
--- NOTE | 2017-05-25 12:27 | Emergency Department Note ---
Disposition Clinical Impression: COPD exacerbation Disposition: Admitted As Inpatient Condition: Fair Referrals: Dara Perry MD [Primary Care Provider] - Forms: ED Satisfaction Letter SOB HPI - General Chief Complaint: ED Shortness of Breath/Dyspnea Stated Complaint: Poss pneumonia Time Seen by Provider: 05/25/17 12:11 Source: patient Mode of arrival: private vehicle Limitations: no limitations Nursing Notes Reviewed: Yes Vital Signs Reviewed: Yes - History of Present Illness 57-year-old male history of COPD without oxygen dependency who presents to the ER with a chief complaint of shortness of breath. Reports she has felt unwell for the last 2 weeks. He has had a cough with some increased shortness of breath. States today increased in intensity so he came in for evaluation. He reports fevers at home up to 103 a few days ago. No chest pain. No nausea vomiting or diarrhea. Significant other states that he did have pneumonia last year and was admitted for a prolonged hospital stay. Patient noted to be around 90% on room air. No other complaints. Pt Subjective Complaint: shortness of breath, cough Onset (ago): week(s) Context: recent illness Severity: severe Consistency/Duration: constant Improves with: nothing Worsens with: nothing Known history of: COPD Associated symptoms: Reports: fever, cough. Denies: chest pain, nausea/vomiting Treatment prior to arrival: none Cough present: Yes Cough Description: Involuntary Cough Frequency: Intermittent Sputum production: No Sputum Amount: None - Related Data Home oxygen amount: none Home Medications Medication Instructions Recorded Confirmed Lisinopril-HCTZ 10-12.5 [Prinzide 1 tab PO DAILY 12/31/15 08/21/16 10-12.5] Tiotropium [Spiriva] 18 mcg IH DAILY 12/31/15 08/21/16 Finasteride [Proscar] 5 mg PO DAILY 05/26/16 08/21/16 Tamsulosin HCl [Flomax] 0.4 mg PO DAILY 05/26/16 08/21/16 Aspirin [Lo-Dose Aspirin EC] 81 mg PO DAILY 08/21/16 08/21/16 Sodium Chloride 1 gm PO TID 08/21/16 08/21/16 Previous Rx's Medication Instructions Recorded Clopidogrel [Plavix] 75 mg PO DAILY #30 tablet 06/05/16 Pantoprazole Sodium 40 mg PO DAILY #30 tablet. 06/05/16 OxyCODONE/APAP 10/325 [Percocet 1 each PO Q6HR PRN #24 tablet 08/21/16 10/325 MG] levoFLOXacin [Levaquin] 500 mg PO DAILY #10 tablet 03/15/17 predniSONE [PredniSONE] 0 mg PO DAILY #15 tablet 03/15/17 Allergies Allergy/AdvReac Type Severity Reaction Status Date / Time Penicillins [PCN] Allergy Hives Verified 08/21/16 13:34 [place] AdvReac Anaphylaxis Verified 08/21/16 13:34 All systems ED: reviewed and negative except as stated. Constitutional: Reports: fever Cardiovascular: Denies: chest pain Respiratory: Reports: cough, dyspnea Gastrointestinal: Denies: nausea, vomiting, diarrhea Past Medical History - Past Medical History Attestation: Yes The following information was validated with the patient. Source: patient Medical history: Reports: COPD, GERD, hypertension, other Surgical history: Reports: appendectomy, other Psychiatric history: Reports: no psych history - Social History Smoking Status: Current every day smoker Smokeless Tobacco Status: No Alcohol use: Reports: none Drug use: Reports: none Physical Exam - General Limitations: no limitations General appearance: alert, in no apparent distress - Head Head exam: atraumatic - Eye Eye exam: Present: normal appearance - ENT ENT exam: normal exam - Neck Neck exam: Present: normal inspection, full ROM - Chest Chest inspection: Present: normal inspection, symmetric chest wall rise - Respiratory Respiratory exam: Present: respiratory distress, accessory muscle use, prolonged expiratory phase. Absent: stridor - Cardiovascular Cardiovascular exam: Present: regular rate, normal rhythm, normal heart sounds - Abdominal Exam Abdominal exam: Present: soft, Non-Tender. Absent: tenderness - Extremities Exam Extremities exam: Present: normal inspection, full ROM - Expanded Upper Extremity Exam Shoulder exam: Present: normal inspection, full ROM Arm exam: Present: normal inspection, full ROM Elbow exam: Present: normal inspection, full ROM Forearm/Wrist exam: Present: normal inspection, full ROM Hand exam: Present: normal inspection, full ROM - Expanded Lower Extremity Exam Hip/Pelvis exam: Present: normal inspection, full ROM Upper leg exam: Present: normal inspection, full ROM Knee exam: Present: normal inspection, full ROM Lower leg exam: Present: normal inspection, full ROM Ankle exam: Present: normal inspection, full ROM Foot/toe exam: Present: normal inspection, full ROM - Skin Skin exam: Present: warm, dry Course Course Narrative: Patient seen and examined. Vital signs reviewed. We will get DuoNeb and steroids treatments here. We will obtain an x-ray, EKG, influenza swab as well as labs including troponin. - Reevaluation(s) Reevaluation #1: Discussed results and imaging labs the patient. He is agreeable standing. He is currently on BiPAP with improvement of symptoms. Vital Signs Temperature 99.2 F 05/25/17 12:04 Pulse Rate 103 05/25/17 12:04 Respiratory Rate 42 05/25/17 12:04 Blood Pressure 125/73 05/25/17 12:04 O2 Sat by Pulse Oximetry 91 05/25/17 12:04 Temperature 98.1 F 05/25/17 12:08 Pulse Rate 103 05/25/17 12:08 Respiratory Rate 30 05/25/17 12:43 Blood Pressure 121/87 05/25/17 12:08 O2 Sat by Pulse Oximetry 96 05/25/17 12:43 Oxygen Delivery Oxygen Delivery Nasal Cannula Shortness of Breath/Dyspnea - [facility] Narrative Medical decision making narrative: 57-year-old male presents to the ER due to shortness of breath. He initially had a respiratory rate around 40 noted to be 90% on room air. EKG is nonischemic. Chest x-ray without acute findings. Labs reviewed. Given his elevated respiratory rate he was placed on BiPAP. He appears more comfortable at this time and oxygen saturation is well. Patient is admitted to the hospitalist service for COPD exacerbation. This documentation is done with the assistance of Dragon dictation. There may be inaccuracies in sanitation technician or spelling and typographical errors. I examined this patient and my medical decision-making was reviewed with the Resident Physician. I agree with the documented findings, disposition and treatment plan as described except to the extent set forth below. Patient seen and evaluated on arrival by Dr. Mendes and myself, I agree with his evaluation management plan, supervised the care the patient's stay. Patient has a history of COPD presents with increasing shortness of breath. Dyspneic to 1-2 words. That brought home but not here. We will do a flu swab on him workup for pneumonia and reassessed. He is getting breathing treatments now he will need admission. Chest X-Ray 05/25/17 12:12 IMPRESSION: 1. No evidence of acute intrathoracic process. 2. Unchanged prominence of central pulmonary vasculature, which can be seen with pulmonary arterial hypertension. D/ / Carolina Saenz / Carolina Saenz Interpreting Provider: Carolina Saenz Patient received 3 breathing treatments he is doing better but is still tight, we started him on BiPAP here and is tolerating that well. 1348 hrs.: Patient's feeling better. Still maintained on BiPAP. Getting a flu swab. Admission for COPD. Critical care time excluding separately billable procedures is 45 minutes. - Lab Data Lab results reviewed: Yes I reviewed the patient's lab results. Result diagrams: 05/25/17 12:14 05/25/17 12:14 Lab Results 05/25/17 05/25/17 05/25/17 Range/Units 12:14 12:14 12:14 WBC 11.4 H (4.3-11.1) K/mcL RBC 4.79 (4.19-5.50) M/mcL Hgb 14.3 (12.9-16.9) g/dL Hct 42.9 (37.5-50.1) % MCV 89.6 (83.0-100.0) fL MCH 29.9 (28.0-33.3) pg MCHC 33.3 (31.6-35.5) g/dL RDW 15.0 H (11.5-14.5) % Plt Count 280 (140-400) K/mcL MPV 9.1 L (9.4-12.4) fL Immature Gran % 0.4 (0-4) % Seg Neutrophils % 74.7 % Lymphocytes % 7.1 % Monocytes % 14.4 % Eosinophils % 2.9 % Basophils % 0.5 % Neutrophils # 8.5 (1.6-8.9) K/mcL Lymphocytes # 0.8 (0.6-4.6) K/mcL Monocytes # 1.7 H (0.0-1.3) K/mcL Eosinophils # 0.3 (0.0-0.6) K/mcL Basophils # 0.1 (0.0-0.2) K/mcL ABG pH (7.32-7.45) pH Units ABG pCO2 (35-45) mmHg ABG pO2 (85-104) mmHg ABG HCO3 (21-27) mEq/L ABG Total CO2 (20-26) mEq/L ABG O2 Saturation (95-98) % ABG Base Excess (-2 to 3) mEq/L O2 Delivery Device Inspired O2 (1-15=lpm [id number]=%) Sodium 136 (136-145) mEq/L Potassium 4.0 (3.5-5.1) mEq/L Chloride 103 (98-107) mEq/L Carbon Dioxide 24 (23-29) mEq/L BUN 20 (6-20) mg/dL Creatinine 0.90 (0.70-1.30) mg/dL Est GFR ( Amer) > 60 (> 60) Est GFR (Non-Af Amer) > 60 (> 60) BUN/Creatinine Ratio 22 (6-26) Glucose 104 (70-105) mg/dL Calculated Osmolality 285 (280-300) Calcium 9.3 (8.6-10.3) mg/dL Troponin I < 0.03 (< 0.04) ng/mL B-Natriuretic Peptide (Less than 100) pg/mL 05/25/17 05/25/17 Range/Units 12:14 12:43 WBC (4.3-11.1) K/mcL RBC (4.19-5.50) M/mcL Hgb (12.9-16.9) g/dL Hct (37.5-50.1) % MCV (83.0-100.0) fL MCH (28.0-33.3) pg MCHC (31.6-35.5) g/dL RDW (11.5-14.5) % Plt Count (140-400) K/mcL MPV (9.4-12.4) fL Immature Gran % (0-4) % Seg Neutrophils % % Lymphocytes % % Monocytes % % Eosinophils % % Basophils % % Neutrophils # (1.6-8.9) K/mcL Lymphocytes # (0.6-4.6) K/mcL Monocytes # (0.0-1.3) K/mcL Eosinophils # (0.0-0.6) K/mcL Basophils # (0.0-0.2) K/mcL ABG pH 7.38 (7.32-7.45) pH Units ABG pCO2 50 H (35-45) mmHg ABG pO2 106 H (85-104) mmHg ABG HCO3 30 H (21-27) mEq/L ABG Total CO2 31 H (20-26) mEq/L ABG O2 Saturation 98 (95-98) % ABG Base Excess 4 H (-2 to 3) mEq/L O2 Delivery Device Cannula Inspired O2 5.0 (1-15=lpm [id number]=%) Sodium (136-145) mEq/L Potassium (3.5-5.1) mEq/L Chloride (98-107) mEq/L Carbon Dioxide (23-29) mEq/L BUN (6-20) mg/dL Creatinine (0.70-1.30) mg/dL Est GFR ( Amer) (> 60) Est GFR (Non-Af Amer) (> 60) BUN/Creatinine Ratio (6-26) Glucose (70-105) mg/dL Calculated Osmolality (280-300) Calcium (8.6-10.3) mg/dL Troponin I (< 0.04) ng/mL B-Natriuretic Peptide 23 (Less than 100) pg/mL - Radiology Data Radiology results reviewed: Yes I reviewed the patient's radiology results. Chest X-Ray 05/25/17 12:12 IMPRESSION: 1. No evidence of acute intrathoracic process. 2. Unchanged prominence of central pulmonary vasculature, which can be seen with pulmonary arterial hypertension. D/ / 05/25/2017 13:01:49 Carolina Saenz / gwen Interpreting Provider: Carolina Saenz - EKG Data EKG attestation: Yes I reviewed and interpreted this EKG. EKG results narrative: EKG demonstrates sinus rhythm with a rate of 89 bpm. Normal axis. Normal intervals. Normal R-wave progression. No gross ST elevations or depressions. No acute ischemic findings. No significant changes from previous EKG dated . S.B.A.R. - S.Leana.AAndrews Situation: Demographics, MOA Background: Presenting Complaint, Relevant PMH, Meds, & Allergies Assessment: Vital Signs, Course and respsone to treatment, Exam Concerns, Patient/Family Expectation, Pertinant Lab Results Recommendation: Barrier(s) to disposition, Recommendation based on pending studies, treatments, or consults Riri Report Given to: Dr. Adriana Menezes Repor Time: 14:40
[2017-05-25 12:50] LABS: ABG Base Excess 4 mEq/L (-2 to 3); ABG HCO3 30 mEq/L (21-27); ABG Oxygen Saturation 98 % (95-98); ABG PCO2 50 mmHg (35-45); ABG PH 7.38 pH Units (7.32-7.45); ABG PO2 106 mmHg (85-104); ABG TCO2 31 mEq/L (20-26)
[2017-05-25 14:06] LABS: BUN/Creatinine Ratio 22 (6-26); Blood Urea Nitrogen 20 mg/dL (6-20); Calcium 9.3 mg/dL (8.6-10.3); Carbon Dioxide 24 mEq/L (23-29); Chloride 103 mEq/L (98-107); Glucose 104 mg/dL (70-105); Osmolality,Calculated 285 (280-300); Sodium 136 mEq/L (136-145); eGFR For African Americans > 60 (> 60); eGFR For Non-African Americans > 60 (> 60)
[2017-05-25] MEDS ORDERED: Levofloxacin 750 MG/150 ML 750 MG/150 ML BAG IVPB ONE (14:28)
[2017-05-25] MEDS ORDERED: Ketorolac 30 MG/ML VIAL IVP ONE (16:21)
--- NOTE | 2017-05-25 16:38 | Electrocardiograph Report ---
[place] [id number] Test Date: 2017-05-25 Pat Name: Christian Cedeno Department: 104 Room: [facility] Gender: M Substance Abuse Counselor: ANNETTE : 1960 Requested By: Angel Chavez Order Number: [id number] Reading MD: Yana Isbell Measurements Intervals [place] Rate: 89 P: 10 IN: 107 QRS: 71 QRSD: 90 T: 78 QT: 331 QTc: 377 Interpretive Statements SINUS RHYTHM POSSIBLE RIGHT VENTRICULAR CONDUCTION DELAY [RSR (QR) IN V1/V2] MODERATE T-WAVE ABNORMALITY, CONSIDER ANTERIOR ISCHEMIA [-0.1+ mV T WAVE IN V3/V4] BASELINE ARTIFACT Electronically Signed On 05-25-2017 16:36:37 EST by Yana Isbell
[2017-05-25] MEDS ORDERED: Naloxone 0.4 MG/ML INJ IVP PRN (16:40)
--- NOTE | 2017-05-25 17:05 | Internal Med History&Physical ---
Date of Encounter: 05/25/17 Time of Encounter: 02:30 Assessment and Plan (1) COPD exacerbation Current visit: Yes Status: Acute -No infiltrate on chest x-ray concerning for pneumonia -Will treat with IV Levaquin in addition to dual nebs and IV Solu-Medrol (2) Acute respiratory failure with hypoxia and hypercapnia Current visit: Yes Status: Acute -Secondary to COPD exacerbation most likely due to bacterial versus viral causes -Will continue supplemental oxygen with an NIPPV as needed -Repeat ABG pending (3) Hypertension Current visit: No Status: Chronic -Continue home medications Qualifiers: Hypertension type: essential hypertension Qualified Code(s): I10 - Essential (primary) hypertension (4) Tobacco abuse Current visit: No Status: Chronic -Smoking cessation (5) DVT prophylaxis Current visit: No Status: Acute -Subcutaneous heparin Internal Medicine - H&P: HPI Chief complaint: Shortness of breath Admitted From: Home Plans for Post Hospital Care: Home History of present illness: Patient is a 57-year-old male with past medical history significant for COPD, hypertension and BPH who presented to the ER on 05/25/17 due to shortness of breath. Patient reports a two-week history of worsening dyspnea in addition to productive cough (greenish sputum). Patient also reported of fever with MAXIMUM TEMPERATURE of 103 last week. In the ER, patient was found to have slight elevation of white blood cell count of 11.4 but in respiratory distress improved on BiPAP; ABG with pH of 7.3 and PCO2 50 in the ER. X-ray negative for infiltrate. Patient will be admitted to the medical surgical floor for COPD exacerbation. Past Med Surg Social Fam HX - Past Medical History Medical history: COPD, GERD, hypertension Psychiatric history: no psych history - Past Surgical History Surgical History: appendectomy, cholecystectomy, herniorrhaphy - Social History Smoking Status: Current every day smoker Packs per day: 1/2 Smokeless Tobacco Status: No Alcohol use: none Drug use: none - Family History Mother Hx Family Cardiac Disorders: Yes (diabetes) Internal Medicine - H&P: Meds Lisinopril-HCTZ 10-12.5 [Prinzide 10-12.5] 1 tab PO DAILY 12/31/15 [History] Tiotropium [Spiriva] 18 mcg IH DAILY 12/31/15 [History] Finasteride [Proscar] 5 mg PO DAILY 05/26/16 [History] Clopidogrel [Plavix] 75 mg PO DAILY #30 tablet 06/05/16 [Rx] Pantoprazole Sodium 40 mg PO DAILY #30 tablet. 06/05/16 [Rx] Aspirin [Lo-Dose Aspirin EC] 81 mg PO DAILY 08/21/16 [History] Metoprolol [Lopressor] 12.5 mg PO BID 05/25/17 [History] 3 Allergy/AdvReac Type Severity Reaction Status Date / Time Penicillins [PCN] Allergy Hives Verified 08/21/16 13:34 [place] AdvReac Anaphylaxis Verified 08/21/16 13:34 All Systems PM: A 10-system review of systems was performed and is negative for pertinent findings except as documented above in the HPI. - Constitutional Vitals: Temp Pulse Resp BP Pulse Ox 97.9 F 89 17 105/71 96 05/25/17 15:42 05/25/17 15:42 05/25/17 15:42 05/25/17 15:42 05/25/17 16:37 General appearance: Present: A&O X 3 - Eye Eye exam: Present: normal appearance - ENT ENT exam: Present: mucous membranes dry - Respiratory Respiratory exam: Present: tachypnea - Cardiovascular Cardiovascular exam: Present: RRR, +S1, +S2. Absent: diastolic murmur, gallop, rubs, systolic murmur - GI/Abdominal GI/Abdominal exam: Present: normal bowel sounds, soft, no peritoneal signs. Absent: distended, tenderness - Extremities Exam Extremities exam: Absent: pedal edema - Neurological Exam Neurological exam: Present: oriented X3 - Psychiatric Psychiatric exam: Present: normal mood Internal Med - H&P Results - Labs CBC & Chem 7: 05/25/17 12:14 05/25/17 12:14
[2017-05-25 18:33] LABS: ABG Base Excess 4 mEq/L (-2 to 3); ABG HCO3 30 mEq/L (21-27); ABG Oxygen Saturation 98 % (95-98); ABG PCO2 48 mmHg (35-45); ABG PH 7.39 pH Units (7.32-7.45); ABG PO2 115 mmHg (85-104); ABG TCO2 31 mEq/L (20-26)
[2017-05-25] MEDS: methylPREDNISolone 125 MG/2 ML VIAL IVP SCH (23:16)
[2017-05-25] MEDS: *HR* Heparin 5,000 UNIT/ML VIAL SQ SCH (23:17)
[2017-05-26] MEDS: *HR* Heparin 5,000 UNIT/ML VIAL SQ SCH ×3 (05:27→13:21)
[2017-05-26 07:21] LABS: Basophils % 0.1 %; Hemoglobin 14.1 g/dL (12.9-16.9); Immature Granulocytes % 1.2 % (0-4); Lymphocytes # 1.2 K/mcL (0.6-4.6); Lymphocytes % 11.5 %; Mean Corpuscular HGB Conc 32.8 g/dL (31.6-35.5); Mean Corpuscular Hemoglobin 29.6 pg (28.0-33.3); Mean Corpuscular Volume 90.1 fL (83.0-100.0); Mean Platelet Volume 9.7 fL (9.4-12.4); Monocytes # 0.7 K/mcL (0.0-1.3); Monocytes % 7.1 %; Neutrophils # 8.1 K/mcL (1.6-8.9); Platelet Count 279 K/mcL (140-400); Red Blood Count 4.77 M/mcL (4.19-5.50); Segmented Neutrophils % 80.1 %
[2017-05-26 08:05] LABS: BUN/Creatinine Ratio 38 (6-26); Blood Urea Nitrogen 31 mg/dL (6-20); Calcium 9.1 mg/dL (8.6-10.3); Carbon Dioxide 29 mEq/L (23-29); Chloride 99 mEq/L (98-107); Glucose 126 mg/dL (70-105); Osmolality,Calculated 284 (280-300); Potassium 4.4 mEq/L (3.5-5.1); Sodium 133 mEq/L (136-145); eGFR For African Americans > 60 (> 60); eGFR For Non-African Americans > 60 (> 60)
[2017-05-26] MEDS ORDERED: Tiotropium 18 MCG inhalation IH SCH (09:00)
[2017-05-26] MEDS: Finasteride 5 MG TABLET PO SCH (09:18)
[2017-05-26] MEDS: Aspirin Enteric Coated 81 MG Tablet PO SCH (09:18)
[2017-05-26] MEDS: Levofloxacin 750 MG/150 ML 750 MG/150 ML BAG IVPB SCH (09:19)
[2017-05-26] MEDS: methylPREDNISolone 125 MG/2 ML VIAL IVP SCH ×2 (09:19→18:15)
--- NOTE | 2017-05-26 11:10 | Internal Med Progress Note ---
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 Original Note: <Facundo Rizvi - Last Filed: 05/26/17 15:15> Date of Encounter: 05/26/17 Time of Encounter: 10:00 - Assessment and plan (1) COPD exacerbation Current Visit: Yes Status: Acute Assessment and plan: Patient presented with acute COPD exacerbation, was admitted one year ago for right lower lobe pneumonia. Admitted with increased shortness of breath, increased sputum production and change in sputum color. - Patient has a barrel chest, secondary muscle use, increased work of breathing tachypnea and diffusely diminished breath sounds with expiratory wheeze. - Prior to admission patient had diminished respiratory function states that he can walk roughly 250 feet before coming so short of breath he had to sit down. This would be on a good day. - Denies seeing a desk reporter - Uses Spiriva and occasional albuterol inhaler at home. Patient compliance unknown Plan: - Continue nasal cannula oxygen wean as tolerated, patient may require home oxygen will need home oxygen 6 minute walk test prior to discharge. - Continue IV steroids with plan to reduce to by mouth prednisone when tolerated - Continue breathing treatments with duo nebs, albuterol nebulizer - Continue Levaquin total 5 days - Respiratory infectious panel pending. - Patient will need follow-up with pulmonology after discharge - Discussed tobacco cessation. (2) Acute respiratory failure with hypoxia and hypercapnia Current Visit: Yes Status: Acute Assessment and plan: 57-year-old male significant smoking history. No previous formal diagnosis of COPD but clinically has a barrel chest, recurrent shortness of breath COPD exacerbation picture clinically. - Continue plan as discussed above. (3) Hypertension Current Visit: Yes Status: Chronic Assessment and plan: Patient has a history of hypertension, medications include Lopressor 12.5 mg by mouth twice a day, lisinopril hydrochlorothiazide 1 tab by mouth daily. - BP stable on current home medications Plan: Continue current home medications. - Monitor blood pressure as per protocol. Qualifiers: Hypertension type: essential hypertension Qualified Code(s): I10 - Essential (primary) hypertension (4) Tobacco abuse Current Visit: Yes Status: Chronic Assessment and plan: Tobacco cessation discussed. (5) DVT prophylaxis Current Visit: Yes Status: Acute Assessment and plan: Subcutaneous heparin - Subjective Interval history: Mr. Cedeno 57yo M seen and evaluated bedside this morning. He complains of shortness of breath compared to yesterday with much improvement. He appears uncomfortable and states that he just feels he cannot catch his breath. At home he states that he cannot walk more than 250 feet without becoming so short of breath he needs to sit down to catch his breath. He does smoke half a pack a day but may be more but was unable to smoke any cigarettes for the last 3 days due to the shortness of breath. 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 He denies seeing a desk reporter and only follows up with his primary care physician. - Constitutional Vitals: Temp Pulse Resp BP Pulse Ox 97.6 F 80 16 105/73 92 05/26/17 07:00 05/26/17 10:41 05/26/17 10:41 05/26/17 10:41 05/26/17 10:41 General appearance: Present: A&O X 3 Exam: General: Patient alert, awake, oriented 3, interactive, in no acute distress HEENT: Normocephalic, atraumatic, pupils equal reactive to light, nasal cavity patent and open septum median position, oral mucosa moist, uvula midline, neck supple trachea midline no palpable lymphadenopathy, no thyromegaly. Chest: Barrel chest, tachypnea, signs of secondary muscle use including scalenes and sternocleidomastoid muscles. Patient demonstrating retractions with inspiration. Cardiac: Regular rate and rhythm, positive S1 and S2. no bruits appreciated bilateral carotids, Radial pulses 2+ bilateral, posterior tibial and dorsal pedal pulses 2+ bilateral. Respiratory: Diffusely diminished breath sounds with inspiratory and expiratory respiration, expiratory wheeze diffusely. Abdomen: Soft, mild tenderness in left upper quadrant, positive bowel sounds, no palpable masses appreciated on examination Extremities: Symmetric bilateral, bilateral lower extremities without erythema or edema patient moving all 4 extremities spontaneously. Neurologic: No focal deficits appreciated on examination. Face symmetric, muscle strength symmetric bilateral upper and lower extremities. Internal Medicine: Result - Labs CBC & Chem 7: 05/26/17 06:51 05/26/17 06:51 Labs: Short CBC 05/26/17 Range/Units 06:51 WBC 10.1 (4.3-11.1) K/mcL Hgb 14.1 (12.9-16.9) g/dL Hct 43.0 (37.5-50.1) % Plt Count 279 (140-400) K/mcL Neutrophils # 8.1 (1.6-8.9) K/mcL BMP 05/26/17 06:51 Sodium 133 L Potassium 4.4 Chloride 99 Carbon Dioxide 29 BUN 31 H Creatinine 0.81 Glucose 126 H Calcium 9.1 - ABG Interpretation ABG results: ABG ABG pH 7.39 pH Units (7.32-7.45) 05/25/17 18:30 ABG pCO2 48 mmHg (35-45) H 05/25/17 18:30 ABG pO2 115 mmHg (85-104) H 05/25/17 18:30 ABG O2 Saturation 98 % (95-98) 05/25/17 18:30 Consult Discharge Plan - Plan Referrals: Dara Perry MD [Primary Care Provider] - <Hang Palmer - Last Filed: 05/26/17 19:06> Date of Encounter: 05/26/17 - Assessment and plan (1) Acute respiratory failure with hypoxia and hypercapnia Current Visit: Yes Status: Acute (2) COPD exacerbation Current Visit: Yes Status: Acute (3) Influenza A Current Visit: Yes Status: Acute (4) Hypertension Current Visit: Yes Status: Chronic Qualifiers: Hypertension type: essential hypertension Qualified Code(s): I10 - Essential (primary) hypertension (5) Tobacco abuse Current Visit: Yes Status: Chronic - Constitutional Vitals: Temp Pulse Resp BP Pulse Ox 98 F 73 16 102/71 92 05/26/17 15:00 05/26/17 15:00 05/26/17 15:00 05/26/17 15:00 05/26/17 15:00 Internal Medicine: Result - Labs CBC & Chem 7: 05/26/17 06:51 05/26/17 06:51 Labs: Short CBC 05/26/17 Range/Units 06:51 WBC 10.1 (4.3-11.1) K/mcL Hgb 14.1 (12.9-16.9) g/dL Hct 43.0 (37.5-50.1) % Plt Count 279 (140-400) K/mcL Neutrophils # 8.1 (1.6-8.9) K/mcL BMP 05/26/17 06:51 Sodium 133 L Potassium 4.4 Chloride 99 Carbon Dioxide 29 BUN 31 H Creatinine 0.81 Glucose 126 H Calcium 9.1 - ABG Interpretation ABG results: ABG ABG pH 7.39 pH Units (7.32-7.45) 05/25/17 18:30 ABG pCO2 48 mmHg (35-45) H 05/25/17 18:30 ABG pO2 115 mmHg (85-104) H 05/25/17 18:30 ABG O2 Saturation 98 % (95-98) 05/25/17 18:30 - Attending Attestation I examined this patient and my medical decision-making was reviewed with the Resident Physician on 05/26/17. I agree with the documented findings, disposition and treatment plan as described except to the extent set forth below. Mr Cedeno is currently admitted for resp failure and COPD. He remains moderate to high risk due to potential for worsening clinical status. Mr Akers feels he is breathing somewhat better. He has frontal headache. No fever today. Exam alert. Moderate resp distress Mucus membranes dry Heart reg Diffuse wheeze Abd soft Flu positive I/P 1. Influenza A 2. COPD Further diagnoses and plan as above.
[2017-05-26] MEDS ORDERED: Ipratropium/Albuterol Neb 3 ML IH PRN (14:19)
[2017-05-26] MEDS ORDERED: Albuterol 2.5 MG/3 ML NEBULIZER IH PRN (14:19)
[2017-05-26 15:41] LABS: Adenovirus Not Detected (Not Detect); Bordetella Pertussis Not Detected (Not Detect); Chlamydophila pneumoniae Not Detected (Not Detect); Coronavirus 229E Not Detected (Not Detect); Coronavirus HKU1 Not Detected (Not Detect); Coronavirus NL63 Not Detected (Not Detect); Coronavirus OC43 Not Detected (Not Detect); Human Metapneumovirus Not Detected (Not Detect); Human Rhinovirus/Enterovirus Not Detected (Not Detect); Influenza A Subtype 2009 H1 Not Detected (Not Detect); Influenza A Untypeable Not Detected (Not Detect); Influenza B Not Detected (Not Detect); Mycoplasma pneumoniae Not Detected (Not Detect); Parainfluenza Virus 1 Not Detected (Not Detect); Parainfluenza Virus 2 Not Detected (Not Detect); Parainfluenza Virus 3 Not Detected (Not Detect); Parainfluenza Virus 4 Not Detected (Not Detect); Respiratory Syncytial Virus Not Detected (Not Detect)
[2017-05-26] MEDS ORDERED: *HR* HYDROcodone/Acet 5/325 mg TABLET PO ONE (22:41)
[2017-05-27] MEDS: methylPREDNISolone 125 MG/2 ML VIAL IVP SCH ×3 (01:31→17:51)
[2017-05-27 05:29] LABS: Basophils % 0.1 %; Hematocrit 42.4 % (37.5-50.1); Hemoglobin 14.2 g/dL (12.9-16.9); Immature Granulocytes % 0.4 % (0-4); Lymphocytes # 1.3 K/mcL (0.6-4.6); Lymphocytes % 7.6 %; Mean Corpuscular HGB Conc 33.5 g/dL (31.6-35.5); Mean Corpuscular Hemoglobin 30.1 pg (28.0-33.3); Mean Corpuscular Volume 89.8 fL (83.0-100.0); Mean Platelet Volume 9.7 fL (9.4-12.4); Monocytes # 1.2 K/mcL (0.0-1.3); Monocytes % 6.6 %; Neutrophils # 14.9 K/mcL (1.6-8.9); Platelet Count 269 K/mcL (140-400); Red Blood Count 4.72 M/mcL (4.19-5.50); Red Cell Distribution Width 15.3 % (11.5-14.5); Segmented Neutrophils % 85.3 %
[2017-05-27 05:45] LABS: Alanine Aminotransferase 14 Units/L (7-52); Albumin 3.6 g/dL (3.5-5.7); Albumin/Globulin Ratio 1.4 (1.1-2.2); Alkaline Phosphatase 53 Units/L (34-104); Aspartate Amino Transferase 24 Units/L (13-39); BUN/Creatinine Ratio 49 (6-26); Bilirubin,Total 0.3 mg/dL (0.3-1.0); Blood Urea Nitrogen 39 mg/dL (6-20); Calcium 8.8 mg/dL (8.6-10.3); Carbon Dioxide 29 mEq/L (23-29); Chloride 102 mEq/L (98-107); Globulin 2.6 g/dL (2.4-3.5); Glucose 130 mg/dL (70-105); Osmolality,Calculated 293 (280-300); Potassium 4.6 mEq/L (3.5-5.1); Sodium 136 mEq/L (136-145); Total Protein 6.2 g/dL (6.4-8.9); eGFR For African Americans > 60 (> 60); eGFR For Non-African Americans > 60 (> 60)
[2017-05-27] MEDS: *HR* Heparin 5,000 UNIT/ML VIAL SQ SCH ×3 (05:54→22:17)
[2017-05-27] MEDS: Aspirin Enteric Coated 81 MG Tablet PO SCH (08:41)
[2017-05-27] MEDS: Finasteride 5 MG TABLET PO SCH (08:42)
[2017-05-27] MEDS: Levofloxacin 750 MG/150 ML 750 MG/150 ML BAG IVPB SCH (08:45)
[2017-05-27] MEDS ORDERED: *HR* HYDROcodone/Acet 5/325 mg TABLET PO PRN (11:24)
--- NOTE | 2017-05-27 11:38 | Internal Med Progress Note ---
<VaibhavdayanaraFacundo gutierres - Last Filed: 05/27/17 17:47> Date of Encounter: 05/27/17 Time of Encounter: 11:19 - Assessment and plan (1) COPD exacerbation Current Visit: Yes Status: Acute Assessment and plan: Patient presented with acute COPD exacerbation, was admitted one year ago for right lower lobe pneumonia. Admitted with increased shortness of breath, increased sputum production and change in sputum color. - Patient has a barrel chest, secondary muscle use, increased work of breathing tachypnea and diffusely diminished breath sounds with expiratory wheeze. - Prior to admission patient had diminished respiratory function states that he can walk roughly 250 feet before coming so short of breath he had to sit down. This would be on a good day. - Denies seeing a clinical esthetician - Uses Spiriva and occasional albuterol inhaler at home. Patient compliance unknown 05/27: Mild improvement in auscultation, Clinically improved. Not stable for discharge. Influenza A positive. Plan: - Continue nasal cannula oxygen wean as tolerated, patient may require home oxygen will need home oxygen 6 minute walk test prior to discharge. - Continue IV steroids reduced frequency today. - Continue breathing treatments with duo nebs, albuterol nebulizer - Continue Levaquin total 5 days - Patient will need follow-up with pulmonology after discharge - Discussed tobacco cessation. (2) Acute respiratory failure with hypoxia and hypercapnia Current Visit: Yes Status: Acute Assessment and plan: 57-year-old male significant smoking history. No previous formal diagnosis of COPD but clinically has a barrel chest, recurrent shortness of breath COPD exacerbation picture clinically. - Continue plan as discussed above. (3) Influenza A Current Visit: Yes Status: Acute Assessment and plan: Influenza A positive - On Tamiflu (day 2) (4) Hypertension Current Visit: Yes Status: Chronic Assessment and plan: Patient has a history of hypertension, medications include Lopressor 12.5 mg by mouth twice a day, lisinopril hydrochlorothiazide 1 tab by mouth daily. - BP stable on current home medications Plan: Continue current home medications. - Monitor blood pressure as per protocol. Qualifiers: Hypertension type: essential hypertension Qualified Code(s): I10 - Essential (primary) hypertension (5) Tobacco abuse Current Visit: Yes Status: Chronic Assessment and plan: Tobacco cessation discussed. (6) DVT prophylaxis Current Visit: Yes Status: Acute Assessment and plan: Subcutaneous heparin - Subjective Interval history: Mr. Cedeno 57yo M seen and evaluated bedside this morning. He states that his respiratory status slightly improved compared to yesterday but he still is very short of breath not back to baseline. He states that he has had decreased sputum production compared to yesterday but still feels like he needs to cough up sputum. He is tolerating oral intake and denying any discomfort with bowel movements. Treatment for chronic back pain tolerated. No other concerns. - Constitutional Vitals: Temp Pulse Resp BP Pulse Ox 97.4 F L 58 18 116/79 91 05/27/17 08:08 05/27/17 08:08 05/27/17 05:21 05/27/17 08:08 05/27/17 08:08 General appearance: Present: A&O X 3 Exam: General: Patient alert, awake, oriented 3, interactive, in no acute distress HEENT: Normocephalic, atraumatic, pupils equal reactive to light, nasal cavity patent and open septum median position, oral mucosa moist, uvula midline, neck supple trachea midline no palpable lymphadenopathy, no thyromegaly. Chest: Barrel chest, mild increased respiratory rate, improved compared to yesterday. signs of secondary muscle use including scalenes and sternocleidomastoid muscles. Patient demonstrating retractions with inspiration. Cardiac: Regular rate and rhythm, positive S1 and S2. no bruits appreciated bilateral carotids, Radial pulses 2+ bilateral, posterior tibial and dorsal pedal pulses 2+ bilateral. Respiratory: Mild expiratory wheeze, clear to auscultation lung bases.. Abdomen: Soft, mild tenderness in left upper quadrant, positive bowel sounds, no palpable masses appreciated on examination Extremities: Symmetric bilateral, bilateral lower extremities without erythema or edema patient moving all 4 extremities spontaneously. Neurologic: No focal deficits appreciated on examination. Face symmetric, muscle strength symmetric bilateral upper and lower extremities. Internal Medicine: Result - Labs CBC & Chem 7: 05/27/17 04:48 05/27/17 04:48 Labs: Short CBC 05/27/17 Range/Units 04:48 WBC 17.5 H D (4.3-11.1) K/mcL Hgb 14.2 (12.9-16.9) g/dL Hct 42.4 (37.5-50.1) % Plt Count 269 (140-400) K/mcL Neutrophils # 14.9 H (1.6-8.9) K/mcL BMP 05/27/17 04:48 Sodium 136 Potassium 4.6 Chloride 102 Carbon Dioxide 29 BUN 39 H Creatinine 0.80 Glucose 130 H Calcium 8.8 Liver Function 05/27/17 Range/Units 04:48 Total Bilirubin 0.3 (0.3-1.0) mg/dL AST 24 (13-39) Units/L ALT 14 (7-52) Units/L Alkaline Phosphatase 53 (34-104) Units/L Albumin 3.6 (3.5-5.7) g/dL - ABG Interpretation ABG results: ABG ABG pH 7.39 pH Units (7.32-7.45) 05/25/17 18:30 ABG pCO2 48 mmHg (35-45) H 05/25/17 18:30 ABG pO2 115 mmHg (85-104) H 05/25/17 18:30 ABG O2 Saturation 98 % (95-98) 05/25/17 18:30 Consult Discharge Plan - Plan Referrals: Dara Perry MD [Primary Care Provider] - <Hang Palmer - Last Filed: 05/27/17 19:12> Date of Encounter: 05/27/17 - Assessment and plan (1) Acute respiratory failure with hypoxia and hypercapnia Current Visit: Yes Status: Acute (2) COPD exacerbation Current Visit: Yes Status: Acute (3) Influenza A Current Visit: Yes Status: Acute (4) Hypertension Current Visit: Yes Status: Chronic Qualifiers: Hypertension type: essential hypertension Qualified Code(s): I10 - Essential (primary) hypertension (5) Tobacco abuse Current Visit: Yes Status: Chronic - Constitutional Vitals: Temp Pulse Resp BP Pulse Ox 97.4 F L 62 18 101/71 92 05/27/17 12:34 05/27/17 16:47 05/27/17 16:03 05/27/17 16:47 05/27/17 16:47 Internal Medicine: Result - Labs CBC & Chem 7: 05/27/17 04:48 05/27/17 04:48 Labs: Short CBC 05/27/17 Range/Units 04:48 WBC 17.5 H D (4.3-11.1) K/mcL Hgb 14.2 (12.9-16.9) g/dL Hct 42.4 (37.5-50.1) % Plt Count 269 (140-400) K/mcL Neutrophils # 14.9 H (1.6-8.9) K/mcL BMP 05/27/17 04:48 Sodium 136 Potassium 4.6 Chloride 102 Carbon Dioxide 29 BUN 39 H Creatinine 0.80 Glucose 130 H Calcium 8.8 Liver Function 05/27/17 Range/Units 04:48 Total Bilirubin 0.3 (0.3-1.0) mg/dL AST 24 (13-39) Units/L ALT 14 (7-52) Units/L Alkaline Phosphatase 53 (34-104) Units/L Albumin 3.6 (3.5-5.7) g/dL - ABG Interpretation ABG results: ABG ABG pH 7.39 pH Units (7.32-7.45) 05/25/17 18:30 ABG pCO2 48 mmHg (35-45) H 05/25/17 18:30 ABG pO2 115 mmHg (85-104) H 05/25/17 18:30 ABG O2 Saturation 98 % (95-98) 05/25/17 18:30 - Attending Attestation I examined this patient and my medical decision-making was reviewed with the Resident Physician on 05/27/17. I agree with the documented findings, disposition and treatment plan as described except to the extent set forth below. Mr Cedeno is currently admitted for acute resp failure and COPD. He remains moderate to high risk due to potential for worsening clinical status. Mr Cedeno is doing a little better but still very dyspneic. No fever. Less cough. Influenza positive. Exam alert. Mod resp distress Mucus membranes dry Heart reg Lungs with scattered wheeze Abd soft No edema I/P 1. Resp failure 2. COPD Further diagnoses and plan as above.
[2017-05-27] MEDS: Ipratropium/Albuterol Neb 3 ML IH SCH ×3 (12:49→21:35)
[2017-05-28] MEDS: Ipratropium/Albuterol Neb 3 ML IH SCH ×4 (03:14→23:25)
[2017-05-28] MEDS: methylPREDNISolone 125 MG/2 ML VIAL IVP SCH (04:53)
[2017-05-28 06:22] LABS: Basophils % 0.1 %; Hematocrit 41.7 % (37.5-50.1); Hemoglobin 14.3 g/dL (12.9-16.9); Immature Granulocytes % 0.6 % (0-4); Lymphocytes # 1.2 K/mcL (0.6-4.6); Lymphocytes % 7.8 %; Mean Corpuscular HGB Conc 34.3 g/dL (31.6-35.5); Mean Corpuscular Hemoglobin 30.8 pg (28.0-33.3); Mean Corpuscular Volume 89.9 fL (83.0-100.0); Mean Platelet Volume 9.8 fL (9.4-12.4); Monocytes # 1.4 K/mcL (0.0-1.3); Monocytes % 8.8 %; Neutrophils # 13.2 K/mcL (1.6-8.9); Platelet Count 271 K/mcL (140-400); Red Blood Count 4.64 M/mcL (4.19-5.50); Red Cell Distribution Width 15.2 % (11.5-14.5); Segmented Neutrophils % 82.7 %
[2017-05-28 06:45] LABS: Alanine Aminotransferase 12 Units/L (7-52); Albumin 3.6 g/dL (3.5-5.7); Albumin/Globulin Ratio 1.4 (1.1-2.2); Alkaline Phosphatase 48 Units/L (34-104); Aspartate Amino Transferase 19 Units/L (13-39); BUN/Creatinine Ratio 44 (6-26); Bilirubin,Total 0.3 mg/dL (0.3-1.0); Blood Urea Nitrogen 34 mg/dL (6-20); Carbon Dioxide 29 mEq/L (23-29); Chloride 102 mEq/L (98-107); Globulin 2.6 g/dL (2.4-3.5); Glucose 118 mg/dL (70-105); Osmolality,Calculated 291 (280-300); Potassium 4.4 mEq/L (3.5-5.1); Sodium 136 mEq/L (136-145); Total Protein 6.2 g/dL (6.4-8.9); eGFR For African Americans > 60 (> 60); eGFR For Non-African Americans > 60 (> 60)
[2017-05-28] MEDS: Levofloxacin 750 MG/150 ML 750 MG/150 ML BAG IVPB SCH (09:25)
[2017-05-28] MEDS: Finasteride 5 MG TABLET PO SCH (09:25)
[2017-05-28] MEDS: Aspirin Enteric Coated 81 MG Tablet PO SCH (09:25)
[2017-05-28] MEDS: *HR* Heparin 5,000 UNIT/ML VIAL SQ SCH ×2 (09:26→18:21)
--- NOTE | 2017-05-28 11:09 | Internal Med Progress Note ---
<Facundo Rizvi - Last Filed: 05/28/17 11:02> Date of Encounter: 05/28/17 Time of Encounter: 11:02 - Assessment and plan (1) COPD exacerbation Current Visit: Yes Status: Acute Assessment and plan: Patient presented with acute COPD exacerbation, was admitted one year ago for right lower lobe pneumonia. Admitted with increased shortness of breath, increased sputum production and change in sputum color. - Patient has a barrel chest, secondary muscle use, increased work of breathing tachypnea and diffusely diminished breath sounds with expiratory wheeze. - Prior to admission patient had diminished respiratory function states that he can walk roughly 250 feet before coming so short of breath he had to sit down. This would be on a good day. - Denies seeing a direct care staffer - Uses Spiriva and occasional albuterol inhaler at home. Patient compliance unknown 05/27: Mild improvement in auscultation, Clinically improved. Not stable for discharge. Influenza A positive. 05/28: Continues to demonstrate respiratory improvement. Clinically stable. Plan: - Continue nasal cannula oxygen wean as tolerated, patient may require home oxygen will need home oxygen 6 minute walk test prior to discharge. - Prednisone 40 mg by mouth total 5 days. - Continue breathing treatments with duo nebs, albuterol nebulizer - Continue Levaquin total 5 days - Patient will need follow-up with pulmonology after discharge - Discussed tobacco cessation. (2) Acute respiratory failure with hypoxia and hypercapnia Current Visit: Yes Status: Acute Assessment and plan: 57-year-old male significant smoking history. No previous formal diagnosis of COPD but clinically has a barrel chest, recurrent shortness of breath COPD exacerbation picture clinically. - Continue plan as discussed above. (3) Influenza A Current Visit: Yes Status: Acute Assessment and plan: Influenza A positive - On Tamiflu (day 3) (4) Hypertension Current Visit: Yes Status: Chronic Assessment and plan: Patient has a history of hypertension, medications include Lopressor 12.5 mg by mouth twice a day, lisinopril hydrochlorothiazide 1 tab by mouth daily. - BP stable on current home medications Plan: Continue current home medications. - Monitor blood pressure as per protocol. Qualifiers: Hypertension type: essential hypertension Qualified Code(s): I10 - Essential (primary) hypertension (5) Tobacco abuse Current Visit: Yes Status: Chronic Assessment and plan: Tobacco cessation discussed. (6) DVT prophylaxis Current Visit: Yes Status: Acute Assessment and plan: Subcutaneous heparin - Subjective Interval history: Mr. Cedeno 57yo M seen and evaluated bedside this morning. He is alert awake and interactive in no acute distress. He states that his restrictive status is much improved not back to baseline but feeling much better. He does ask when he could be discharged home. He has no other concerning symptoms or signs. His eating drinking passing bowel movements and without concern. Denies any fevers, chills, diaphoresis. - Constitutional Vitals: Temp Pulse Resp BP Pulse Ox 98.1 F 66 18 103/78 91 05/28/17 08:00 05/28/17 08:00 05/28/17 10:41 05/28/17 08:00 05/28/17 10:41 General appearance: Present: A&O X 3 Exam: General: Patient alert, awake, oriented 3, interactive, in no acute distress HEENT: Normocephalic, atraumatic, pupils equal reactive to light, nasal cavity patent and open septum median position, oral mucosa moist, uvula midline, neck supple trachea midline no palpable lymphadenopathy, no thyromegaly. Chest: Barrel chest, mild increased respiratory rate, improved compared to yesterday. signs of secondary muscle use including scalenes and sternocleidomastoid muscles. Patient demonstrating retractions with inspiration. Cardiac: Regular rate and rhythm, positive S1 and S2. no bruits appreciated bilateral carotids, Radial pulses 2+ bilateral, posterior tibial and dorsal pedal pulses 2+ bilateral. Respiratory: Mild expiratory wheeze, clear to auscultation lung bases.. Abdomen: Soft, mild tenderness in left upper quadrant, positive bowel sounds, no palpable masses appreciated on examination Extremities: Symmetric bilateral, bilateral lower extremities without erythema or edema patient moving all 4 extremities spontaneously. Neurologic: No focal deficits appreciated on examination. Face symmetric, muscle strength symmetric bilateral upper and lower extremities. Internal Medicine: Result - Labs CBC & Chem 7: 05/28/17 05:53 05/28/17 05:53 Labs: Short CBC 05/28/17 Range/Units 05:53 WBC 16.0 H (4.3-11.1) K/mcL Hgb 14.3 (12.9-16.9) g/dL Hct 41.7 (37.5-50.1) % Plt Count 271 (140-400) K/mcL Neutrophils # 13.2 H (1.6-8.9) K/mcL BMP 05/28/17 05:53 Sodium 136 Potassium 4.4 Chloride 102 Carbon Dioxide 29 BUN 34 H Creatinine 0.77 Glucose 118 H Calcium 9.0 Liver Function 05/28/17 Range/Units 05:53 Total Bilirubin 0.3 (0.3-1.0) mg/dL AST 19 (13-39) Units/L ALT 12 (7-52) Units/L Alkaline Phosphatase 48 (34-104) Units/L Albumin 3.6 (3.5-5.7) g/dL - ABG Interpretation ABG results: ABG ABG pH 7.39 pH Units (7.32-7.45) 05/25/17 18:30 ABG pCO2 48 mmHg (35-45) H 05/25/17 18:30 ABG pO2 115 mmHg (85-104) H 05/25/17 18:30 ABG O2 Saturation 98 % (95-98) 05/25/17 18:30 Consult Discharge Plan - Plan Instructions: Chest Pain (DC), Influenza (DC), Influenza (GEN), Chronic Obstructive Pulmonary Disease (DC), Sepsis (DC), Chronic Hypertension (DC), Pneumonia (DC), Cigarette Smoking and Your Health, [employer] (GEN) Referrals: Dara Perry MD [Primary Care Provider] - <Hang Palemr A - Last Filed: 05/28/17 17:33> Date of Encounter: 05/28/17 - Assessment and plan (1) Acute respiratory failure with hypoxia and hypercapnia Current Visit: Yes Status: Resolved (2) COPD exacerbation Current Visit: Yes Status: Acute (3) Influenza A Current Visit: Yes Status: Acute (4) Hypertension Current Visit: Yes Status: Chronic Qualifiers: Hypertension type: essential hypertension Qualified Code(s): I10 - Essential (primary) hypertension (5) Tobacco abuse Current Visit: Yes Status: Chronic (6) Chronic respiratory failure with hypoxia Current Visit: Yes Status: Chronic - Constitutional Vitals: Temp Pulse Resp BP Pulse Ox 97.7 F 62 22 111/69 96 05/28/17 16:00 05/28/17 16:00 05/28/17 16:08 05/28/17 16:00 05/28/17 16:08 Internal Medicine: Result - Labs CBC & Chem 7: 05/28/17 05:53 05/28/17 05:53 Labs: Short CBC 05/28/17 Range/Units 05:53 WBC 16.0 H (4.3-11.1) K/mcL Hgb 14.3 (12.9-16.9) g/dL Hct 41.7 (37.5-50.1) % Plt Count 271 (140-400) K/mcL Neutrophils # 13.2 H (1.6-8.9) K/mcL BMP 05/28/17 05:53 Sodium 136 Potassium 4.4 Chloride 102 Carbon Dioxide 29 BUN 34 H Creatinine 0.77 Glucose 118 H Calcium 9.0 Liver Function 05/28/17 Range/Units 05:53 Total Bilirubin 0.3 (0.3-1.0) mg/dL AST 19 (13-39) Units/L ALT 12 (7-52) Units/L Alkaline Phosphatase 48 (34-104) Units/L Albumin 3.6 (3.5-5.7) g/dL - ABG Interpretation ABG results: ABG ABG pH 7.39 pH Units (7.32-7.45) 05/25/17 18:30 ABG pCO2 48 mmHg (35-45) H 05/25/17 18:30 ABG pO2 115 mmHg (85-104) H 05/25/17 18:30 ABG O2 Saturation 98 % (95-98) 05/25/17 18:30 - Attending Attestation I examined this patient and my medical decision-making was reviewed with the Resident Physician on 05/28/17. I agree with the documented findings, disposition and treatment plan as described except to the extent set forth below. Mr Cedeno is currently admitted for acute resp failure, COPD and influenza. He remains moderate to high risk due to potential for worsening clinical status. Mr Cedeno is slowly improving. No fever now. Less dyspnea. Has qualified for home oxygen. Has been sitting up some and moving around. Exam Alert. More comfortable breathing today Mucus membranes dry Heart reg Lungs diminished with less wheeze Abd soft I/P 1. Hypoxia 2. COPD 3. Influenza Further diagnoses and plan as above.
[2017-05-28] MEDS: predniSONE 20 MG TABLET PO SCH (13:11)
[2017-05-29] MEDS: *HR* Heparin 5,000 UNIT/ML VIAL SQ SCH ×2 (03:46→08:35)
[2017-05-29] MEDS: Ipratropium/Albuterol Neb 3 ML IH SCH ×2 (04:55→11:01)
[2017-05-29 08:24] VITALS: BP 116/75
[2017-05-29] MEDS: Finasteride 5 MG TABLET PO SCH (08:35)
[2017-05-29] MEDS: Aspirin Enteric Coated 81 MG Tablet PO SCH (08:35)
[2017-05-29] MEDS: predniSONE 20 MG TABLET PO SCH (08:35)
[2017-05-29] MEDS ORDERED: levoFLOXacin 750 MG TABLET PO SCH (09:00)
--- NOTE | 2017-05-29 11:10 | Discharge Summary ---
<Facundo Rizvi - Last Filed: 05/29/17 11:02> Date of Encounter: 05/29/17 Time of Encounter: 11:02 - Discharge Diagnosis (1) COPD exacerbation Priority: Primary Status: Acute (2) Acute respiratory failure with hypoxia and hypercapnia Priority: Primary Status: Resolved (3) Influenza A Priority: Primary Status: Acute (4) Hypertension Priority: Secondary Status: Chronic Qualifiers: Hypertension type: essential hypertension Qualified Code(s): I10 - Essential (primary) hypertension (5) Tobacco abuse Priority: Secondary Status: Chronic (6) DVT prophylaxis Priority: Secondary Status: Acute - Discharge Medications Prescriptions: levoFLOXacin [Levaquin] 750 mg PO DAILY 2 Days #2 tablet Oseltamivir [Tamiflu] 75 mg PO BID 2 Days #4 capsule predniSONE [PredniSONE] 40 mg PO DAILY 4 Days #8 tablet Home Medications: Lisinopril-HCTZ 10-12.5 [Prinzide 10-12.5] 1 tab PO DAILY 12/31/15 [History] Tiotropium [Spiriva] 18 mcg IH DAILY 12/31/15 [History] Finasteride [Proscar] 5 mg PO DAILY 05/26/16 [History] Clopidogrel [Plavix] 75 mg PO DAILY #30 tablet 06/05/16 [Rx] Pantoprazole Sodium 40 mg PO DAILY #30 tablet. 06/05/16 [Rx] Aspirin [Lo-Dose Aspirin EC] 81 mg PO DAILY 08/21/16 [History] Metoprolol [Lopressor] 12.5 mg PO BID 05/25/17 [History] Oseltamivir [Tamiflu] 75 mg PO BID 2 Days #4 capsule 05/29/17 [Rx] levoFLOXacin [Levaquin] 750 mg PO DAILY 2 Days #2 tablet 05/29/17 [Rx] predniSONE [PredniSONE] 40 mg PO DAILY 4 Days #8 tablet 05/29/17 [Rx] Allergies/Adverse Reactions: 3 Allergy/AdvReac Type Severity Reaction Status Date / Time Penicillins [PCN] Allergy Hives Verified 08/21/16 13:34 Lavinia AdvReac Anaphylaxis Verified 08/21/16 13:34 Date of admission: 05/27/17 19:08 Primary care physician: Dara Mull[facility] Discharging clinician: Facundo Rizvi Anticipated date of discharge: 05/29/17 - Patient Status Disposition: Home, Self-Care Condition: Fair Functional capacity at discharge: independent ambulation Overall status at discharge: patient is progressing back to baseline - Discharge Instructions Instructions: Chest Pain (DC), Acute Respiratory Distress Syndrome (DC), Influenza (DC), Influenza (GEN), Chronic Obstructive Pulmonary Disease (DC), Sepsis (DC), Chronic Hypertension (DC), Pneumonia (DC), Cigarette Smoking and Your Health, Land Planner (GEN) Follow Up With: Dara Perry MD [Primary Care Provider] - Aayush Almanzar MD [Partnered Physician] - Additional Instructions: 1. Follow-up with your primary care provider in the next 3-5 days 2. Take all prescriptions as prescribed, any concerns or questions contact her primary care provider. Wear oxygen as prescribed Quit smoking 3. Return to the emergency department if: Worsening of respiratory status, continued shortness of breath, any other concerning medical symptoms or signs - Diet and Activity Activity: increase activity as tolerated Interval History: Mr. Cedeno 57-year-old male with significant past medical history of tobacco abuse, hypertension, BPH admitted with acute on chronic respiratory failure. He has a significant smoking history, pain all chest concerning for underlying emphysema and was admitted one year ago for right lower lobe pneumonia with prolonged hospital stay and difficulty weaning oxygen. Upon admission he required increased oxygen demand nasal cannula oxygen, diffuse wheezing with diminished breath sounds bilaterally. Respiratory infectious panel was positive for influenza A, he is treated for COPD exacerbation started on Tamiflu. Throughout his inpatient stay he had difficulty weaning off nasal cannula oxygen but his overall respiratory status improved. At the time of discharge on 06/08/2017 he continued to require 3 L nasal cannula oxygen to maintain oxygen saturations between 88-92%, for which she was discharged with home oxygen. He was provided scripts for the remainder of his Tamiflu, by mouth prednisone and Levaquin. He was also discussed that he should follow up with pulmonology at the time of discharge, for which she is agreeable and appointment will be scheduled. Hospital course: Mr. Cedeno is a 57 year old male - Time Spent with Patient Total time spent providing and/or coordinating discharge services: - Constitutional Vitals: Temp Pulse Resp BP Pulse Ox 97.7 F 67 18 116/75 93 05/29/17 08:00 05/29/17 08:00 05/29/17 08:00 05/29/17 08:00 05/29/17 08:00 General appearance: Present: A&O X 3 Exam: General: Patient alert, awake, oriented 3, interactive, in no acute distress HEENT: Normocephalic, atraumatic, pupils equal reactive to light, nasal cavity patent and open septum median position, oral mucosa moist, uvula midline, neck supple trachea midline no palpable lymphadenopathy, no thyromegaly. Chest: Barrel chest, mild increased respiratory rate, improved compared to yesterday. signs of secondary muscle use including scalenes and sternocleidomastoid muscles. Patient demonstrating retractions with inspiration. Cardiac: Regular rate and rhythm, positive S1 and S2. no bruits appreciated bilateral carotids, Radial pulses 2+ bilateral, posterior tibial and dorsal pedal pulses 2+ bilateral. Respiratory: Mild expiratory wheeze, clear to auscultation lung bases.. Abdomen: Soft, mild tenderness in left upper quadrant, positive bowel sounds, no palpable masses appreciated on examination Extremities: Symmetric bilateral, bilateral lower extremities without erythema or edema patient moving all 4 extremities spontaneously. Neurologic: No focal deficits appreciated on examination. Face symmetric, muscle strength symmetric bilateral upper and lower extremities. <Hang Palmer A - Last Filed: 05/29/17 17:20> Date of Encounter: 05/29/17 - Discharge Diagnosis (1) Acute respiratory failure with hypoxia and hypercapnia Status: Resolved (2) COPD exacerbation Status: Acute (3) Influenza A Status: Acute (4) Hypertension Status: Chronic Qualifiers: Hypertension type: essential hypertension Qualified Code(s): I10 - Essential (primary) hypertension (5) Tobacco abuse Status: Chronic (6) Chronic respiratory failure with hypoxia Priority: Secondary Status: Chronic Date of admission: 05/27/17 19:08 Primary care physician: Dara Mull[facility] course: Mr. Cedeno is a 57 year old male - Time Spent with Patient Total time spent providing and/or coordinating discharge services: - Constitutional Vitals: Temp Pulse Resp BP Pulse Ox 97.7 F 67 18 116/75 93 05/29/17 08:00 05/29/17 08:00 05/29/17 08:00 05/29/17 08:00 05/29/17 08:15 - Attending Attestation I examined this patient and my medical decision-making was reviewed with the Resident Physician on 05/29/17. I agree with the documented findings, disposition and treatment plan as described except to the extent set forth below. Mr Cedeno has been admitted for resp failure and COPD exacerbation as well as acute influenza. He was managed with oxygen, steroids, abx and Tamiflu. He had very slow improvement in his symptoms. Oxygen was weaned as much as possible but ultimately he qualified for oxygen continuously at home. On 05/29/17 he was afebrile with stable vitals. He was breathing much better and home oxygen was arranged. At that time he was ready for discharge home Exam alert. Comfortable Mucus membranes dry Heart reg Scant wheeze abd soft Plan D/C home today.
== END 2017-05-29 14:27 | disposition home or self-care (01) | DRG 190 ==
LOC: EMEROO 11:54 → 2NENU 11:54 → SUATTDRO 14:51 → 2NENU 15:32
PROVIDERS: ADMIT Internal Medicine; ATTEND Internal Medicine

== ENCOUNTER 2019-02-26 14:54 | Observation (INO) ==
[2019-02-26] MEDS ORDERED: Ipratropium/Albuterol Neb 3 ML IH ONE (15:01)
[2019-02-26] MEDS ORDERED: methylPREDNISolone 125 MG/2 ML VIAL IVP ONE (15:07)
[2019-02-26 15:46] LABS: Basophils # 0.1 K/mcL (0.0-0.2); Basophils % 0.4 %; Eosinophils % 5.2 %; Hematocrit 46.1 % (37.5-50.1); Hemoglobin 16.2 g/dL (12.9-16.9); Immature Granulocytes % 0.4 % (0-4); Lymphocytes # 2.2 K/mcL (0.6-4.6); Lymphocytes % 11.8 %; Mean Corpuscular HGB Conc 35.1 g/dL (31.6-35.5); Mean Corpuscular Hemoglobin 31.3 pg (28.0-33.3); Mean Corpuscular Volume 89.2 fL (83.0-100.0); Mean Platelet Volume 9.1 fL (9.4-12.4); Monocytes # 1.7 K/mcL (0.0-1.3); Monocytes % 8.9 %; Neutrophils # 13.9 K/mcL (1.6-8.9); Platelet Count 304 K/mcL (140-400); Red Blood Count 5.17 M/mcL (4.19-5.50); Red Cell Distribution Width 13.2 % (11.5-14.5); Segmented Neutrophils % 73.3 %
[2019-02-26] MEDS ORDERED: 0.9 % Sodium Chloride 1,000 ML IVC ONE (15:50)
[2019-02-26 16:09] LABS: BUN/Creatinine Ratio 14 (6-26); Blood Urea Nitrogen 14 mg/dL (8-23); Calcium 9.9 mg/dL (8.6-10.3); Carbon Dioxide 26 mEq/L (23-29); Chloride 100 mEq/L (98-107); Glucose 102 mg/dL (70-105); Osmolality,Calculated 281 (280-300); Potassium 4.8 mEq/L (3.5-5.1); Sodium 135 mEq/L (136-145); eGFR For African Americans > 60 (> 60); eGFR For Non-African Americans > 60 (> 60)
[2019-02-26 16:10] LABS: Troponin I < 0.03 ng/mL (< 0.04)
[2019-02-26 16:15] LABS: VBG HCO3 29 mEq/L (21-27); VBG PCO2 52 mmHg (41-51); VBG PH 7.35 pH Units (7.32-7.42); VBG PO2 76 mmHg (25-50)
[2019-02-26] MEDS ORDERED: Naloxone 0.4 MG/ML INJ IVP PRN (17:57)
[2019-02-26] MEDS ORDERED: Ondansetron 4 MG/2 ML VIAL IVP PRN (17:57)
[2019-02-26] MEDS: Doxycycline 100 MG in 0.9 % Sodium Chloride Mini Bag 100 ML IVPB SCH (18:50)
[2019-02-26] MEDS: MethylPREDNISolone 40 MG/ML VIAL IVP SCH (18:50)
[2019-02-26] MEDS: 0.9 % Sodium Chloride 1,000 ML IVC SCH (18:50)
[2019-02-26] MEDS: Levalbuterol Neb 0.63 MG/3 ML IH SCH ×2 (20:06→21:29)
[2019-02-26] MEDS: Ipratropium Neb 0.5 MG NEBULIZER IH SCH (20:07)
[2019-02-26] MEDS: Budesonide/Formoterol 160/4.5 1 PUFF INH IH SCH (20:07)
[2019-02-26] MEDS: Gabapentin 300 MG CAPSULE PO SCH (21:10)
[2019-02-26] MEDS: *HR* Heparin 5,000 UNIT/ML VIAL SQ SCH (21:10)
[2019-02-27] MEDS: Ipratropium Neb 0.5 MG NEBULIZER IH SCH ×7 (00:50→23:09)
[2019-02-27] MEDS: MethylPREDNISolone 40 MG/ML VIAL IVP SCH ×4 (01:06→21:19)
[2019-02-27] MEDS: Levalbuterol Neb 0.63 MG/3 ML IH SCH ×4 (04:24→19:50)
[2019-02-27] MEDS ORDERED: traMADol 50 MG TABLET PO ONE (04:30)
[2019-02-27] MEDS: Doxycycline 100 MG in 0.9 % Sodium Chloride Mini Bag 100 ML IVPB SCH ×2 (05:14→16:46)
[2019-02-27] MEDS: *HR* Heparin 5,000 UNIT/ML VIAL SQ SCH ×3 (05:15→21:18)
[2019-02-27 07:46] LABS: Basophils % 0.1 %; Hematocrit 40.4 % (37.5-50.1); Hemoglobin 14.1 g/dL (12.9-16.9); Immature Platelets 3.6 % (1.1-6.1); Lymphocytes # 1.4 K/mcL (0.6-4.6); Lymphocytes % 10.2 %; Mean Corpuscular HGB Conc 34.9 g/dL (31.6-35.5); Mean Corpuscular Hemoglobin 31.2 pg (28.0-33.3); Mean Corpuscular Volume 89.4 fL (83.0-100.0); Mean Platelet Volume 9.5 fL (9.4-12.4); Monocytes # 0.3 K/mcL (0.0-1.3); Monocytes % 2.1 %; Neutrophils # 11.9 K/mcL (1.6-8.9); Platelet Count 252 K/mcL (140-400); Red Blood Count 4.52 M/mcL (4.19-5.50); Red Cell Distribution Width 13.2 % (11.5-14.5); Segmented Neutrophils % 86.6 %; White Blood Count 13.8 K/mcL (4.3-11.1)
[2019-02-27] MEDS: Budesonide/Formoterol 160/4.5 1 PUFF INH IH SCH ×2 (07:50→19:50)
[2019-02-27 08:13] LABS: BUN/Creatinine Ratio 22 (6-26); Blood Urea Nitrogen 19 mg/dL (8-23); Carbon Dioxide 26 mEq/L (23-29); Chloride 102 mEq/L (98-107); Glucose 134 mg/dL (70-105); Osmolality,Calculated 286 (280-300); Potassium 4.4 mEq/L (3.5-5.1); Sodium 136 mEq/L (136-145); eGFR For African Americans > 60 (> 60); eGFR For Non-African Americans > 60 (> 60)
[2019-02-27] MEDS: Gabapentin 300 MG CAPSULE PO SCH ×2 (09:31→21:18)
[2019-02-27] MEDS: 0.9 % Sodium Chloride 1,000 ML IVC SCH (09:32)
[2019-02-27 13:03] LABS: ABG Base Excess 2 mEq/L (-2 to 3); ABG HCO3 28 mEq/L (21-27); ABG Oxygen Saturation 96 % (95-98); ABG PCO2 48 mmHg (35-45); ABG PH 7.38 pH Units (7.32-7.45); ABG PO2 86 mmHg (85-104); ABG TCO2 29 mEq/L (20-26)
[2019-02-28] MEDS: Ipratropium Neb 0.5 MG NEBULIZER IH SCH ×2 (03:36→07:38)
[2019-02-28] MEDS: Levalbuterol Neb 0.63 MG/3 ML IH SCH (03:36)
[2019-02-28] MEDS: *HR* Heparin 5,000 UNIT/ML VIAL SQ SCH (05:19)
[2019-02-28] MEDS: MethylPREDNISolone 40 MG/ML VIAL IVP SCH (05:19)
[2019-02-28] MEDS: Doxycycline 100 MG in 0.9 % Sodium Chloride Mini Bag 100 ML IVPB SCH (05:19)
[2019-02-28 05:39] LABS: Basophils % 0.1 %; Hematocrit 38.2 % (37.5-50.1); Immature Granulocytes % 0.9 % (0-4); Lymphocytes % 8.9 %; Mean Corpuscular HGB Conc 34.8 g/dL (31.6-35.5); Mean Corpuscular Hemoglobin 31.2 pg (28.0-33.3); Mean Corpuscular Volume 89.7 fL (83.0-100.0); Mean Platelet Volume 9.5 fL (9.4-12.4); Monocytes # 1.5 K/mcL (0.0-1.3); Monocytes % 6.7 %; Neutrophils # 18.8 K/mcL (1.6-8.9); Platelet Count 262 K/mcL (140-400); Red Blood Count 4.26 M/mcL (4.19-5.50); Red Cell Distribution Width 13.2 % (11.5-14.5); Segmented Neutrophils % 83.4 %; White Blood Count 22.5 K/mcL (4.3-11.1)
[2019-02-28 05:40] LABS: Hemoglobin 13.3 g/dL (12.9-16.9)
[2019-02-28 07:27] VITALS: BP 146/76
[2019-02-28] MEDS: Budesonide/Formoterol 160/4.5 1 PUFF INH IH SCH (07:38)
[2019-02-28] MEDS: Gabapentin 300 MG CAPSULE PO SCH (08:06)
== END 2019-02-28 10:47 | disposition home or self-care (01) ==
LOC: EMEROOARM 14:54 → 2ANU 14:54 → SUATTDRO 17:29 → 2ANU 18:45
PROVIDERS: ADMIT Student in an Organized Health Care Education/Training Program; ATTEND Family Medicine

== ENCOUNTER 2021-07-02 07:34 | Observation (INO) ==
[2021-07-02] MEDS ORDERED: Ondansetron 4 MG/2 ML VIAL IVP PRN (08:03)
[2021-07-02] MEDS: Ringers Solution, Lactated 1,000 ML IVC SCH (08:27)
[2021-07-02] MEDS ORDERED: *HR* FentaNYL (PF) 100 MCG/2 ML VIAL ONE (08:31)
[2021-07-02] MEDS ORDERED: Ondansetron 4 MG/2 ML VIAL ONE (08:31)
[2021-07-02] MEDS ORDERED: Lidocaine -MPF 2% 5 ML VIAL ONE (08:31)
[2021-07-02] MEDS ORDERED: *HR* Succinylcholine 200 MG/10 ML VIAL IVP ONE (08:31)
[2021-07-02] MEDS ORDERED: *HR* Rocuronium Bromide 50 MG/5 ML VIAL ONE (08:31)
[2021-07-02] MEDS ORDERED: Lidocaine HCL 4 ML Topical Solution (Laryng-O-Jet Kit Sterile Pak) TP ONE ×2 (08:31)
[2021-07-02] MEDS ORDERED: EPHEDrine 50 MG/ML VIAL ONE (10:24)
[2021-07-02] MEDS ORDERED: *HR* EPINEPHrine 1 MG/10 ML SYRINGE INTRATRACH PRN (10:33)
[2021-07-02] MEDS: *HR* Heparin 5,000 UNIT/ML VIAL SQ SCH ×2 (14:10→21:21)
[2021-07-02] MEDS: Budesonide/Formoterol 160/4.5 1 PUFF INH IH SCH (15:58)
[2021-07-02] MEDS: Acetaminophen 325 MG TABLET PO PRN (19:40)
[2021-07-02] MEDS: Gabapentin 300 MG CAPSULE PO SCH (21:21)
[2021-07-03] MEDS: Budesonide/Formoterol 160/4.5 1 PUFF INH IH SCH ×3 (00:08→19:38)
[2021-07-03] MEDS: *HR* Heparin 5,000 UNIT/ML VIAL SQ SCH ×3 (05:31→20:09)
[2021-07-03] MEDS: Acetaminophen 325 MG TABLET PO PRN ×2 (05:37→20:08)
[2021-07-03] MEDS: Ringers Solution, Lactated 1,000 ML IVC SCH (07:27)
[2021-07-03 07:29] LABS: Basophils % 0.2 %; Eosinophils % 0.2 %; Hematocrit 39.5 % (37.5-50.1); Hemoglobin 13.6 g/dL (12.9-16.9); Immature Granulocytes % 0.5 % (0-4); Lymphocytes # 2.8 K/mcL (0.6-4.6); Lymphocytes % 14.9 %; Mean Corpuscular HGB Conc 34.4 g/dL (31.6-35.5); Mean Corpuscular Hemoglobin 30.7 pg (28.0-33.3); Mean Corpuscular Volume 89.2 fL (83.0-100.0); Mean Platelet Volume 9.9 fL (9.4-12.4); Monocytes # 1.8 K/mcL (0.0-1.3); Monocytes % 9.4 %; Platelet Count 301 K/mcL (140-400); Red Blood Count 4.43 M/mcL (4.19-5.50); Red Cell Distribution Width 14.5 % (11.5-14.5); Segmented Neutrophils % 74.8 %; White Blood Count 18.7 K/mcL (4.3-11.1)
[2021-07-03 07:51] LABS: BUN/Creatinine Ratio 23 (6-26); Blood Urea Nitrogen 21 mg/dL (8-23); Calcium 9.1 mg/dL (8.6-10.3); Carbon Dioxide 29 mEq/L (23-29); Chloride 100 mEq/L (98-107); Glucose 117 mg/dL (70-105); Osmolality,Calculated 284 (280-300); Potassium 4.4 mEq/L (3.5-5.1); Sodium 135 mEq/L (136-145); eGFR For African Americans > 60 (> 60); eGFR For Non-African Americans > 60 (> 60)
[2021-07-03] MEDS: Gabapentin 300 MG CAPSULE PO SCH (08:31)
[2021-07-03] MEDS ORDERED: hydrOXYzine pamoate 25 MG CAPSULE PO SCH (09:00)
[2021-07-03] MEDS ORDERED: Tiotropium 10 INH DOSE IH SCH (10:00)
[2021-07-03] MEDS ORDERED: Gabapentin 400 MG CAPSULE PO SCH (15:00)
[2021-07-03] MEDS: Gabapentin 400 MG CAPSULE PO SCH ×2 (15:41→20:08)
[2021-07-04] MEDS: *HR* Heparin 5,000 UNIT/ML VIAL SQ SCH ×3 (06:13→20:58)
[2021-07-04] MEDS: Acetaminophen 325 MG TABLET PO PRN ×2 (06:18→12:18)
[2021-07-04] MEDS: hydrOXYzine pamoate 25 MG CAPSULE PO SCH (07:51)
[2021-07-04] MEDS: Gabapentin 400 MG CAPSULE PO SCH ×3 (07:51→20:58)
[2021-07-04] MEDS: Budesonide/Formoterol 160/4.5 1 PUFF INH IH SCH ×2 (08:32→20:45)
[2021-07-04] MEDS: Tiotropium 10 INH DOSE IH SCH (08:33)
[2021-07-04 09:15] LABS: Basophils % 0.3 %; Eosinophils # 0.6 K/mcL (0.0-0.6); Eosinophils % 3.9 %; Hemoglobin 14.3 g/dL (12.9-16.9); Immature Granulocytes % 0.3 % (0-4); Lymphocytes # 3.2 K/mcL (0.6-4.6); Lymphocytes % 22.5 %; Mean Corpuscular Hemoglobin 30.5 pg (28.0-33.3); Mean Corpuscular Volume 89.6 fL (83.0-100.0); Mean Platelet Volume 10.4 fL (9.4-12.4); Monocytes # 1.6 K/mcL (0.0-1.3); Neutrophils # 8.9 K/mcL (1.6-8.9); Platelet Count 314 K/mcL (140-400); Red Blood Count 4.69 M/mcL (4.19-5.50); Red Cell Distribution Width 14.5 % (11.5-14.5); White Blood Count 14.3 K/mcL (4.3-11.1)
[2021-07-04 09:28] LABS: BUN/Creatinine Ratio 22 (6-26); Blood Urea Nitrogen 20 mg/dL (8-23); Calcium 9.5 mg/dL (8.6-10.3); Carbon Dioxide 31 mEq/L (23-29); Chloride 100 mEq/L (98-107); Glucose 92 mg/dL (70-105); Magnesium 1.7 mg/dL (1.6-2.6); Osmolality,Calculated 284 (280-300); Potassium 3.9 mEq/L (3.5-5.1); Sodium 136 mEq/L (136-145); eGFR For African Americans > 60 (> 60); eGFR For Non-African Americans > 60 (> 60)
[2021-07-04] MEDS: predniSONE 20 MG TABLET PO SCH (10:05)
[2021-07-05 01:43] LABS: Basophils % 0.1 %; Eosinophils % 0.1 %; Hematocrit 40.1 % (37.5-50.1); Immature Granulocytes % 0.5 % (0-4); Lymphocytes # 2.5 K/mcL (0.6-4.6); Lymphocytes % 17.9 %; Mean Corpuscular HGB Conc 34.9 g/dL (31.6-35.5); Mean Corpuscular Volume 88.9 fL (83.0-100.0); Mean Platelet Volume 10.2 fL (9.4-12.4); Monocytes # 1.2 K/mcL (0.0-1.3); Monocytes % 8.5 %; Neutrophils # 10.3 K/mcL (1.6-8.9); Platelet Count 302 K/mcL (140-400); Red Blood Count 4.51 M/mcL (4.19-5.50); Red Cell Distribution Width 14.2 % (11.5-14.5); Segmented Neutrophils % 72.9 %; White Blood Count 14.1 K/mcL (4.3-11.1)
[2021-07-05 01:56] LABS: BUN/Creatinine Ratio 30 (6-26); Blood Urea Nitrogen 31 mg/dL (8-23); Calcium 9.6 mg/dL (8.6-10.3); Carbon Dioxide 29 mEq/L (23-29); Chloride 103 mEq/L (98-107); Glucose 110 mg/dL (70-105); Osmolality,Calculated 297 (280-300); Potassium 4.4 mEq/L (3.5-5.1); Sodium 140 mEq/L (136-145); eGFR For African Americans > 60 (> 60); eGFR For Non-African Americans > 60 (> 60)
[2021-07-05] MEDS: *HR* Heparin 5,000 UNIT/ML VIAL SQ SCH (05:58)
[2021-07-05] MEDS: Acetaminophen 325 MG TABLET PO PRN (06:04)
[2021-07-05 07:33] VITALS: BP 125/99; PULSE 58; TEMP 98.3; O2SAT 94
[2021-07-05] MEDS: predniSONE 20 MG TABLET PO SCH (08:42)
[2021-07-05] MEDS: Gabapentin 400 MG CAPSULE PO SCH (08:43)
[2021-07-05] MEDS: hydrOXYzine pamoate 25 MG CAPSULE PO SCH (08:43)
[2021-07-05] MEDS: Budesonide/Formoterol 160/4.5 1 PUFF INH IH SCH (10:14)
[2021-07-05] MEDS: Tiotropium 10 INH DOSE IH SCH (10:16)
== END 2021-07-05 11:45 | disposition home or self-care (01) ==
LOC: SAMDAY 07:34 → ICNU 11:41 → INTOOBSV 11:42 → SUATTDRO 11:42 → 2NNU 07-03 14:48
PROVIDERS: ADMIT Internal Medicine Pulmonary Disease; ATTEND Internal Medicine
PROC: ENDOLBX (2021-07-02 08:40)

== ENCOUNTER 2022-01-16 09:50 | Inpatient (IN) ==
[2022-01-16] MEDS ORDERED: methylPREDNISolone 125 MG/2 ML VIAL IVP ONE (10:25)
[2022-01-16] MEDS ORDERED: Ipratropium/Albuterol Neb 3 ML ONE ×2 (10:29→12:42)
[2022-01-16] MEDS ORDERED: Ondansetron 4 MG/2 ML VIAL IVP ONE (10:30)
[2022-01-16] MEDS ORDERED: Ondansetron 4 MG/2 ML VIAL ONE (10:30)
[2022-01-16] MEDS ORDERED: Ipratropium/Albuterol Neb 3 ML IH ONE ×2 (10:36→11:26)
[2022-01-16 10:51] LABS: ABG Base Excess -3 mEq/L (-2 to 3); ABG HCO3 23 mEq/L (21-27); ABG Oxygen Saturation 100 % (95-98); ABG PCO2 41 mmHg (35-45); ABG PH 7.36 pH Units (7.32-7.45); ABG PO2 204 mmHg (85-104); ABG TCO2 24 mEq/L (20-26)
[2022-01-16] MEDS ORDERED: Iopamidol - 370 500 ML MLS IVP ONE ×2 (11:23→12:02)
[2022-01-16 11:25] LABS: Basophils % 0.3 %; Eosinophils # 0.1 K/mcL (0.0-0.6); Eosinophils % 0.5 %; Hematocrit 44.3 % (37.5-50.1); Hemoglobin 14.9 g/dL (12.9-16.9); Immature Granulocytes % 0.3 % (0-4); Lymphocytes # 2.7 K/mcL (0.6-4.6); Lymphocytes % 20.5 %; Mean Corpuscular HGB Conc 33.6 g/dL (31.6-35.5); Mean Corpuscular Hemoglobin 30.2 pg (28.0-33.3); Mean Corpuscular Volume 89.9 fL (83.0-100.0); Mean Platelet Volume 9.2 fL (9.4-12.4); Monocytes # 0.9 K/mcL (0.0-1.3); Monocytes % 7.1 %; Neutrophils # 9.4 K/mcL (1.6-8.9); Platelet Count 332 K/mcL (140-400); Red Blood Count 4.93 M/mcL (4.19-5.50); Red Cell Distribution Width 14.8 % (11.5-14.5); Segmented Neutrophils % 71.3 %; White Blood Count 13.2 K/mcL (4.3-11.1)
[2022-01-16 11:34] LABS: INR 1.1; Prothrombin Time 11.9 Seconds (9.4-12.1)
[2022-01-16 11:43] LABS: Alanine Aminotransferase 8 Units/L (7-52); Albumin 4.6 g/dL (3.5-5.7); Albumin/Globulin Ratio 1.4 (1.1-2.2); Alkaline Phosphatase 63 Units/L (34-104); Aspartate Amino Transferase 16 Units/L (13-39); Bilirubin,Direct 0.1 mg/dL (0.0-0.2); Bilirubin,Indirect 0.5 mg/dL (0.0-1.0); Bilirubin,Total 0.6 mg/dL (0.3-1.0); Globulin 3.2 g/dL (2.4-3.5); Lipase 10 Units/L (11-82); Total Protein 7.8 g/dL (6.4-8.9)
[2022-01-16 11:44] LABS: Troponin I < 0.03 ng/mL (< 0.04)
[2022-01-16 12:15] LABS: Influenza A PCR Negative (Negative); Influenza B PCR Negative (Negative); Resp. Syncytial Virus PCR Negative (Negative); SARS-CoV-2 by PCR (In House) Negative (Negative)
[2022-01-16 12:27] LABS: BUN/Creatinine Ratio 24 (6-26); Blood Urea Nitrogen 25 mg/dL (8-23); Calcium 9.9 mg/dL (8.6-10.3); Carbon Dioxide 22 mEq/L (23-29); Chloride 101 mEq/L (98-107); Glucose 90 mg/dL (70-105); Osmolality,Calculated 290 (280-300); Potassium 4.6 mEq/L (3.5-5.1); Sodium 138 mEq/L (136-145)
[2022-01-16] MEDS ORDERED: Ipratropium/Albuterol Neb 3 ML IH SCH (12:45)
[2022-01-16] MEDS ORDERED: Ondansetron 4 MG/2 ML VIAL IVP PRN (15:05)
[2022-01-16] MEDS ORDERED: Mag Hydrox/Al Hydrox/Simeth 30 ML UDC PO PRN (15:05)
[2022-01-16] MEDS ORDERED: Naloxone 0.4 MG/ML INJ IVP PRN (15:05)
[2022-01-16] MEDS ORDERED: Melatonin 3 MG TABLET PO PRN (15:05)
[2022-01-16] MEDS ORDERED: Acetaminophen 325 MG TABLET PO PRN (15:05)
[2022-01-16] MEDS ORDERED: MOM Conc 10 ML UD.LIQ PO PRN (15:05)
[2022-01-16] MEDS ORDERED: Ipratropium Neb 0.5 MG NEBULIZER IH PRN (15:10)
[2022-01-16] MEDS: Ipratropium/Albuterol Neb 3 ML IH SCH ×2 (15:38→20:22)
[2022-01-16] MEDS ORDERED: levoFLOXacin 750 MG/150 ML 750 MG/150 ML BAG IVPB SCH (17:00)
[2022-01-16] MEDS: MethylPREDNISolone 40 MG/ML VIAL IVP SCH ×2 (17:53→23:37)
[2022-01-16] MEDS: Pantoprazole 40 MG VIAL IVP SCH (17:54)
[2022-01-16] MEDS: Gabapentin 400 MG CAPSULE PO SCH (20:10)
[2022-01-16] MEDS: Budesonide/Formoterol 160/4.5 1 PUFF INH IH SCH (20:22)
[2022-01-17 03:22] LABS: Basophils % 0.1 %; Hemoglobin 13.8 g/dL (12.9-16.9); Immature Granulocytes % 0.4 % (0-4); Lymphocytes # 1.4 K/mcL (0.6-4.6); Lymphocytes % 12.1 %; Mean Corpuscular HGB Conc 34.5 g/dL (31.6-35.5); Mean Corpuscular Hemoglobin 30.1 pg (28.0-33.3); Mean Corpuscular Volume 87.1 fL (83.0-100.0); Mean Platelet Volume 9.1 fL (9.4-12.4); Monocytes # 0.2 K/mcL (0.0-1.3); Monocytes % 1.6 %; Neutrophils # 9.7 K/mcL (1.6-8.9); Platelet Count 312 K/mcL (140-400); Red Blood Count 4.59 M/mcL (4.19-5.50); Red Cell Distribution Width 14.5 % (11.5-14.5); Segmented Neutrophils % 85.8 %; White Blood Count 11.3 K/mcL (4.3-11.1)
[2022-01-17 03:38] LABS: Calcium 9.8 mg/dL (8.6-10.3); Magnesium 1.9 mg/dL (1.6-2.6); Phosphorous 2.7 mg/dL (2.7-4.5); Potassium 4.3 mEq/L (3.5-5.1)
[2022-01-17] MEDS: Pantoprazole 40 MG VIAL IVP SCH ×2 (06:02→17:28)
[2022-01-17] MEDS: Ipratropium/Albuterol Neb 3 ML IH SCH ×4 (06:05→21:56)
[2022-01-17] MEDS ORDERED: Azithromycin 250 MG TABLET PO ONE (07:33)
[2022-01-17] MEDS: MethylPREDNISolone 40 MG/ML VIAL IVP SCH ×2 (07:48→14:49)
[2022-01-17] MEDS: Gabapentin 400 MG CAPSULE PO SCH ×3 (07:48→20:21)
[2022-01-17] MEDS: Lisinopril-HCTZ 20-12.5mg TABLET PO SCH (07:49)
[2022-01-17] MEDS: Budesonide/Formoterol 160/4.5 1 PUFF INH IH SCH ×2 (09:19→21:52)
[2022-01-17 18:00] LABS: Bilirubin,Urine Negative (Negative); Blood,Urine Negative (Negative); Clarity,Urine Clear (Clear); Color,Urine Yellow (Yellow); Glucose,Urine (UA) 70 mg/dL (Normal); Ketones,Urine 40 mg/dL (Negative); Leukocyte Esterase,Urine Negative (Negative); Mucus,Urine Few per lpf (None-Few); Nitrite,Urine Negative (Negative); Protein,Urine 30 mg/dL (Neg-Trace); RBC,Urine 0-3 per hpf (0-3); Specific Gravity,Urine > 1.030 (1.010-1.025); Squamous Epithelial Cell,Urine Few per hpf (None-Few); Urobilinogen,Urine Normal (Normal); WBC,Urine 0-3 per hpf (0-3)
[2022-01-18] MEDS: MethylPREDNISolone 40 MG/ML VIAL IVP SCH ×3 (01:18→19:58)
[2022-01-18] MEDS: Ipratropium/Albuterol Neb 3 ML IH SCH ×4 (04:31→21:37)
[2022-01-18] MEDS: Pantoprazole 40 MG VIAL IVP SCH (05:50)
[2022-01-18 06:38] LABS: Basophils % 0.1 %; Hematocrit 39.7 % (37.5-50.1); Hemoglobin 13.8 g/dL (12.9-16.9); Immature Granulocytes % 0.8 % (0-4); Lymphocytes # 1.5 K/mcL (0.6-4.6); Lymphocytes % 6.1 %; Mean Corpuscular HGB Conc 34.8 g/dL (31.6-35.5); Mean Corpuscular Hemoglobin 30.4 pg (28.0-33.3); Mean Corpuscular Volume 87.4 fL (83.0-100.0); Mean Platelet Volume 9.5 fL (9.4-12.4); Monocytes # 2.5 K/mcL (0.0-1.3); Monocytes % 10.2 %; Neutrophils # 20.2 K/mcL (1.6-8.9); Platelet Count 338 K/mcL (140-400); Red Blood Count 4.54 M/mcL (4.19-5.50); Red Cell Distribution Width 15.1 % (11.5-14.5); Segmented Neutrophils % 82.8 %
[2022-01-18 06:45] LABS: White Blood Count 24.4 K/mcL (4.3-11.1)
[2022-01-18 07:00] LABS: Calcium 9.8 mg/dL (8.6-10.3); Potassium 4.4 mEq/L (3.5-5.1)
[2022-01-18] MEDS: Azithromycin 250 MG TABLET PO SCH (07:48)
[2022-01-18] MEDS: Lisinopril-HCTZ 20-12.5mg TABLET PO SCH (07:48)
[2022-01-18] MEDS: Gabapentin 400 MG CAPSULE PO SCH (07:48)
[2022-01-18] MEDS: Ringers Solution, Lactated 1,000 ML IVC SCH ×2 (09:23→23:15)
[2022-01-18] MEDS: Budesonide/Formoterol 160/4.5 1 PUFF INH IH SCH ×2 (10:40→21:37)
[2022-01-19 01:34] LABS: Basophils % 0.1 %; Hematocrit 37.2 % (37.5-50.1); Hemoglobin 12.4 g/dL (12.9-16.9); Immature Granulocytes % 0.7 % (0-4); Lymphocytes # 0.9 K/mcL (0.6-4.6); Mean Corpuscular HGB Conc 33.3 g/dL (31.6-35.5); Mean Corpuscular Hemoglobin 29.6 pg (28.0-33.3); Mean Corpuscular Volume 88.8 fL (83.0-100.0); Mean Platelet Volume 9.7 fL (9.4-12.4); Monocytes # 0.5 K/mcL (0.0-1.3); Monocytes % 2.8 %; Neutrophils # 16.7 K/mcL (1.6-8.9); Platelet Count 298 K/mcL (140-400); Red Blood Count 4.19 M/mcL (4.19-5.50); Red Cell Distribution Width 15.4 % (11.5-14.5); Segmented Neutrophils % 91.4 %; White Blood Count 18.3 K/mcL (4.3-11.1)
[2022-01-19 01:56] LABS: Calcium 9.3 mg/dL (8.6-10.3); Potassium 4.5 mEq/L (3.5-5.1)
[2022-01-19] MEDS: Ipratropium/Albuterol Neb 3 ML IH SCH ×2 (04:05→11:00)
[2022-01-19] MEDS: MethylPREDNISolone 40 MG/ML VIAL IVP SCH (08:09)
[2022-01-19] MEDS: Azithromycin 250 MG TABLET PO SCH (08:09)
[2022-01-19 10:52] VITALS: BP 125/68; PULSE 78; TEMP 98.2; O2SAT 94
[2022-01-19] MEDS: Budesonide/Formoterol 160/4.5 1 PUFF INH IH SCH (11:00)
== END 2022-01-19 14:17 | disposition home or self-care (01) | DRG 189 ==
LOC: 3BNU 09:50 → EMEROOARM 09:50 → SUATTDRO 14:12 → 3BNU 15:23
PROVIDERS: ADMIT Internal Medicine; ATTEND Internal Medicine